=== PATIENT | female | born 1960 | race Caucasian/White ===

== ENCOUNTER 2024-09-08 18:17 | Emergency (ER) | payer MEDICARE, SELFPAY ==
[2024-09-08] VITALS (33 sets, daily range): BP systolic 86–130; BP diastolic 55–103; PULSE 88–118; RESP 13–28; TEMP 37.1–39.4; O2SAT 94–100
--- NOTE | ~2024-09-08 | CT_ITS ---
EXAMINATION: CT abdomen pelvis w con DATE: 09/08/2024 20:45 INDICATION: Sepsis. Diarrhea. TECHNIQUE: Computed tomography (CT) of the abdomen and pelvis was performed with 100 mL Omnipaque 350 intravenous contrast. Automated exposure control and iterative reconstruction technique were employe d. The dose-length product was 661.65 mGy-cm. COMPARISON: None. FINDINGS: The visualized portions of the lung bases demonstrate mild atelectasis. No pleural effusion . The heart size is normal. No pericardial effusion. Motion artifact is noted. There are cysts in the liver measuring up to 10 mm. The gallbladder and spleen are normal. There is a gastrostomy tube in e xpected position. The adrenal glands are normal. There is moderate atrophy of right kidney and mild a trophy of left kidney. There are cysts in the kidneys measuring up to 2.1 cm on the right. There are approximately 6 stones in right kidney measuring up to 5 mm. There is mild right hydroureter. There i s mild left hydronephrosis and hydroureter. There is urothelial enhancement of both ureters, consiste nt with pyelitis. There is diffuse bladder wall thickening, consistent with cystitis. There is a Fole y catheter in expected position. There is a large volume of stool in the colon. The appendix is not v isualized. There is a 12 mm uterine fibroid. There are no pathologically enlarged lymph nodes. There is no free intraperitoneal fluid. There are erosions of right parasymphyseal pubis near the course of the Nichols catheter. There is mild lumbar spondylosis. IMPRESSION: 1. Cystitis. 2. Bilateral pyelitis. Mild right hydroureter. Mild left hydronephrosis and hydroureter. 3. Erosions of right pubic symphysis, consistent with osteomyelitis, likely secondary to urinary trac t infection. Reviewed, dictated and finalized at location A. AD WINDER AUTOMATIC IMPRESSION: 1. Cystitis. 2. Bilateral pyelitis. Mild right hydroureter. Mild left hydronephrosis and hyd roureter. 3. Erosions of right pubic symphysis, consistent with osteomyelitis, likely sec ondary to urinary tract infection.
--- NOTE | ~2024-09-08 | XR_ITS ---
EXAMINATION: XR chest 1V DATE: 09/08/2024 19:12 INDICATION: Pneumonia. TECHNIQUE: A single frontal view of the chest was obtained. COMPARISON: Chest 2 views 05/03/2011 FINDINGS: There is mild atelectasis in right midlung zone. There are airspace opacities in left lower lung zone. No pleural effusion or pneumothorax. The heart size is normal. IMPRESSION: 1. Airspace opacities in left lower lung zone, consistent with atelectasis versus pneumonia. Reviewed, dictated and finalized at location A. AL PLATE FILLER IMPRESSION: 1. Airspace opacities in left lower lung zone, consistent with atelectasis vers us pneumonia.
--- NOTE | ~2024-09-08 | CT_ITS ---
EXAMINATION: CT brain wo con DATE: 09/08/2024 22:04 INDICATION: Altered mental status. TECHNIQUE: Computed tomography (CT) of the head was performed without intravenous contrast. The mA wa s adjusted according to patient size. Iterative reconstruction technique was employed. The dose-lengt h product was 1286.33 mGy-cm. COMPARISON: None FINDINGS: There is diffuse brain volume loss. There is no intracranial hemorrhage, acute infarction, or abnormal intracranial mass lesion. There are scattered areas of low attenuation in the cerebral wh ite matter. The ventricles are normal in size. The orbits are normal. There is mild mucosal thickenin g in the ethmoid sinuses. The mastoid air cells are normal. IMPRESSION: 1. Extensive nonspecific cerebral white matter disease, which likely represents chronic small vessel ischemic disease. Reviewed, dictated and finalized at location A. TICAL MINISTRIES PROFESSOR
--- NOTE | 2024-09-08 18:40 | ECG_ITS ---
Test Date: 2024-09-08 19:25:57 Measurements Intervals [place] Rate: 102 P: 12 OR: 181 QRS: 51 QRSD: 104 T: 33 QT: 329 QTc: 430 Interpretive Statements SINUS TACHYCARDIA BORDERLINE ST-T WAVE ABNORMALITY- ANT/INF LEADS BASELINE ARTIFACT- I, II, III, AVR, AVL, AVF, V1 BORDERLINE ECG No previous ECG available for comparison Electronically Signed On 09-08-2024 20:23:19 [employer] by Jasbir Albright D.O.
--- NOTE | 2024-09-08 18:47 | ED_ITS ---
HPI - Altered Mental Status General Chief Complaint: Altered Mental Status <Lui Will PA-C - Last Filed: 09/09/24 02:06> Stated Complaint: AMS, bedbound <Lui Will PA-C - Last Filed: 09/09/24 02:06> Time Seen by Provider: 09/08/24 18:39 <Lui Will PA-C - Last Filed: 09/09/24 02:06> Source: patient and EMS <Lui Will PA-C - Last Filed: 09/09/24 02:06> Mode of arrival: EMS <Lui Will PA-C - Last Filed: 09/09/24 02:06> Limitations: altered mental status <Lui Will PA-C - Last Filed: 09/09/24 02:06> History of Present Illness HPI narrative: This is a 64-year-old female with PMH of MS, bedbound, chronic Nichols catheterization, G tube who presents to the ED for chief complaint of altered mental status. Family members note that she often does not speak much but is normally a lot more alert and able hold attention. They report that she has been dealing with alteration in bowel movements with soft stools and decreased output. They report she had a recent scan that showed maybe some constipation but no acute findings. They do note that she has had recurrent UTIs with a chronic Nichols catheter. Fever was onset today. <Lui Will PA-C - Last Filed: 09/09/24 02:06> Related Data Home Medications: Home Medications Medication Instructions Recorded Confirmed amantadine HCl 100 mg capsule 100 mg PO BID 09/09/24 09/09/24 baclofen 10 mg tablet 10 mg PO PRN 09/09/24 09/09/24 carbamazepine 100 mg chewable 100 mg PO PRN 09/09/24 09/09/24 tablet duloxetine 60 mg capsule,delayed 60 mg PO AC 09/09/24 09/09/24 release lacosamide 50 mg tablet (Vimpat) 50 mg PO BID 09/09/24 09/09/24 polyethylene glycol 3350 17 gram 17 g feeding tube QAM 09/09/24 09/09/24 oral powder packet (Miralax) trospium 20 mg tablet 20 mg PO QAM 09/09/24 09/09/24 <Lui Will PA-C - Last Filed: 09/09/24 02:06> Allergies/Adverse Reactions: Allergies Allergy/AdvReac Type Severity Reaction Status Date / Time ibuprofen Allergy Unknown Unknown Verified 09/08/24 18:34 Sulfa (Sulfonamide Allergy Hives Verified 09/08/24 18:34 Antibiotics) <Lui Will PA-C - Last Filed: 09/09/24 02:06> Review of Systems Review of Systems: ROS unobtainable: Yes unobtainable due to mental status <Lui Will PA-C - Last Filed: 09/09/24 02:06> [facility] Social History Social History: Social History Alcohol intake: never <Lui Will PA-C - Last Filed: 09/09/24 02:06> Exam Narrative: GENERAL: Bed-bound. Limbs contracted. HEAD: Normocephalic, atraumatic. EYES: PERRLA and EOMI. ENT: Nares clear, no rhinorrhea or epistaxis. Mucous membranes moist. Oropharynx without tonsillar hypertrophy exudate or other lesions. NECK: Supple. No adenopathy or masses. CHEST: No respiratory distress. Clear to auscultation. No wheezes rales or rhonchi HEART: Regular rate and rhythm. No murmur heard. Normal peripheral pulses. ABDOMEN: Soft, nontender, nondistended, normal active bowel sounds. MSK: Normal range of motion. No edema. SKIN: Warm, dry, no rash. NEURO: Alert. Orientation difficult to assess. Patient responds to questions appropriately on occasion. No focal deficits. Moves all extremities spontaneously. Extremities are contracted. PSYCH: Normal mood and affect. <MARY Hayward Last Filed: 09/09/24 02:06> Course Course Emergency Course: ZYCH 1700: Patient signed out to me pending transfer to [facility]. She was added to the transfer list at [facility] under Dr. Doty. Waitlisted. She was added to the transfer list at [facility] under Dr. Chase. Waitlisted. Home meds were started. Family was updated. plan for admission in the AM if she is not transferred. Transfer to [facility] overnight <Bandar Elizabeth MD - Last Filed: 09/10/24 07:19> Vital Signs Vital signs: Vital Signs Temperature 102.9 F H 09/08/24 18:21 Pulse Rate 117 H 09/08/24 18:21 Respiratory Rate 20 09/08/24 18:21 Blood Pressure 121/74 09/08/24 18:21 Pulse Oximetry 95 09/08/24 18:21 Oxygen Delivery Room Air 09/08/24 18:21 Temperature 98.7 F 09/09/24 19:25 Pulse Rate 98 09/09/24 21:54 Respiratory Rate 18 09/09/24 21:54 Blood Pressure 166/91 H 09/09/24 21:54 Pulse Oximetry 97 09/09/24 21:54 Oxygen Delivery Room Air 09/09/24 08:00 <Lui Will PA-C - Last Filed: 09/09/24 02:06> Vital Signs Temperature 102.9 F H 09/08/24 18:21 Pulse Rate 117 H 09/08/24 18:21 Respiratory Rate 20 09/08/24 18:21 Blood Pressure 121/74 09/08/24 18:21 Pulse Oximetry 95 09/08/24 18:21 Oxygen Delivery Room Air 09/08/24 18:21 Temperature 98.7 F 09/09/24 19:25 Pulse Rate 98 09/09/24 21:54 Respiratory Rate 18 09/09/24 21:54 Blood Pressure 166/91 H 09/09/24 21:54 Pulse Oximetry 97 09/09/24 21:54 Oxygen Delivery Room Air 09/09/24 08:00 <Mora Drake MD - Last Filed: 09/09/24 06:45> Vital Signs Temperature 102.9 F H 09/08/24 18:21 Pulse Rate 117 H 09/08/24 18:21 Respiratory Rate 20 09/08/24 18:21 Blood Pressure 121/74 09/08/24 18:21 Pulse Oximetry 95 09/08/24 18:21 Oxygen Delivery Room Air 09/08/24 18:21 Temperature 98.7 F 09/09/24 19:25 Pulse Rate 98 09/09/24 21:54 Respiratory Rate 18 09/09/24 21:54 Blood Pressure 166/91 H 09/09/24 21:54 Pulse Oximetry 97 11/21/24 21:54 Oxygen Delivery Room Air 09/09/24 08:00 <Bandar Elizabeth MD - Last Filed: 09/10/24 07:19> MDM - Altered Mental Status MDM Narrative Medical decision making narrative: This is a 64-year-old female with history of MS who presents to the ED for altered mental status and fever. Vitals initially showing slight tachycardia and elevated temperature of a 102.9? F. blood pressure stable. Exam remarkable for the above. Patient is protecting her airway. Lab work shows a normal white count on the CBC. CMP remarkable for slightly elevated potassium of 5.7. BUN elevated at 42 but creatinine remains normal. Lactic acid slightly elevated at 2.2 on arrival. CRP 6.4. Urinalysis shows evidence of overt infection with 3+ leuks, greater than 100 whites and reds. On arrival patient was started on sepsis protocol with sepsis pulse fluids as well as broad-spectrum antibiotics including Rocephin, meropenem, vancomycin. Rectal Tylenol was administered which did help with the fever. Tachycardia improving with fluids. CT brain: IMPRESSION: 1. Extensive nonspecific cerebral white matter disease, which likely represents chronic small vessel ischemic disease. CT abd pelvis w con: IMPRESSION: 1. Cystitis. 2. Bilateral pyelitis. Mild right hydroureter. Mild left hydronephrosis and hydroureter. 3. Erosions of right pubic symphysis, consistent with osteomyelitis, likely secondary to urinary tract infection. CXR: IMPRESSION: 1. Airspace opacities in left lower lung zone, consistent with atelectasis versus pneumonia. . Presentation today most likely consistent with urosepsis with possible associat ed osteomyelitis of the pubic symphysis. Discussed the case with our hospitalist who does recommend that patient be transferred as we do not have infectious disease. I discussed the case with Dr. Olivares ([facility] Hospitalist) at [facility]. She does accept the patient and has no further recommendations at this time Pt will be handed off to attending Dr. Drake at the time of shift change pending bed placement at [place]. <Lui Will PA-C - Last Filed: 09/09/24 02: 06> This is a 64-year-old female with history of MS who presents to the ED for altered mental status and fever. Vitals initially showing slight tachycardia and elevated temperature of a 102.9? F. blood pressure stable. Exam remarkable for the above. Patient is protecting her airway. Lab work shows a normal white count on the CBC. CMP remarkable for slightly elevated potassium of 5.7. BUN elevated at 42 but creatinine remains normal. Lactic acid slightly elevated at 2.2 on arrival. CRP 6.4. Urinalysis shows evidence of overt infection with 3+ leuks, greater than 100 whites and reds. On arrival patient was started on sepsis protocol with sepsis pulse fluids as well as broad-spectrum antibiotics including Rocephin, meropenem, vancomycin. Rectal Tylenol was administered which did help with the fever. Tachycardia improving with fluids. CT brain IMPRESSION: 1. Extensive nonspecific cerebral white matter disease, which likely represents chronic small vessel ischemic disease. CT abd pelvis w con IMPRESSION: 1. Cystitis. 2. Bilateral pyelitis. Mild right hydroureter. Mild left hydronephrosis and hydroureter. 3. Erosions of right pubic symphysis, consistent with osteomyelitis, likely se condary to urinary tract infection. CXR IMPRESSION: 1. Airspace opacities in left lower lung zone, consistent with atelectasis versus pneumonia. Presentation today most likely consistent with urosepsis with possible associated osteomyelitis of the pubic symphysis. Discussed the case with our hospitalist who does recommend that patient be transferred as we do not have in fectious disease. I discussed the case with Dr. Olivares ([facility] Hospitalist) at [facility]. She leiva s accept the patient and has no further recommendations at this time Pt will be handed off to attending Dr. Drake at the time of shift change pending bed placement at [place]. Noelle: Attempted to admit the patient to our hospitalist pending a bed placement at [facility] giving the predicted wait time of 1 week for a bed. Hospitalist recommends waiting until day team to try to admit the patient pending her bed at [facility]. Got called in to patients room by the RN to evaluate the patient's back. Patient does have a diffuse erythematous rash to her back consistent with yeast infection. Wound consult was placed at this time and order for nystatin cream was placed. <Mora Drake MD - Last Filed: 09/09/24 06:45> Lab Data Result diagrams: 09/09/24 17:24 09/09/24 17:23 <Lui Will PA-C - Last Filed: 09/09/24 02:06> Labs: Lab Results 09/08/24 09/08/24 09/08/24 Range/Units 18:57 19:48 22:58 WBC 5.2 (4.5-10.0) K/mm3 RBC 4.88 (4.2-5.4) M/mm3 Hgb 14.7 (12.0-15.0) g/dL Hct 45.6 (37.0-47.0) % MCV 93.4 (80-100) fl MCH 30.1 (26-34) pg MCHC 32.2 (32-36) g/dl RDW 15.3 H (11.5-14.5) % Plt Count 205 (150-375) k/mm3 MPV 10.2 (7.4-10.4) fl Immature Gran % (Auto) Not Reportable Neut % (Auto) Not Reportable Lymph % (Auto) Not Reportable Barren % (Auto) Not Reportable Eos % (Auto) Not Reportable Baso % (Auto) Not Reportable Lymph # (Auto) Not Reportable Barren # (Auto) Not Reportable Eos # (Auto) Not Reportable Baso # (Auto) Not Reportable Abs Immat Gran (auto) Not Reportable Absolute Neuts (auto) Not Reportable Absolute Nucleated RBC Not Reportable Total Counted 100 Neutrophils % (Manual) 74 H (46-73) % Band Neutrophils % 10 H (0-6) % Lymphocytes % (Manual) 7.0 L (18-44) % Monocytes % (Manual) 9 (3-9) % Nucleated RBC % Not Reportable Abs Neuts (Manual) 4.36 (1.7-7.2) K/mm3 Abs Lymphs (Manual) 0.36 L (1.1-4.5) K/mm3 Abs Monocytes (Manual) 0.46 (0.1-0.90) K/mm3 Platelet Estimate Adequate (Adequate) % Immature Plt Fraction (0.9-11.2) % Hypochromasia 1+ Anisocytosis 1+ Schistocytes None seen PT 14.3 (11.1-14.7) Seconds INR 1.1 APTT 28.4 (22.3-36.8) Seconds Sodium 136 L (137-145) mmol/L Potassium 5.7 H (3.4-5.0) mmol/L Chloride 100 (98-107) mmol/L Carbon Dioxide 27 (22-30) mmol/L Anion Gap 9 (4-12) mmol/L BUN 42 H (7-17) mg/dL Creatinine 0.80 (0.7-1.0) mg/dL Estim Creat Clear Calc 52 ml/min Estimated GFR > 60 (59 - ) Glucose 95 (65-110) mg/dL Lactic Acid 2.2 H (0.7-2.0) mmol/L Calcium 9.4 (8.4-10.2) mg/dL Total Bilirubin 0.9 (0.2-1.3) mg/dL AST 32 (14-36) U/L ALT 31 (6-35) U/L Alkaline Phosphatase 174 H (38-126) U/L C-Reactive Protein 6.4 H (<1.0) mg/dL Total Protein 8.0 (6.3-8.2) g/dL Albumin 4.2 (3.5-5.1) g/dL Lipase 62 (23-300) U/L Urine Color Dark yellow (Yellow) Urine Appearance Turbid H (Clear) Urine pH 8.0 (5.0-9.0) Ur Specific [place] 1.013 (1.001-1.035) Urine Protein 2+ H (Negative) mg/dL Urine Glucose (UA) Negative (Negative) mg/dL Urine Ketones Negative (Negative) mg/dL Ur Blood (Man) 3+ H (Negative) Urine Nitrate Negative (Negative) Urine Bilirubin Negative (Negative) Urine Urobilinogen 0.2 (<2.0) mg/dL Add Ur Microanalysis Reviewed Leukocyte Esterase Rfl 3+ H (Negative) STEVE/UL Urine RBC >100 H (0-2) /hpf Urine WBC >100 H (0-3) /hpf Ur Squamous Epith Cells Many H (Few) /hpf Urine Bacteria 4+ /hpf Urine Casts >20 Nasal MRSA (PCR) Detected A* (NOT DETECTE) 09/09/24 09/09/24 09/09/24 Range/Units 08:52 17:23 17:24 WBC 9.2 (4.5-10.0) K/mm3 RBC 3.78 L (4.2-5.4) M/mm3 Hgb 11.2 L D (12.0-15.0) g/dL Hct 35.2 L (37.0-47.0) % MCV 93.1 (80-100) fl MCH 29.6 (26-34) pg MCHC 31.8 L (32-36) g/dl RDW 15.1 H (11.5-14.5) % Plt Count 144 L (150-375) k/mm3 MPV 10.3 (7.4-10.4) fl Immature Gran % (Auto) 0.4 Neut % (Auto) 78.5 H Lymph % (Auto) 5.4 L Barren % (Auto) 12.8 H Eos % (Auto) 2.6 Baso % (Auto) 0.3 Lymph # (Auto) 0.50 L Barren # (Auto) 1.2 H Eos # (Auto) 0.2 Baso # (Auto) 0.0 Abs Immat Gran (auto) 0.04 H Absolute Neuts (auto) 7.2 H Absolute Nucleated RBC 0.000 Total Counted Neutrophils % (Manual) (46-73) % Band Neutrophils % (0-6) % Lymphocytes % (Manual) (18-44) % Monocytes % (Manual) (3-9) % Nucleated RBC % 0.0 Abs Neuts (Manual) (1.7-7.2) K/mm3 Abs Lymphs (Manual) (1.1-4.5) K/mm3 Abs Monocytes (Manual) (0.1-0.90) K/mm3 Platelet Estimate (Adequate) % Immature Plt Fraction 3.5 (0.9-11.2) % Hypochromasia Anisocytosis Schistocytes PT (11.1-14.7) Seconds INR APTT (22.3-36.8) Seconds Sodium 133 L (137-145) mmol/L Potassium 4.6 (3.4-5.0) mmol/L Chloride 99 (98-107) mmol/L Carbon Dioxide 32 H (22-30) mmol/L Anion Gap 2 L (4-12) mmol/L BUN 25 H D (7-17) mg/dL Creatinine 0.70 0.60 L (0.7-1.0) mg/dL Estim Creat Clear Calc 59 68 ml/min Estimated GFR > 60 > 60 (59 - ) Glucose 116 H (65-110) mg/dL Lactic Acid 2.5 H 0.7 (0.7-2.0) mmol/L Calcium 8.9 (8.4-10.2) mg/dL Total Bilirubin 0.7 (0.2-1.3) mg/dL AST 37 H (14-36) U/L ALT 31 (6-35) U/L Alkaline Phosphatase 115 (38-126) U/L C-Reactive Protein (<1.0) mg/dL Total Protein 7.0 (6.3-8.2) g/dL Albumin 3.3 L (3.5-5.1) g/dL Lipase (23-300) U/L Urine Color (Yellow) Urine Appearance (Clear) Urine pH (5.0-9.0) Ur Specific [place] (1.001-1.035) Urine Protein (Negative) mg/dL Urine Glucose (UA) (Negative) mg/dL Urine Ketones (Negative) mg/dL Ur Blood (Man) (Negative) Urine Nitrate (Negative) Urine Bilirubin (Negative) Urine Urobilinogen (<2.0) mg/dL Add Ur Microanalysis Leukocyte Esterase Rfl (Negative) STEVE/UL Urine RBC (0-2) /hpf Urine WBC (0-3) /hpf Ur Squamous Epith Cells (Few) /hpf Urine Bacteria /hpf Urine Casts Nasal MRSA (PCR) (NOT DETECTE) <Lui Will PA-C - Last Filed: 09/09/24 02:06> Lab Results 09/08/24 09/08/24 09/08/24 Range/Units 18:57 19:48 22:58 WBC 5.2 (4.5-10.0) K/mm3 RBC 4.88 (4.2-5.4) M/mm3 Hgb 14.7 (12.0-15.0) g/dL Hct 45.6 (37.0-47.0) % MCV 93.4 (80-100) fl MCH 30.1 (26-34) pg MCHC 32.2 (32-36) g/dl RDW 15.3 H (11.5-14.5) % Plt Count 205 (150-375) k/mm3 MPV 10.2 (7.4-10.4) fl Immature Gran % (Auto) Not Reportable Neut % (Auto) Not Reportable Lymph % (Auto) Not Reportable Barren % (Auto) Not Reportable Eos % (Auto) Not Reportable Baso % (Auto) Not Reportable Lymph # (Auto) Not Reportable Barren # (Auto) Not Reportable Eos # (Auto) Not Reportable Baso # (Auto) Not Reportable Abs Immat Gran (auto) Not Reportable Absolute Neuts (auto) Not Reportable Absolute Nucleated RBC Not Reportable Total Counted 100 Neutrophils % (Manual) 74 H (46-73) % Band Neutrophils % 10 H (0-6) % Lymphocytes % (Manual) 7.0 L (18-44) % Monocytes % (Manual) 9 (3-9) % Nucleated RBC % Not Reportable Abs Neuts (Manual) 4.36 (1.7-7.2) K/mm3 Abs Lymphs (Manual) 0.36 L (1.1-4.5) K/mm3 Abs Monocytes (Manual) 0.46 (0.1-0.90) K/mm3 Platelet Estimate Adequate (Adequate) % Immature Plt Fraction (0.9-11.2) % Hypochromasia 1+ Anisocytosis 1+ Schistocytes None seen PT 14.3 (11.1-14.7) Seconds INR 1.1 APTT 28.4 (22.3-36.8) Seconds Sodium 136 L (137-145) mmol/L Potassium 5.7 H (3.4-5.0) mmol/L Chloride 100 (98-107) mmol/L Carbon Dioxide 27 (22-30) mmol/L Anion Gap 9 (4-12) mmol/L BUN 42 H (7-17) mg/dL Creatinine 0.80 (0.7-1.0) mg/dL Estim Creat Clear Calc 52 ml/min Estimated GFR > 60 (59 - ) Glucose 95 (65-110) mg/dL Lactic Acid 2.2 H (0.7-2.0) mmol/L Calcium 9.4 (8.4-10.2) mg/dL Total Bilirubin 0.9 (0.2-1.3) mg/dL AST 32 (14-36) U/L ALT 31 (6-35) U/L Alkaline Phosphatase 174 H (38-126) U/L C-Reactive Protein 6.4 H (<1.0) mg/dL Total Protein 8.0 (6.3-8.2) g/dL Albumin 4.2 (3.5-5.1) g/dL Lipase 62 (23-300) U/L Urine Color Dark yellow (Yellow) Urine Appearance Turbid H (Clear) Urine pH 8.0 (5.0-9.0) Ur Specific [place] 1.013 (1.001-1.035) Urine Protein 2+ H (Negative) mg/dL Urine Glucose (UA) Negative (Negative) mg/dL Urine Ketones Negative (Negative) mg/dL Ur Blood (Man) 3+ H (Negative) Urine Nitrate Negative (Negative) Urine Bilirubin Negative (Negative) Urine Urobilinogen 0.2 (<2.0) mg/dL Add Ur Microanalysis Reviewed Leukocyte Esterase Rfl 3+ H (Negative) STEVE/UL Urine RBC >100 H (0-2) /hpf Urine WBC >100 H (0-3) /hpf Ur Squamous Epith Cells Many H (Few) /hpf Urine Bacteria 4+ /hpf Urine Casts >20 Nasal MRSA (PCR) Detected A* (NOT DETECTE) 09/09/24 09/09/24 09/09/24 Range/Units 08:52 17:23 17:24 WBC 9.2 (4.5-10.0) K/mm3 RBC 3.78 L (4.2-5.4) M/mm3 Hgb 11.2 L D (12.0-15.0) g/dL Hct 35.2 L (37.0-47.0) % MCV 93.1 (80-100) fl MCH 29.6 (26-34) pg MCHC 31.8 L (32-36) g/dl RDW 15.1 H (11.5-14.5) % Plt Count 144 L (150-375) k/mm3 MPV 10.3 (7.4-10.4) fl Immature Gran % (Auto) 0.4 Neut % (Auto) 78.5 H Lymph % (Auto) 5.4 L Barren % (Auto) 12.8 H Eos % (Auto) 2.6 Baso % (Auto) 0.3 Lymph # (Auto) 0.50 L Barren # (Auto) 1.2 H Eos # (Auto) 0.2 Baso # (Auto) 0.0 Abs Immat Gran (auto) 0.04 H Absolute Neuts (auto) 7.2 H Absolute Nucleated RBC 0.000 Total Counted Neutrophils % (Manual) (46-73) % Band Neutrophils % (0-6) % Lymphocytes % (Manual) (18-44) % Monocytes % (Manual) (3-9) % Nucleated RBC % 0.0 Abs Neuts (Manual) (1.7-7.2) K/mm3 Abs Lymphs (Manual) (1.1-4.5) K/mm3 Abs Monocytes (Manual) (0.1-0.90) K/mm3 Platelet Estimate (Adequate) % Immature Plt Fraction 3.5 (0.9-11.2) % Hypochromasia Anisocytosis Schistocytes PT (11.1-14.7) Seconds INR APTT (22.3-36.8) Seconds Sodium 133 L (137-145) mmol/L Potassium 4.6 (3.4-5.0) mmol/L Chloride 99 (98-107) mmol/L Carbon Dioxide 32 H (22-30) mmol/L Anion Gap 2 L (4-12) mmol/L BUN 25 H D (7-17) mg/dL Creatinine 0.70 0.60 L (0.7-1.0) mg/dL Estim Creat Clear Calc 59 68 ml/min Estimated GFR > 60 > 60 (59 - ) Glucose 116 H (65-110) mg/dL Lactic Acid 2.5 H 0.7 (0.7-2.0) mmol/L Calcium 8.9 (8.4-10.2) mg/dL Total Bilirubin 0.7 (0.2-1.3) mg/dL AST 37 H (14-36) U/L ALT 31 (6-35) U/L Alkaline Phosphatase 115 (38-126) U/L C-Reactive Protein (<1.0) mg/dL Total Protein 7.0 (6.3-8.2) g/dL Albumin 3.3 L (3.5-5.1) g/dL Lipase (23-300) U/L Urine Color (Yellow) Urine Appearance (Clear) Urine pH (5.0-9.0) Ur Specific [place] (1.001-1.035) Urine Protein (Negative) mg/dL Urine Glucose (UA) (Negative) mg/dL Urine Ketones (Negative) mg/dL Ur Blood (Man) (Negative) Urine Nitrate (Negative) Urine Bilirubin (Negative) Urine Urobilinogen (<2.0) mg/dL Add Ur Microanalysis Leukocyte Esterase Rfl (Negative) STEVE/UL Urine RBC (0-2) /hpf Urine WBC (0-3) /hpf Ur Squamous Epith Cells (Few) /hpf Urine Bacteria /hpf Urine Casts Nasal MRSA (PCR) (NOT DETECTE) <Mora Drake MD - Last Filed: 09/09/24 06:45> Lab Results 09/08/24 09/08/24 09/08/24 Range/Units 18:57 19:48 22:58 WBC 5.2 (4.5-10.0) K/mm3 RBC 4.88 (4.2-5.4) M/mm3 Hgb 14.7 (12.0-15.0) g/dL Hct 45.6 (37.0-47.0) % MCV 93.4 (80-100) fl MCH 30.1 (26-34) pg MCHC 32.2 (32-36) g/dl RDW 15.3 H (11.5-14.5) % Plt Count 205 (150-375) k/mm3 MPV 10.2 (7.4-10.4) fl Immature Gran % (Auto) Not Reportable Neut % (Auto) Not Reportable Lymph % (Auto) Not Reportable Barren % (Auto) Not Reportable Eos % (Auto) Not Reportable Baso % (Auto) Not Reportable Lymph # (Auto) Not Reportable Barren # (Auto) Not Reportable Eos # (Auto) Not Reportable Baso # (Auto) Not Reportable Abs Immat Gran (auto) Not Reportable Absolute Neuts (auto) Not Reportable Absolute Nucleated RBC Not Reportable Total Counted 100 Neutrophils % (Manual) 74 H (46-73) % Band Neutrophils % 10 H (0-6) % Lymphocytes % (Manual) 7.0 L (18-44) % Monocytes % (Manual) 9 (3-9) % Nucleated RBC % Not Reportable Abs Neuts (Manual) 4.36 (1.7-7.2) K/mm3 Abs Lymphs (Manual) 0.36 L (1.1-4.5) K/mm3 Abs Monocytes (Manual) 0.46 (0.1-0.90) K/mm3 Platelet Estimate Adequate (Adequate) % Immature Plt Fraction (0.9-11.2) % Hypochromasia 1+ Anisocytosis 1+ Schistocytes None seen PT 14.3 (11.1-14.7) Seconds INR 1.1 APTT 28.4 (22.3-36.8) Seconds Sodium 136 L (137-145) mmol/L Potassium 5.7 H (3.4-5.0) mmol/L Chloride 100 (98-107) mmol/L Carbon Dioxide 27 (22-30) mmol/L Anion Gap 9 (4-12) mmol/L BUN 42 H (7-17) mg/dL Creatinine 0.80 (0.7-1.0) mg/dL Estim Creat Clear Calc 52 ml/min Estimated GFR > 60 (59 - ) Glucose 95 (65-110) mg/dL Lactic Acid 2.2 H (0.7-2.0) mmol/L Calcium 9.4 (8.4-10.2) mg/dL Total Bilirubin 0.9 (0.2-1.3) mg/dL AST 32 (14-36) U/L ALT 31 (6-35) U/L Alkaline Phosphatase 174 H (38-126) U/L C-Reactive Protein 6.4 H (<1.0) mg/dL Total Protein 8.0 (6.3-8.2) g/dL Albumin 4.2 (3.5-5.1) g/dL Lipase 62 (23-300) U/L Urine Color Dark yellow (Yellow) Urine Appearance Turbid H (Clear) Urine pH 8.0 (5.0-9.0) Ur Specific [place] 1.013 (1.001-1.035) Urine Protein 2+ H (Negative) mg/dL Urine Glucose (UA) Negative (Negative) mg/dL Urine Ketones Negative (Negative) mg/dL Ur Blood (Man) 3+ H (Negative) Urine Nitrate Negative (Negative) Urine Bilirubin Negative (Negative) Urine Urobilinogen 0.2 (<2.0) mg/dL Add Ur Microanalysis Reviewed Leukocyte Esterase Rfl 3+ H (Negative) STEVE/UL Urine RBC >100 H (0-2) /hpf Urine WBC >100 H (0-3) /hpf Ur Squamous Epith Cells Many H (Few) /hpf Urine Bacteria 4+ /hpf Urine Casts >20 Nasal MRSA (PCR) Detected A* (NOT DETECTE) 09/09/24 09/09/24 09/09/24 Range/Units 08:52 17:23 17:24 WBC 9.2 (4.5-10.0) K/mm3 RBC 3.78 L (4.2-5.4) M/mm3 Hgb 11.2 L D (12.0-15.0) g/dL Hct 35.2 L (37.0-47.0) % MCV 93.1 (80-100) fl MCH 29.6 (26-34) pg MCHC 31.8 L (32-36) g/dl RDW 15.1 H (11.5-14.5) % Plt Count 144 L (150-375) k/mm3 MPV 10.3 (7.4-10.4) fl Immature Gran % (Auto) 0.4 Neut % (Auto) 78.5 H Lymph % (Auto) 5.4 L Barren % (Auto) 12.8 H Eos % (Auto) 2.6 Baso % (Auto) 0.3 Lymph # (Auto) 0.50 L [place] # (Auto) 1.2 H Eos # (Auto) 0.2 Baso # (Auto) 0.0 Abs Immat Gran (auto) 0.04 H Absolute Neuts (auto) 7.2 H Absolute Nucleated RBC 0.000 Total Counted Neutrophils % (Manual) (46-73) % Band Neutrophils % (0-6) % Lymphocytes % (Manual) (18-44) % Monocytes % (Manual) (3-9) % Nucleated RBC % 0.0 Abs Neuts (Manual) (1.7-7.2) K/mm3 Abs Lymphs (Manual) (1.1-4.5) K/mm3 Abs Monocytes (Manual) (0.1-0.90) K/mm3 Platelet Estimate (Adequate) % Immature Plt Fraction 3.5 (0.9-11.2) % Hypochromasia Anisocytosis Schistocytes PT (11.1-14.7) Seconds INR APTT (22.3-36.8) Seconds Sodium 133 L (137-145) mmol/L Potassium 4.6 (3.4-5.0) mmol/L Chloride 99 (98-107) mmol/L Carbon Dioxide 32 H (22-30) mmol/L Anion Gap 2 L (4-12) mmol/L BUN 25 H D (7-17) mg/dL Creatinine 0.70 0.60 L (0.7-1.0) mg/dL Estim Creat Clear Calc 59 68 ml/min Estimated GFR > 60 > 60 (59 - ) Glucose 116 H (65-110) mg/dL Lactic Acid 2.5 H 0.7 (0.7-2.0) mmol/L Calcium 8.9 (8.4-10.2) mg/dL Total Bilirubin 0.7 (0.2-1.3) mg/dL AST 37 H (14-36) U/L ALT 31 (6-35) U/L Alkaline Phosphatase 115 (38-126) U/L C-Reactive Protein (<1.0) mg/dL Total Protein 7.0 (6.3-8.2) g/dL Albumin 3.3 L (3.5-5.1) g/dL Lipase (23-300) U/L Urine Color (Yellow) Urine Appearance (Clear) Urine pH (5.0-9.0) Ur Specific [place] (1.001-1.035) Urine Protein (Negative) mg/dL Urine Glucose (UA) (Negative) mg/dL Urine Ketones (Negative) mg/dL Ur Blood (Man) (Negative) Urine Nitrate (Negative) Urine Bilirubin (Negative) Urine Urobilinogen (<2.0) mg/dL Add Ur Microanalysis Leukocyte Esterase Rfl (Negative) STEVE/UL Urine RBC (0-2) /hpf Urine WBC (0-3) /hpf Ur Squamous Epith Cells (Few) /hpf Urine Bacteria /hpf Urine Casts Nasal MRSA (PCR) (NOT DETECTE) <Bandar Elizabeth MD - Last Filed: 09/10/24 07:19> Discharge Plan Discharge Clinical Impression: Altered mental status, Sepsis, Acute pyelitis, Osteomyelitis <Lui Will PA-C - Last Filed: 09/09/24 02:06> Patient Disposition: [facility] <Lui Will PA-C - Last Filed: 09/09/24 02:06> Condition: Stable <Lui Will PA-C - Last Filed: 09/09/24 02:06> Instructions: Antibiotic Form <Lui Will PA-C - Last Filed: 09/09/24 02:06> Prescriptions: No Action amantadine HCl 100 mg capsule 100 mg PO BID baclofen 10 mg tablet 10 mg PO PRN Rx Instructions: 5x/day carbamazepine 100 mg tablet,chewable 100 mg PO PRN Rx Instructions: 4x/day trospium 20 mg tablet 20 mg PO QAM duloxetine 60 mg capsule,delayed release(DR/EC) 60 mg PO AC lacosamide [Vimpat] 50 mg tablet 50 mg PO BID polyethylene glycol 3350 [Miralax] 17 gram Powder In Packet 17 g feeding tube QAM <Lui Will PA-C - Last Filed: 09/09/24 02:06> Follow-up/Referrals: Paul Stoner MD [Primary Care Provider] - <Lui Will PA-C - Last Filed: 09/09/24 02:06>
[2024-09-08 19:03] LABS: Hematocrit 45.6 % (37.0-47.0); Hemoglobin 14.7 g/dL (12.0-15.0); Mean Corpuscular HGB Conc 32.2 g/dl (32-36); Mean Corpuscular Hemoglobin 30.1 pg (26-34); Mean Corpuscular Volume 93.4 fl (80-100); Mean Platelet Volume 10.2 fl (7.4-10.4); Platelet Count Result 205 k/mm3 (150-375); Red Blood Count 4.88 M/mm3 (4.2-5.4); Red Cell Distribution Width 15.3 % (11.5-14.5); White Blood Count 5.2 K/mm3 (4.5-10.0)
[2024-09-08 19:13] LABS: INR 1.1; Prothrombin Time 14.3 Seconds (11.1-14.7)
[2024-09-08 19:14] LABS: Partial Thromboplastin Time 28.4 Seconds (22.3-36.8)
[2024-09-08 19:15] LABS: Alanine Aminotransferase 31 U/L (6-35); Albumin Level 4.2 g/dL (3.5-5.1); Alkaline Phosphatase 174 U/L (38-126); Anion Gap 9 mmol/L (4-12); Aspartate Amino Transferase 32 U/L (14-36); Bilirubin,Total 0.9 mg/dL (0.2-1.3); Blood Urea Nitrogen 42 mg/dL (7-17); CRP 6.4 mg/dL (<1.0); Calcium 9.4 mg/dL (8.4-10.2); Carbon Dioxide 27 mmol/L (22-30); Chloride 100 mmol/L (98-107); Estimated CRCL calculation 52 ml/min; Estimated Glomerular Filt Rate > 60; Glucose 95 mg/dL (65-110); Lactic Acid Reflex 2.2 mmol/L (0.7-2.0); Lipase 62 U/L (23-300); Potassium 5.7 mmol/L (3.4-5.0); Sodium 136 mmol/L (137-145)
[2024-09-08] MEDS: LACTATED RINGERS 1,000 ML 999 ML IV CONT (19:15)
[2024-09-08 19:26] LABS: Band Neutrophils Percent 10 % (0-6); Lymphocytes Absolute Manual 0.36 K/mm3 (1.1-4.5); Monocytes Absolute Manual 0.46 K/mm3 (0.1-0.90); Monocytes Percent Manual 9 % (3-9); Neutrophils Absolute Manual 4.36 K/mm3 (1.7-7.2); Neutrophils Percent Manual 74 % (46-73); Platelet Estimate Adequate (Adequate); Schistocytes None Seen; Total Cells Counted 100
[2024-09-08 19:27] LABS: Anisocytosis 1+; Hypochromasia 1+
--- NOTE | 2024-09-08 19:29 | PC.NURSE ---
naa rockwellt to change tylenol from 325 to 650mg
--- NOTE | 2024-09-08 19:47 | PC.NURSE ---
2nd set of blood cultures obtained, rt hand. ajith label in bio bag with cultures to lab.
[2024-09-08] MEDS: LACTATED RINGERS 600 ML 999 ML IV CONT (20:04)
[2024-09-08] MEDS: ACETAMINOPHEN 650 MG SUPPOSITORY RECTAL (20:04)
[2024-09-08 21:02] LABS: Add Urine Microscopic? YES; Appearance Urine Turbid (Clear); Bacteria Urine 4+ /hpf; Bilirubin Urine Negative (Negative); Blood Urine 3+ (Negative); Color Urine Dark Yellow (Yellow); Glucose Urine UA Negative (Negative); Ketones Urine Negative (Negative); Leukocyte Esterase Ur 3+ LEU/UL (Negative); Need Manual Microscopic Reviewed; Nitrate Urine Negative (Negative); Non Pathogenic Casts >20; Protein Urine 2+ mg/dL (Negative); RBC Urine >100 /hpf (0-2); Specific Grav Ur 1.013 (1.001-1.035); Squamous Epithelial Cell Urine Many /hpf (Few); Urobilinogen Urine 0.2 mg/dL (<2.0); WBC Urine >100 /hpf (0-3)
[2024-09-08 22:00] LABS: Reflex Lactic Acid Yes or No Add Lactic
[2024-09-08] MEDS: MEROPENEM 1 GM/NS 100 ML 1 GM/100 ML BAG IVPB (22:52)
--- NOTE | 2024-09-08 23:23 | PC.NURSE ---
transfer center updated rn to rn. Transfer center informed this rn that it would be a minimum of multiple days to weeks and that we should consider admitting her inpatient and they would do an inpt to inpt transfer.
[2024-09-08] MEDS: VANCOMYCIN 1,250 MG/NS 250 ML 1,250 MG/250 ML BAG 166.67 MG IVPB (23:29)
[2024-09-09] VITALS (29 sets, daily range): BP systolic 92–166; BP diastolic 47–94; PULSE 76–100; RESP 13–21; TEMP 36.2–37.5; O2SAT 95–100
[2024-09-09 00:42] LABS: MRSA (PCR) DETECTED (NOT DETECTE)
[2024-09-09] MEDS: LACTATED RINGERS 1,000 ML 125 ML IV CONT ×2 (03:44→07:45)
--- NOTE | 2024-09-09 03:45 | PC.NURSE ---
pt entire upper back is macerated, and flaking off when pt was rolled and placed in hospital bed. Pt has maceration to both butt cheeks and open wound to left hip area with active bleeding. Pt remains in bilateral foot boots with pillow between knee. brie see called to room for assessment of wounds and will place wound consult. cream applied to entire back side.
[2024-09-09 09:14] LABS: Lactic Acid 2.5 mmol/L (0.7-2.0)
[2024-09-09 09:16] LABS: Estimated CRCL calculation 59 ml/min; Estimated Glomerular Filt Rate > 60
[2024-09-09] MEDS: LACTATED RINGERS 1,000 ML 30 ML IV CONT (16:45)
[2024-09-09 17:34] LABS: Basophils Percent Auto 0.3 % (0.2-1.2); Eosinophils Absolute Auto 0.2 K/mm3 (0-0.3); Eosinophils Percent Auto 2.6 % (0-4.4); Hematocrit 35.2 % (37.0-47.0); Hemoglobin 11.2 g/dL (12.0-15.0); Immature Granulocyte Absolute 0.04 K/mm3 (0.00-0.031); Immature Granulocyte Percent A 0.4 % (0-0.5); Immature Platelet Fraction Pct 3.5 % (0.9-11.2); Lymphocytes Percent Auto 5.4 % (18.3-44.2); Mean Corpuscular HGB Conc 31.8 g/dl (32-36); Mean Corpuscular Hemoglobin 29.6 pg (26-34); Mean Corpuscular Volume 93.1 fl (80-100); Mean Platelet Volume 10.3 fl (7.4-10.4); Monocytes Absolute Auto 1.2 K/mm3 (0.1-0.6); Monocytes Percent Auto 12.8 % (2.6-8.5); Neutrophils Absolute Auto 7.2 K/mm3 (1.3-6.7); Neutrophils Percent Auto 78.5 % (45.5-73.1); Platelet Count Result 144 k/mm3 (150-375); Red Blood Count 3.78 M/mm3 (4.2-5.4); Red Cell Distribution Width 15.1 % (11.5-14.5); White Blood Count 9.2 K/mm3 (4.5-10.0)
[2024-09-09 17:43] LABS: Lactic Acid Reflex 0.7 mmol/L (0.7-2.0)
[2024-09-09 17:47] LABS: Alanine Aminotransferase 31 U/L (6-35); Albumin Level 3.3 g/dL (3.5-5.1); Alkaline Phosphatase 115 U/L (38-126); Anion Gap 2 mmol/L (4-12); Aspartate Amino Transferase 37 U/L (14-36); Bilirubin,Total 0.7 mg/dL (0.2-1.3); Blood Urea Nitrogen 25 mg/dL (7-17); Calcium 8.9 mg/dL (8.4-10.2); Carbon Dioxide 32 mmol/L (22-30); Chloride 99 mmol/L (98-107); Estimated CRCL calculation 68 ml/min; Estimated Glomerular Filt Rate > 60; Glucose 116 mg/dL (65-110); Potassium 4.6 mmol/L (3.4-5.0); Sodium 133 mmol/L (137-145)
[2024-09-09] MEDS: LACOSAMIDE (*CRX) 50 MG TABLET PO (18:29)
[2024-09-09] MEDS: BACLOFEN 10 MG TABLET PO ×2 (18:29→21:41)
== END 2024-09-09 22:30 | disposition short-term general hospital (02) ==
PROVIDERS: Emergency Medicine; Emergency Provider Physician Assistant; PCP Internal Medicine
DX: A41.9 Sepsis, unspecified organism (principal); R41.82 Altered mental status, unspecified; N12 Tubulo-interstitial nephritis, not specified as acute or chronic; M86.9 Osteomyelitis, unspecified; G35 Multiple sclerosis; Z74.01 Bed confinement status; Z93.1 Gastrostomy status; N10 Acute pyelonephritis; R00.0 Tachycardia, unspecified; R94.31 Abnormal electrocardiogram [ECG] [EKG]; R91.8 Other nonspecific abnormal finding of lung field; N30.90 Cystitis, unspecified without hematuria; N13.4 Hydroureter; N13.30 Unspecified hydronephrosis; R90.82 White matter disease, unspecified
CPT/HCPCS: 36415; 70450; 71045; 74177; 80053; 81001; 82565; 83605; 83690; 85025; 85055; 85610; 85730; 86140; 87040; 87077; 87086; 87186; 87641; 93005; 96361; 96365; 96367; 99285; A9270; J0696; J2185; J3370; J7120; Q9967

== ENCOUNTER 2024-12-14 17:04 | Inpatient (IN) | payer MEDICARE, SELFPAY ==
[2024-12-14] VITALS (13 sets, daily range): BP systolic 120–178; BP diastolic 68–98; PULSE 110–119; RESP 24–27; TEMP 37.2–38.7; O2SAT 93–99
--- NOTE | ~2024-12-14 | XR_ITS ---
Portable chest x-ray Comparison: 12/19/2024 Clinical History: Pneumonia Findings: There is probable left lower lobe and right upper lobe scarring, stable from prior exam. S table hazy airspace consolidation right lung base. Small right pleural effusion. Cardiomediastinal s ilhouette is stable. Bones and soft tissues are unremarkable. Impression: Small right pleural effusion with hazy right basilar airspace disease. Correlate for pneumonia. Probable areas of chronic scarring at the right upper lobe and left lower lobe. Reviewed, dictated and finalized at location . AL HEALTH WORKER Impression: Small right pleural effusion with hazy right basilar airspace disease. Correlat e for pneumonia. Probable areas of chronic scarring at the right upper lobe and left lower lobe.
--- NOTE | ~2024-12-14 | XR_ITS ---
XR chest 1V portable Ordering provider: Joey Reeves MD History: 64 years Female with . Aspiration pneumonia . Comparison: December 16, 2024 FINDINGS: MEDIASTINUM: The cardiac silhouette is slightly enlarged. Increased density in the right hilar area w hich may be atelectasis versus pneumonia versus lymphadenopathy. A mass cannot be excluded. Follow-up advised. LUNGS: No effusions or pneumothorax. Opacification in the left lung base suggestive of atelectasis ve rsus pneumonia. Minimal opacification in the right lung base suggestive of atelectasis versus pneumon ia. OTHER: No free air under the diaphragm. IMPRESSION: Bibasilar atelectasis versus pneumonia. No change from previous examination. Increased density in the right hilar area. Further evaluation advised. Reviewed, dictated and finalized at location A. ALL STRIPPER HELPER
--- NOTE | ~2024-12-14 | CT_ITS ---
EXAMINATION: CT chest abdomen pelvis w con DATE: 12/14/2024 20:01 INDICATION: Suspected pneumonia, abdominal tenderness . TECHNIQUE: Computed tomography (CT) of the chest, abdomen, and pelvis was performed with 100 mL Omnip aque-350 intravenous contrast. Automated exposure control and iterative reconstruction technique were employed. The dose-length product was 780.29 mGy-cm. COMPARISON: X-ray chest, same date; CT abdomen pelvis 09/08/2024 FINDINGS: CHEST: Thoracic aorta: No significant dilation. No dissection. Lung parenchyma and airways: Multisegment, bilateral dependent consolidation with surrounding tree-in -bud opacities. No pneumothorax. Airway fluid and debris. Thoracic inlet, axillae and chest wall: 12 mm left thyroid nodule which requires no additional evalua tion at this time. No axillary lymphadenopathy. Mediastinum: Patulous esophagus with fluid. Heart and pericardium: Normal heart size. No pericardial effusion. Coronary artery calcifications: Absent. Pleura: Small right pleural effusion. Thoracic bones: No acute osseous finding in the chest. ABDOMEN/PELVIS: Liver: Simple appearing liver cysts. Biliary/Gallbladder: Gallbladder is normal. No bile duct dilation. Pancreas: No mass or duct dilation. Spleen: Normal. Adrenals:No mass. Kidneys: Right renal atrophy. Nonobstructing right renal calcifications. Left renal cysts and hypoden sities that are too small to characterize but most likely represent cysts. Focal areas of left cortic al scarring. No hydronephrosis. GI tract: No small bowel dilation. The rectum is dilated to 9.0 cm by formed stool, with mild wall th ickening but no significant surrounding inflammatory change. Dilated, mostly air-filled sigmoid colon , the remainder of the large bowel is decompressed. Large volume of colonic fecal material. G-tube, i n good position. Appendix not confidently visualized. Mesentery/Peritoneum: No ascites, mass, or free air. Retroperitoneum: No mass Pelvis: The urinary bladder is decompressed by Nichols catheter. There is moderate urinary bladder wall edema and surrounding inflammatory change. Soft Tissues: Subcutaneous stranding extending from the skin surface to the bilateral ischial tuberos ities. Abdominopelvic bones: No acute osseous finding in the abdomen/pelvis. Chronic erosion of the right p ubic symphysis. IMPRESSION: Bilateral aspiration pneumonia. Fecal impaction, with mild wall thickening and dilation of the sigmoid colon. Early stercoral colitis is not excluded. Likely cystitis. Chronic right pubic symphysis osteomyelitis. Possible bilateral ishcial decubitus ulcers. Reviewed, dictated and finalized at location K. MAKER MACHINE IMPRESSION: Bilateral aspiration pneumonia. Fecal impaction, with mild wall thickening and dilation of the sigmoid colon. E radha stercoral colitis is not excluded. Likely cystitis. Chronic right pubic symphysis osteomyelitis. Possible bilateral ishcial decubitus ulcers.
--- NOTE | ~2024-12-14 | XR_ITS ---
EXAMINATION: XR abdomen/kub 1V DATE: 12/20/2024 14:39 INDICATION: Bowel obstruction. TECHNIQUE: A supine view of the abdomen on 2 radiographs was obtained. COMPARISON: CT 12/14/2024 FINDINGS: There are airspace opacities in right mid and lower lung zones and left lower lung zone. Th ere is a gastrostomy tube in expected position. The lower abdomen is excluded. The colon is distended . IMPRESSION: 1. Distended colon, likely adynamic ileus. 2. Airspace opacities in right mid and lower lung zones and left lower lung zone, consistent with pne umonia. Reviewed, dictated and finalized at location A. MICS TEST ENGINEER IMPRESSION: 1. Distended colon, likely adynamic ileus. 2. Airspace opacities in right mid and lower lung zones and left lower lung zon e, consistent with pneumonia.
--- NOTE | ~2024-12-14 | XR_ITS ---
EXAMINATION: XR chest 1V portable Exam Date/Time: 12/14/2024 18:00 COMMERCIAL PRODUCTION EDITOR HISTORY: sob, hypoxia Comparison: 09/08/2024, 05/03/2011; CT abdomen pelvis 09/08/2024. RESULT: Lines, tubes, and devices: None. Lungs and pleura: Segmental airspace disease in the medial left lung base. Right upper lung scar. Tr iangular groundglass opacity in the right lower lung, with an adjacent, peripheral bulla or other air collection. Linear right medial basilar opacity likely representing scar or discoid atelectasis. Min imal right lateral costophrenic angle blunting. Cardiomediastinal silhouette: Stable. Other: No acute osseous or upper abdominal finding. IMPRESSION: Subsegmental airspace disease and/or scarring in the right lower lung with a small adjacent bulla or loculated pneumothorax. Segmental left medial basal atelectasis/consolidation. Possible small right pleural effusion versus chronic pleural blunting. Reviewed, dictated and finalized at location K. ERCIAL PRODUCTION EDITOR IMPRESSION: Subsegmental airspace disease and/or scarring in the right lower lung with a sm all adjacent bulla or loculated pneumothorax. Segmental left medial basal atelectasis/consolidation. Possible small right pleural effusion versus chronic pleural blunting.
--- NOTE | ~2024-12-14 | XR_ITS ---
XR chest 1V portable Ordering provider: Joey Reeves MD History: 64 years Female with . Hypoxia . Comparison: December 14, 2024 FINDINGS: MEDIASTINUM: The cardiac silhouette is not enlarged. Congestive bin. LUNGS: No effusions or pneumothorax. Bibasilar opacification suggestive of pneumonia unchanged from p revious examination. Minimal opacification the right upper lobe area. Underlying emphysematous changes. OTHER: No free air under the diaphragm. IMPRESSION: Bilateral pneumonia unchanged from previous examination. Reviewed, dictated and finalized at location A. SCRUB TECH
--- NOTE | ~2024-12-14 | XR_ITS ---
EXAMINATION: XR abdomen obstructive series DATE: 12/17/2024 16:44 INDICATION: Abdominal pain. Fecal impaction. TECHNIQUE: Upright and supine views of the abdomen were obtained. COMPARISON: None. FINDINGS: There is a large volume of stool in the colon. The rectum is distended. There is a gastrost toya tube in expected position. No free intraperitoneal gas. There are airspace opacities in the lower lung zones. IMPRESSION: 1. Large volume of stool in the colon with distention of the rectum. 2. Airspace opacities in the lower lung zones, consistent with pneumonia. Reviewed, dictated and finalized at location A. ROOM ATTENDANT
--- NOTE | ~2024-12-14 | XR_ITS ---
EXAMINATION: XR chest 1V portable DATE: 12/18/2024 06:10 INDICATION: Respiratory failure TECHNIQUE: frontal view of the chest was obtained. COMPARISON: Chest radiograph dated 07/17/25 FINDINGS: Persistent volume loss in right hemithorax with rightward shift of the heart and mediastinum. Unchang ed no pneumothorax. Opacities in the right mid to lower lung zone and in the left lower lung zone. He art size is normal. Percutaneous gastrostomy tube projecting over the left upper quadrant. IMPRESSION: 1. Unchanged opacities in the mid and lower and left lower lung zones consistent with pneumonia. Reviewed, dictated and finalized at location A. MAINTENANCE TECHNICIAN IMPRESSION: 1. Unchanged opacities in the mid and lower and left lower lung zones consisten t with pneumonia.
--- NOTE | ~2024-12-14 | XR_ITS ---
Portable chest x-ray Comparison: 12/18/2024 Clinical History: Aspiration pneumonia Findings: Right basilar consolidation is present with additional patchy airspace disease right upper lobe. There is mild patchy airspace disease left lung base. Cardiomediastinal silhouette is stable. Bones and soft tissues are unremarkable. Impression: Patchy bilateral airspace disease, worse the right lung base, unchanged from prior exam. Findings sug gest bilateral pneumonia. Reviewed, dictated and finalized at location M. ING ASSOCIATE Impression: Patchy bilateral airspace disease, worse the right lung base, unchanged from pr ior exam. Findings suggest bilateral pneumonia.
--- NOTE | 2024-12-14 17:16 | ECG_ITS ---
Test Date: 2024-12-14 17:24:22 Measurements Intervals [place] Rate: 110 P: 51 ME: 207 QRS: 17 QRSD: 94 T: 70 QT: 287 QTc: 389 Interpretive Statements SINUS TACHYCARDIA INCOMPLETE RIGHT BUNDLE BRANCH BLOCK BORDERLINE ST-T WAVE ABNORMALITY- ANTEROLATERAL LEADS BASELINE ARTIFACT- I, II, III, AVR, AVL, AVF, V1-V6 ABNORMAL ECG Compared to ECG 09/08/2024 19:25:57 NO SIGNIFICANT CHANGE Electronically Signed On 12-14-2024 18:30:27 INSURANCE MARKETING REP by Jasbir Albright D.O.
[2024-12-14 17:43] LABS: Basophils Percent Auto 0.3 % (0.2-1.2); Eosinophils Percent Auto 0.2 % (0-4.4); Hematocrit 41.6 % (37.0-47.0); Hemoglobin 13.3 g/dL (12.0-15.0); Immature Granulocyte Absolute 0.06 K/mm3 (0.00-0.031); Immature Granulocyte Percent A 0.4 % (0-0.5); Lymphocytes Absolute Auto 0.65 K/mm3 (0.9-3.2); Lymphocytes Percent Auto 4.5 % (18.3-44.2); Mean Corpuscular Volume 87.6 fl (80-100); Mean Platelet Volume 9.6 fl (7.4-10.4); Monocytes Absolute Auto 1.5 K/mm3 (0.1-0.6); Neutrophils Absolute Auto 12.2 K/mm3 (1.3-6.7); Neutrophils Percent Auto 84.6 % (45.5-73.1); Platelet Count Result 449 k/mm3 (150-375); Red Blood Count 4.75 M/mm3 (4.2-5.4); Red Cell Distribution Width 14.7 % (11.5-14.5); White Blood Count 14.5 K/mm3 (4.5-10.0)
[2024-12-14 17:52] LABS: Lactic Acid Reflex 1.1 mmol/L (0.7-2.0)
[2024-12-14 17:53] LABS: Alanine Aminotransferase 49 U/L (6-35); Albumin Level 3.9 g/dL (3.5-5.1); Alkaline Phosphatase 200 U/L (38-126); Anion Gap 9 mmol/L (4-12); Aspartate Amino Transferase 45 U/L (14-36); Bilirubin,Total 0.8 mg/dL (0.2-1.3); Blood Urea Nitrogen 19 mg/dL (7-17); Calcium 9.5 mg/dL (8.4-10.2); Carbon Dioxide 26 mmol/L (22-30); Chloride 95 mmol/L (98-107); Estimated Glomerular Filt Rate > 60; Glucose 111 mg/dL (65-110); Potassium 4.8 mmol/L (3.4-5.0); Sodium 130 mmol/L (137-145)
[2024-12-14] MEDS: ACETAMINOPHEN 500 MG TABLET 1000 MG PO (19:24)
--- NOTE | 2024-12-14 19:29 | ED.GENADULT ---
HPI - General Adult General Chief complaint: Shortness of Breath/Dyspnea Stated complaint: SOB with DX of PNA Time Seen by Provider: 12/14/24 19:01 History of Present Illness HPI narrative: 64 at female history of MS presented to the emergency department for evaluation for fever and increased shortness of breath. Family states that the patient began having some ?rattling sounds ?in her chest on November 27 the patient has not been evaluated until today. They stated it was not until today when the patient began having increased shortness of breath and started having a fever. Patient is at home and has also evaluated by home health. Related Data Home Medications ?Medication ?Instructions ?Recorded ?Confirmed ?Last Taken ?Type amantadine HCl 100 mg capsule 100 mg PO BID 09/09/24 12/14/24 Unknown History baclofen 10 mg tablet 10 mg PO .COMPLEX 09/09/24 12/15/24 Unknown History carbamazepine 100 mg chewable 100 mg PO .COMPLEX 09/09/24 12/15/24 Unknown History tablet duloxetine 60 mg capsule,delayed 60 mg PO AC 09/09/24 12/14/24 Unknown History release lacosamide 50 mg tablet (Vimpat) 50 mg PO BID 09/09/24 12/14/24 Unknown History polyethylene glycol 3350 17 gram 17 g feeding tube QAM PRN 09/09/24 12/15/24 Unknown History oral powder packet (Miralax) constipation trospium 20 mg tablet 20 mg PO QAM 09/09/24 12/14/24 Unknown History Allergies Allergy/AdvReac Type Severity Reaction Status Date / Time ibuprofen Allergy Unknown Unknown Verified 09/08/24 18:34 Sulfa (Sulfonamide Allergy Hives Verified 09/08/24 18:34 Antibiotics) Review of Systems Review of Systems: All systems reviewed & are unremarkable except as noted in HPI and below PMFSH Social History Social History Smoking status: Never smoker Alcohol intake: never Substance use: never Substance use type: does not use Spiritual care concerns: No Exam Narrative: APPEARANCE: Ill-appearing HEAD: normocephalic, atraumatic. EYES: PERRLA/EOMI, conjunctivae clear. NOSE: Normal no drainage EARS:TMS clear with good light reflex. THROAT: Pharynx clear, no exudate. NECK: Supple. No adenopathy, no masses. RESPIRATORY: Congestive looked sounds bilaterally CARDIOVASCULAR: Regular rate and rhythm without murmurs rubs or gallops. ABDOMINAL: G-tube intact with mild abdominal distension with no tenderness to palpation MUSCULOSKELETAL: Moves all extremities. Strength/ROM intact, No edema, No calf tenderness. NEURO: Alert. Cranial nerves II through XII intact. Good gait. Good coordination SKIN: Warm, dry. Normal Color Course Vital Signs Vital signs: Vital Signs Temperature 101.7 F H 12/14/24 17:08 Pulse Rate 113 H 12/14/24 17:08 Respiratory Rate 24 H 12/14/24 17:08 Blood Pressure 164/93 H 12/14/24 17:08 Pulse Oximetry 93 12/14/24 17:08 Oxygen Delivery Nasal Cannula 12/14/24 17:08 Oxygen Flow Rate 3 12/14/24 17:08 Temperature 98.1 F 12/15/24 00:00 Pulse Rate 88 12/15/24 00:00 Respiratory Rate 25 H 12/15/24 00:00 Blood Pressure 128/70 12/15/24 00:00 Pulse Oximetry 100 12/15/24 00:00 Oxygen Delivery Nasal Cannula 12/14/24 17:20 Oxygen Flow Rate 3 12/14/24 17:20 Medical Decision Making [facility] Narrative Medical decision making narrative: 64-year-old female history of MS present to the emergency department for evaluation for increased shortness of breath and fevers. Patient was treated with Tylenol in the emergency department. Patient did receive 30 mils per kg of IV fluids, patient does have a leukocytosis of 14.5 a stable hemoglobin of 13.3. Patient did have elevated AST ALT and alk phos but these are not new findings. Patient does have CRP of 23.8. Patient was negative for influenza RSV and for COVID. CT chest abdomen pelvis was ordered and was concerning for aspiration pneumonia. Patient was started on Zosyn the emergency department and blood cultures were ordered. Case discussed with hospitalist patient was accepted for admission. Differential Diagnosis Differential Diagnosis: COVID, RSV, influenza a, pneumonia, aspiration pneumonia, urinary tract infection Vital Signs Vital Signs: Vital Signs Temperature 101.7 F H 12/14/24 17:08 Pulse Rate 113 H 12/14/24 17:08 Respiratory Rate 24 H 12/14/24 17:08 Blood Pressure 164/93 H 12/14/24 17:08 Pulse Oximetry 93 12/14/24 17:08 Oxygen Delivery Nasal Cannula 12/14/24 17:08 Oxygen Flow Rate 3 12/14/24 17:08 Temperature 98.1 F 12/15/24 00:00 Pulse Rate 88 12/15/24 00:00 Respiratory Rate 25 H 12/15/24 00:00 Blood Pressure 128/70 12/15/24 00:00 Pulse Oximetry 100 12/15/24 00:00 Oxygen Delivery Nasal Cannula 12/14/24 17:20 Oxygen Flow Rate 3 12/14/24 17:20 Lab Data Lab results reviewed: Yes I reviewed the patient's lab results. 12/14/24 17:36 12/14/24 17:36 Labs: Lab Results 12/14/24 12/14/24 Range/Units 17:36 20:13 WBC 14.5 H (4.5-10.0) K/mm3 RBC 4.75 (4.2-5.4) M/mm3 Hgb 13.3 (12.0-15.0) g/dL Hct 41.6 (37.0-47.0) % MCV 87.6 (80-100) fl MCH 28.0 (26-34) pg MCHC 32.0 (32-36) g/dl RDW 14.7 H (11.5-14.5) % Plt Count 449 H D (150-375) k/mm3 MPV 9.6 (7.4-10.4) fl Immature Gran % (Auto) 0.4 (0-0.5) % Neut % (Auto) 84.6 H (45.5-73.1) % Lymph % (Auto) 4.5 L (18.3-44.2) % [place] % (Auto) 10.0 H (2.6-8.5) % Eos % (Auto) 0.2 (0-4.4) % Baso % (Auto) 0.3 (0.2-1.2) % Lymph # (Auto) 0.65 L (0.9-3.2) K/mm3 [place] # (Auto) 1.5 H (0.1-0.6) K/mm3 Eos # (Auto) 0.0 (0-0.3) K/mm3 Baso # (Auto) 0.0 (0.0-0.1) K/mm3 Abs Immat Gran (auto) 0.06 H (0.00-0.031) K/mm3 Absolute Neuts (auto) 12.2 H (1.3-6.7) K/mm3 Absolute Nucleated RBC 0.000 (0.0-0.012) K/mm3 Nucleated RBC % 0.0 (0.0-0.2) % Sodium 130 L (137-145) mmol/L Potassium 4.8 (3.4-5.0) mmol/L Chloride 95 L (98-107) mmol/L Carbon Dioxide 26 (22-30) mmol/L Anion Gap 9 (4-12) mmol/L BUN 19 H (7-17) mg/dL Creatinine 0.42 L (0.7-1.0) mg/dL Estim Creat Clear Calc Not Reportable Estimated GFR > 60 (59 - ) Glucose 111 H (65-110) mg/dL Lactic Acid 1.1 (0.7-2.0) mmol/L Calcium 9.5 (8.4-10.2) mg/dL Total Bilirubin 0.8 (0.2-1.3) mg/dL AST 45 H (14-36) U/L ALT 49 H (6-35) U/L Alkaline Phosphatase 200 H (38-126) U/L C-Reactive Protein 23.8 H (<1.0) mg/dL Total Protein 8.0 (6.3-8.2) g/dL Albumin 3.9 (3.5-5.1) g/dL Influenza A (RT-PCR) Negative (Negative) Influenza B (RT-PCR) Negative (Negative) RSV (RT-PCR) Negative (Negative) SARS-CoV-2 RNA (RT-PCR) Negative (Negative) Imaging Data Radiologist's impression: Impressions Chest X-Ray 12/14/24 18:29 IMPRESSION: Subsegmental airspace disease and/or scarring in the right lower lung with a small adjacent bulla or loculated pneumothorax. Segmental left medial basal atelectasis/consolidation. Possible small right pleural effusion versus chronic pleural blunting. Chest/Abdomen/Pelvis CT 12/14/24 20:14 IMPRESSION: Bilateral aspiration pneumonia. Fecal impaction, with mild wall thickening and dilation of the sigmoid colon. Early stercoral colitis is not excluded. Likely cystitis. Chronic right pubic symphysis osteomyelitis. Possible bilateral ishcial decubitus ulcers. Discharge Plan Discharge Clinical Impression: Aspiration pneumonia Patient Disposition: Still a Patient Condition: Serious
--- OUTSIDE RECORDS SUMMARY | 2024-12-14 19:41 | XMS_ITS | Encounter Summary ---
Author Organization [facility] Address [address] [place] [address] Care Team Providers Care Automotive Consultant Name Role Phone Paul Stoner MD Primary Care Provider + Encounter Details Date Type Department Care Team (Late st Contact Info) Description 09/25/2006 Outpatient Historical [facility] Neurology [place] [address] [place] [phone] Domenico Hickman MD NO ADDRESS ON FILE Social History Tobacco Use Types Packs/Day Years Used Date Smoking Tobacco: Never Assessed Comments Unknown Sex and Gender Information Value Date Recorded Sex Assigned at Not on file 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
--- OUTSIDE RECORDS SUMMARY | 2024-12-14 19:41 | XMS_ITS | Encounter Summary ---
Author Organization [facility] Address [address] [place] [address] Care Team Providers Care Locum Tenens Psychiatrist Name Role Phone Paul Campbell MD Primary Care Provider + Encounter Details Date Type Department Care Team (Latest Contact Info) Description 04/19/2008 Outpatient Historical [facility] Robert Izquierdo MD NO ADDRESS ON FILE Multiple Sclerosis ([facility]) Social History Tobacco Use Types Packs/Day Years Used Date Smoking Tobacco: Never Assessed Comments Unknown Sex and Gender Information Value Date Recorded Sex Assigned at Not on file Legal 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 Gender Identity Not on file Sexual Orientation Not on file documented as of this encounter Plan of Treatment Not on file documented as of this encounter Procedures Procedure Name Priority Date/Time Associated Diagnosis Comments URINALYSIS WITH REFLEX CULTURE Routine 04/19/2008 1:50 PM CDT CBC WITH DIFFERENTIAL Routine 04/19/2008 1:50 PM CDT URINALYSIS W/REFLEX MICROSCOPIC Routine 04/19/2008 1:50 PM CDT URINE CULTURE Routine 04/19/2008 1:50 PM CDT XR CHEST PA AND LATERAL 2 VW Routine 04/19/2008 1:30 PM CDT documented in this encounter Results * URINE CULTURE (04/19/2008 1:50 PM CDT) PRELIMINARY REPORT Pending [facility] FINAL REPORT Polymicrobial growth present consistent with urethral ole and/or colonizing bacteria. [facility] 04/19/2008 1:50 PM CDT 04/19/2008 4:56 PM CDT Robert Will MD MICROBIOLOGY - GENERAL ORDERABLE S Final Result [facility] CLIA# [id number] [address] [place] [address] * (ABNORMAL) URINALYSIS (04/19/2008 1:50 PM CDT) BILIRUBIN UA Negative Negative [facility] PROTEIN UA 1+(A) Negative [facility] EPITHELIAL CELLS, URINE Many /HPF [facility] LEUKOCYTE ESTERASE UA 2+(A) Negative [facility] RBC UA 47(H) 0 - 4 /HPF [facility] SPECIFIC GRAVITY UA 1.021 1.001 - 1.035 [facility] GLUCOSE UA Negative Negative [facility] BLOOD UA 3+(A) Negative [facility] COLOR UA Yellow [facility] NITRITE UA Negative Negative [facility] BACTERIA UA 3+(A) None Seen /HPF [facility] UROBILINOGEN UA <1 <=1 mg/dL [facility] PH UA 5.5 5.0 - 8.0 [facility] WBC UA 39(H) 0 - 5 /HPF [facility] KETONES UA Negative Negative [facility] CLARITY UA Cloudy(A) Clear [facility] 04/19/2008 1:50 PM CDT 04/19/2008 4:06 PM CDT Robert Will MD URINE ORDERABLES Final Result [facility] CLIA# [id number] [address] [place] [address] * (ABNORMAL) CBC WITH DIFFERENTIAL (04/19/2008 1:50 PM CDT) HEMOGLOBIN 14.0 11.8 - 14.8 g/dL [facility] RDW 12.5 11.5 - 14.5 % [facility] WBC 5.9 4.0 - 9.8 K/uL [facility] MCH 28.6 27.2 - 32.6 pg [facility] MPV 10.8 9.3 - 12.4 fL [facility] HEMATOCRIT 44.1(H) 35.5 - 44.0 % [facility] RDW-STDEV 40.6 37.1 - 48.7 fL [facility] RBC 4.90 3.90 - 4.90 M/uL [facility] MCHC 31.7 31.5 - 35.5 % [facility] MCV 90.0 82.0 - 99.0 fL [facility] PLATELETS 225 140 - 350 K/uL [facility] EOSINOPHILS 3 0 - 7 % [facility] EOSINOPHIL ABSOLUTE 0.18 0.00 - 0.70 K/uL [facility] LYMPHOCYTES 36 16 - 45 % [facility] LYMPHOCYTE ABSOLUTE 2.09 0.70 - 4.50 K/uL [facility] BASOPHILS 1 0 - 2 % [facility] BASOPHILS ABSOLUTE 0.07 0.00 - 0.20 K/uL [facility] MONOCYTES 12 3 - 13 % [facility] MONOCYTE ABSOLUTE 0.72 0.10 - 1.30 K/uL [facility] NEUTROPHILS 48 45 - 70 % [facility] NEUTROPHIL ABSOLUTE 2.83 1.90 - 7.00 K/uL [facility] Blood specimen (specimen) 04/19/2008 1:50 PM CDT 04/19/2008 2:12 PM CDT Robert Will MD HEMATOLOGY ORDERABLES Edited Performing Organization Address [facility] de Phone Number INTERFACE SYSTEM Refer to clinic/hospital department [facility] CLIA# [id number] [address] [place] [address] * URINALYSIS WITH REFLEX CULTURE (04/19/2008 1:50 PM CDT) URINE CULTURE ORDER Culture ordered [facility] Comment: Criteria for a reflex culture include one or more of the following: Abnormal nitrite, leukocyte esterase, WBCs or RBCs. Lack of qualifying criteria does not exclude the possiblity of a urinary tract infection. Dilute urine, drug interference, etc. may decrease the sensitivity of the criteria analytes. Urine specimen (specimen) 04/19/2008 1:50 PM CDT 04/19/2008 4:06 PM CDT Robert Will MD URINE ORDERABLES Final Result Performing Organization Address [facility] de Phone Number [facility] CLIA# [id number] [address] [place] [address] * XR CHEST PA AND LATERAL (04/19/2008 1:30 PM CDT) Anatomical Region Laterality Modality Chest Other 04/19/2008 1:30 PM CDT Narrative 04/20/2008 8:16 AM CDT [facility] [address] [place], [place] [address] Admit Date: 04/19/2008 DONITA MENDEZ Sex: F Admit Prov: ROBERT WILL Date: 1960 Primary Care Prov: PAUL CAMPBELL CMRN: [id number] [facility] N: [id number] IMAGING SERVICES Ordering Prov: N/A Accession Number: [id number] Interpretation Exam: Chest x-ray PA and lateral. 04/19/2008 History: Atherosclerosis. Respiratory symptoms. Heart and mediastinum are unremarkable. The lungs are clear. Dextroscoliosis is seen in the thoracic spine. Impression: Dextroscoliosis. No acute cardiopulmonary abnormality. . Dictated by: DANIEL PETERSON 04/19/2008 13:49 Electronically signed by: DANIEL PETERSON 04/20/2008 08:15 Transcribed: 04/19/2008 22:25 AMK Procedure Note Daniel Peterson 04/20/[address] [address] Admit Date: 04/19/2008 DONITA MENDEZ Sex: F Admit Prov: ROBERT WILL Date: 1960 Primary Care Prov: PAUL CAMPBELL CMRN: [id number] Room: [facility] SSN: [id number] IMAGING SERVICES Ordering Prov: N/A Interpretation Exam: Chest x-ray PA and lateral. 04/19/2008 History: Atherosclerosis. Respiratory symptoms. Heart and mediastinum are unremarkable. The lungs are clear. Dextroscoliosis is seen in the thoracic spine. Impression: Dextroscoliosis. No acute cardiopulmonary abnormality. . Dictated by: DANIEL PETERSON 04/19/2008 13:49 Electronically signed by: DANIEL PETERSON 04/20/2008 08:15 Transcribed: 04/19/2008 22:25 AMK Robert Will MD DIAGNOSTIC IMAGING ORDERABLES Fi nal Result documented in this encounter Visit Diagnoses Diagnosis Multiple sclerosis (CMS/HCC) Multiple sclerosis documented in this encounter Care Teams Locum Tenens Psychiatrist Relationship Specialty Start Date End Date Paul Campbell MD [address] [place] [phone] PCP - General 09/25/06 09/14/24 documented as of this encounter
--- OUTSIDE RECORDS SUMMARY | 2024-12-14 19:41 | XMS_ITS | Clinical Summary ---
Author Organization Unknown Care Team Providers Care Trapeze Performer Name Role Phone JOSEFINARAMSEY GRAMAJO Unavailable Unavailable [facility] Unavailable Unavailable Payers Payer Name Policy Type Policy Number Effective Date Expira tion Date MEDICARE [place] - EPISODIC [id number] Problems Condition Name Condition Details Condition Category Status Onset Date Resolution Date Last Treatment Date Treating Clinician Comments ENCOUNTER FOR FITTING AND ADJUSTMENT OF URINARY DEVICE Active 11-12 00:00: 00 MULTIPLE SCLEROSIS Active 10-20 00:00: 00 DEGENERATIVE DISEASE OF NERVOUS SYSTEM, UNSPECIFIED Active 10-20 00:00: 00 QUADRIPLEGIA , UNSPECIFIED Active 10-20 00:00: 00 MODERATE PROTEIN-JAMIL DYAN MALNUTRITION Active 10-20 00:00: 00 CONSTIPATION , UNSPECIFIED Active 10-20 00:00: 00 ORTHOSTATIC HYPOTENSION Active 10-20 00:00: 00 HYPERLIPIDEM IA, UNSPECIFIED Active 10-20 00:00: 00 ANXIETY DISORDER, UNSPECIFIED Active 10-20 00:00: 00 DEPRESSION, UNSPECIFIED Active 10-20 00:00: 00 AGE-RELATED OSTEOPOROSIS W/O CURRENT PATHOLOGICAL FRACTURE Active 10-20 00:00: 00 DYSPHAGIA, OROPHARYNGEA L PHASE Active 10-20 00:00: 00 GASTROSTOMY STATUS Active 10-20 00:00: 00 ENCOUNTER FOR ADJUSTMENT AND MANAGEMENT OF VAD Active 10-20 00:00: 00 HISTORY OF FALLING Active 10-20 00:00: 00 Allergies, Adverse Reactions, Alerts Allergy Name Allergy Type Status Severity Reaction(s) Onset Date Inactive Date Treating Clinician Comments FLU VACCINE Propensity to adverse reactions Active 2023-10 10:05: 17 A*SULFA ANTIBIOTICS Propensity to adverse reactions Active 2023-10 10:05: 07 Medications Ordered Medication Name Filled Medication Name Start Date Stop Date Current Medication? Ordering Clinician Indication Dosage Frequency Signature (SIG) Comments Components amantadine HCl 100 mg capsule 01-20 00:00: 00 09-17 23:59 :00 No [id number] TREMORS 1 capsule TWICE DAILY 1 capsule TWICE DAILY (route: oral) Alternate Route: BY MOUTH. Med Classific ation: Central Nervous System Agents baclofen 10 mg tablet 05-07 00:00: 00 11-05 23:59 :00 No [id number] MUSCLE SPASMS 1 tablet 5 TIMES DAILY 1 tablet 5 TIMES DAILY (route: oral) Alternate Route: PO. Med Classific ation: Locomotor System carbamazepi ne 100 mg chewable tablet 12-09 00:00: 00 09-17 23:59 :00 No [id number] SEIZURE PREVENTION. 1 tablet 4 TIMES DAILY 1 tablet 4 TIMES DAILY (route: oral) Med Classific ation: Central Nervous System Agents Dulcolax (bisacodyl) 10 mg rectal suppository 02-15 00:00: 00 Yes [id number] CONSTIPATIO N 1 supposi tory, rectal NEEDED 1 suppositor y, rectal NEEDED (route: rectal) Med Classific ation: Gastroint estinal Therapy Agents duloxetine 60 mg capsule,del ayed release 04-17 00:00: 00 09-17 23:59 :00 No [id number] DEPRESSION 1 capsule ONCE DAILY 1 capsule ONCE DAILY (route: oral) Alternate Route: BY MOUTH. Med Classific ation: Central Nervous System Agents ibandronate 150 mg tablet 04-17 00:00: 00 01-30 23:59 :00 No MS/ BONE HEALTH 1 tablet ONCE AMONTH 1 tablet ONCE AMONTH (route: oral) Alternate Route: BY MOUTH. Med Classific ation: Endocrine lactulose 10 gram/15 mL oral solution 06-06 00:00: 00 10-06 23:59 :00 No CONSTIPATIO N 15 mL DAILY 15 mL DAILY (route: oral) Med Classific ation: Gastroint estinal Therapy Agents medroxyprog esterone 10 mg tablet 06-06 00:00: 00 08-14 23:59 :00 No HORMONE IMBALANCE 1 tablet DAILY 1 tablet DAILY (route: oral) Med Classific ation: Endocrine sodium chloride 0.9 % irrigation solution 06-06 00:00: 00 09-17 23:59 :00 No [id number] CATHETER PATENCY 30 mL DAILY 30 mL DAILY (route: irrigation ) Med Classific ation: Electroly te Balance-N utritiona Graph [employer] Toviaz 4 mg tablet,exte nded release 06-15 00:00: 00 10-06 23:59 :00 No BLADDER SPASMS 1 tablet DAILY 1 tablet DAILY (route: oral) Med Classific ation: Genitouri nary Therapy Vimpat 50 mg tablet 04-09 00:00: 00 09-17 23:59 :00 No [id number] SEIZURES 1 tablet 2 X DAY 1 tablet 2 X DAY (route: oral) Med Classific ation: Central Nervous System Agents vitamin A and D topical ointment 02-20 00:00: 00 09-17 23:59 :00 No [id number] PROTECTION Per instruc tions 2_4 TIMES DAY Per instructio ns 2_4 TIMES DAY (route: topical) Med Classific ation: Dermatolo gical Vitamin D3 125 mcg (5,000 unit) tablet 01-20 00:00: 00 11-13 23:59 :00 No [id number] VITAMIN D DEFIENCY 1 tablet 4 x per week 1 tablet 4 x per week (route: oral) Alternate Route: by mouth. Med Classific ation: Electroly te Balance-N utrAkademosa Graph [employer] Zinc-Oxyde Plus 0.44 %-20 % topical ointment 02-20 00:00: 00 09-17 23:59 :00 No [id number] PROTECTION Per instruc tions 2 TIMES DAILY Per instructio ns 2 TIMES DAILY (route: topical) Med Classific ation: Dermatolo gical Tylenol Extra Strength 500 mg tablet 02-15 00:00: 00 11-05 23:59 :00 No [id number] PAIN 500 mg every 6 hours as needed 500 mg every 6 hours as needed (route: oral) Med Classific ation: Analgesic , Anti-infl ammatory or Antipyret ic ciprofloxac in 500 mg tablet 2019-10 00:00: 00 08-13 23:59 :00 No UTI 1 tablet 2 TIMES DAILY 1 tablet 2 TIMES DAILY (route: oral) Alternate Route: BY MOUTH. Med Classific ation: Anti-Infe ctive Agents Calcium 500 500 mg calcium (1,250 mg) chewable tablet 2019-10 00:00: 00 11-13 23:59 :00 No [id number] SUPPLEMENT 1 tablet ONCE DAILY 1 tablet ONCE DAILY (route: oral) Med Classific ation: Electroly te Balance-N utritiona l Products trospium 20 mg tablet 2019-10 00:00: 00 09-14 23:59 :00 No [id number] OVERACTIVE BLADDER 1 tablet ONCE DAILY 1 tablet ONCE DAILY (route: oral) Med Classific ation: Genitouri nary Therapy Cipro 500 mg tablet 12-06 00:00: 00 12-06 23:59 :00 No UTI 1 tablet TWICE DAILY 1 tablet TWICE DAILY (route: oral) Med Classific ation: Anti-Infe ctive Agents ciprofloxac in 500 mg tablet 02-04 00:00: 00 02-04 23:59 :00 No UTI 1 tablet TWICE DAILY 1 tablet TWICE DAILY (route: oral) Med Classific ation: Anti-Infe ctive Agents clonazepam 0.5 mg tablet 02-04 00:00: 00 02-04 23:59 :00 No SEIZURE 1 tablet TWICE DAILY 1 tablet TWICE DAILY (route: oral) Med Classific ation: Central Nervous System Agents cranberry 500 mg capsule 02-02 00:00: 00 11-13 23:59 :00 No [id number] SUPPLEMENT 1 capsule TWICE DAILY 1 capsule TWICE DAILY (route: oral) Med Classific ation: Alternati ve Therapy Vitamin C 500 mg tablet 02-02 00:00: 00 11-13 23:59 :00 No [id number] SUPPLEMENT 1 tablet ONCE DAILY 1 tablet ONCE DAILY (route: oral) Med Classific ation: Electroly te Balance-N utritiona l Products meclizine 25 mg tablet 03-12 00:00: 00 09-17 23:59 :00 No [id number] MOTION SICKNESS 1 tablet 3 TIMES DAILY 1 tablet 3 TIMES DAILY (route: oral) Med Classific ation: Gastroint estinal Therapy Agents ibandronate 150 mg tablet 2020-10 00:00: 00 09-17 23:59 :00 No [id number] BONE HEALTH 1 tablet MONTHLY 1 tablet MONTHLY (route: oral) Med Classific ation: Endocrine zolpidem 5 mg tablet 2020-10 00:00: 00 09-17 23:59 :00 No [id number] SLEEP 0.5 tablet BEDTIME 0.5 tablet BEDTIME (route: oral) Med Classific ation: Central Nervous System Agents trospium 20 mg tablet 2020-10 00:00: 00 09-17 23:59 :00 No [id number] BLADDER SPASMS 1 tablet 2 TIMES DAILY 1 tablet 2 TIMES DAILY (route: oral) Med Classific ation: Genitouri nary Therapy Cipro 250 mg tablet 2020-10 00:00: 00 10-09 23:59 :00 No UTI 1 tablet TWICE DAILY 1 tablet TWICE DAILY (route: oral) Med Classific ation: Anti-Infe ctive Agents ciprofloxac in 500 mg tablet 2021-10 00:00: 00 08-27 23:59 :00 No [id number] POST OP. PERCUTANEOU S NEPHROLITHO BATSHEVA FOR STAGHORN CALCULUS RIGHT KIDNEY 1 tablet TWICE DAILY 1 tablet TWICE DAILY (route: oral) Med Classific ation: Anti-Infe ctive Agents Miralax 17 gram/dose oral powder 2022-10 0 00:00: 00 Yes [id number] CONSTIPATIO N 17 gram ONCE DAILY 17 gram ONCE DAILY (route: oral) Med Classific ation: Gastroint estinal Therapy Agents Acetaminoph en Extra Strength 500 mg tablet 11-05 00:00: 00 11-05 23:59 :00 No [id number] PAIN 1 tablet EVERY 6 HOURS 1 tablet EVERY 6 HOURS (route: oral) Alternate Route: BY MOUTH. Med Classific ation: Analgesic , Anti-infl ammatory or Antipyret ic baclofen 5 mg tablet 11-05 00:00: 00 11-24 23:59 :00 No [id number] MUSCLE SPASMS 1 tablet 4 TIMES DAILY 1 tablet 4 TIMES DAILY (route: oral) Med Classific ation: Locomotor System Jevity 1.5 William 0.06 gram-1.5 kcal/mL oral liquid 11-05 00:00: 00 Yes [id number] NUTRITION 270 mL 4 TIMES DAILY 270 mL 4 TIMES DAILY (route: oral) Alternate Route: G-TUBE. Med Classific ation: Electroly te Balance-N utritiona l Products Mouth Kote [place] 11-05 00:00: 00 09-17 23:59 :00 No [id number] DRY MOUTH 2 spray 4 TIMES DAILY 2 spray 4 TIMES DAILY (route: mucous membrane) Med Classific ation: Mouth-Thr oat-Denta l - Preparati ons baclofen 10 mg tablet 11-24 00:00: 00 09-17 23:59 :00 No [id number] MUSCLE SPASMS 1 tablet DIRECTED 1 tablet DIRECTED (route: oral) Alternate Route: G-TUBE. Med Classific ation: Locomotor System fluconazole 200 mg tablet 01-19 00:00: 00 09-17 23:59 :00 No [id number] ANTIFUNGAL 1 tablet DAILY 1 tablet DAILY (route: oral) Med Classific ation: Anti-Infe ctive Agents cephalexin 250 mg/5 mL oral suspension 01-15 00:00: 00 01-22 23:59 :00 No FUNGAL RASH 5 mL EVERY 12 HOURS 5 mL EVERY 12 HOURS (route: oral) Alternate Route: G-TUBE. Med Classific ation: Anti-Infe ctive Agents amantadine HCl 100 mg tablet 2023-10 00:00: 00 Yes TREMORS 1 tablet 2 TIMES DAILY 1 tablet 2 TIMES DAILY (route: oral) Alternate Route: G-TUBE. Med Classific ation: Central Nervous System Agents baclofen 10 mg tablet 2023-10 00:00: 00 Yes MUSCLE SPASMS 1 tablet DIRECTED 1 tablet DIRECTED (route: oral) Alternate Route: G-TUBE. Med Classific ation: Locomotor System carbamazepi ne ER 100 mg capsule,ext ended release [id number] 2023-10 00:00: 00 Yes SEIZURE PREVENTION 1 capsule 4 TIMES DAILY 1 capsule 4 TIMES DAILY (route: oral) Alternate Route: G-TUBE. Med Classific ation: Central Nervous System Agents duloxetine 60 mg capsule,del ayed release 2023-10 00:00: 00 Yes DEPRESSION 1 capsule DAILY 1 capsule DAILY (route: oral) Alternate Route: G-TUBE. Med Classific ation: Central Nervous System Agents Heparin Lock Flush (Porcine) (PF) 10 unit/mL intravenous syringe 2023-10 00:00: 00 11-12 23:59 :00 No IV MAINTENANCE Per instruc tions DIRECTED Per instructio ns DIRECTED (route: intravenou s) Med Classific ation: Hematolog ical Agents ibandronate 150 mg tablet 2023-10 00:00: 00 Yes BONE HEALTH 1 tablet MONTHLY 1 tablet MONTHLY (route: oral) Alternate Route: G-TUBE. Med Classific ation: Endocrine meclizine 25 mg tablet 2023-10 00:00: 00 Yes MOTION SICKNESS 1 tablet 3 TIMES DAILY 1 tablet 3 TIMES DAILY (route: oral) Alternate Route: G-TUBE. Med Classific ation: Gastroint estinal Therapy Agents Normal Saline Flush 0.9 % injection syringe 2023-10 00:00: 00 11-12 23:59 :00 No IV MAINTANANCE Per instruc tions DIRECTED Per instructio ns DIRECTED (route: injection) Med Classific ation: Electroly te Balance-N utritiona l Products Senna Lax 8.6 mg tablet 2023-10 00:00: 00 Yes CONSTIPATIO N 1 tablet 2 TIMES DAILY 1 tablet 2 TIMES DAILY (route: oral) Alternate Route: G-TUBE. Med Classific ation: Gastroint estinal Therapy Agents trospium 20 mg tablet 2023-10 00:00: 00 Yes BLADDER SPASMS 1 tablet 2 TIMES DAILY 1 tablet 2 TIMES DAILY (route: oral) Alternate Route: G-TUBE. Med Classific ation: Genitouri nary Therapy Vimpat 50 mg tablet 2023-10 00:00: 00 Yes SEIZURES 1 tablet 2 TIMES DAILY 1 tablet 2 TIMES DAILY (route: oral) Alternate Route: G-TUBE. Med Classific ation: Central Nervous System Agents zolpidem 5 mg tablet 2023-10 00:00: 00 Yes SLEEP 0.5 tablet BEDTIME 0.5 tablet BEDTIME (route: oral) Alternate Route: G-TUBE. Med Classific ation: Central Nervous System Agents ceftriaxone 2 gram solution for injection 2023-10 00:00: 00 11-12 23:59 :00 No INFECTION 2 g DAILY 2 g DAILY (route: injection) Med Classific ation: Anti-Infe ctive Agents Immunizations Ordered Immunization Name Filled Immunization Name Date Status Comments Refusal Reason INFLUENZA MEDICALLY CONTRAINDICATED, N/A 2024-09-18 00:00:00 PNEUMOCOCCAL - DISCUSSED AND DECLINED, PPV 2024-09-18 00:00:00 Vital Signs Vital Name Observation Time Observation Value Commen ts Temperature 2024-12-06 15:18:00.000 98.2 [degF] Temperature 2024-12-03 08:45:00.000 97.2 [degF] Temperature 2024-11-17 09:36:00.000 98.4 [degF] Pulse 2024-12-06 15:18:00.000 64 /min Pulse 2024-12-03 08:45:00.000 90 /min Pulse 2024-11-17 09:36:00.000 93 /min O2 Saturation (%) 2024-12-06 15:18:00.000 98 % O2 Saturation (%) 2024-12-03 08:45:00.000 97 % O2 Saturation (%) 2024-11-17 09:36:00.000 97 % Respirations 2024-12-06 15:18:00.000 18 /min Respirations 2024-12-03 08:45:00.000 18 /min Respirations 2024-11-17 09:36:00.000 18 /min Systolic Blood Pressure 2024-12-06 15:18:00.000 124 mm [Hg] Systolic Blood Pressure 2024-12-03 08:45:00.000 124 mm [Hg] Systolic Blood Pressure 2024-11-17 09:36:00.000 120 mm [Hg] Diastolic Blood Pressure 2024-12-06 15:18:00.000 62 mm [Hg] Diastolic Blood Pressure 2024-12-03 08:45:00.000 72 mm [Hg] Diastolic Blood Pressure 2024-11-17 09:36:00.000 72 mm [Hg] Plan of Treatment Planned Activity Planned Date Details Comments Future Scheduled Test THE CER TIFYING PHYSICIAN, ASSOCIATED PHYSICIAN, NPP OR PA WITHIN THE SAME GROUP MAY APPROVE AND SIGN THE ORDER (ON ANY PAGE) ATTESTING THAT THE COMPREHENSIVE OUTCOME ASSESSMENTS, EVALUATIONS, AND HOME HEALTH CERTIFICATION PLANS SUPPORT HOMEBOUND STATUS. HOME HEALTH WEB-PORTAL DOCUMENTATION ACCESSED BY THE PHYSICIAN MUST BE INCORPORATED INTO THE MEDICAL RECORD TO CORROBORATE THE PHYSICIAN, NPP, OR PAS F2F ENCOUNTER TO SUPPORT ELIGIBILITY FOR HOME HEALTH SERVICES. [code = THE CERTIFYING PHYSICIAN, ASSOCIATED PHYSICIAN, NPP OR PA WITHIN THE SAME GROUP MAY APPROVE AND SIGN THE ORDER (ON ANY PAGE) ATTESTING THAT THE COMPREHENSIVE OUTCOME ASSESSMENTS, EVALUATIONS, AND HOME HEALTH CERTIFICATION PLANS SUPPORT HOMEBOUND STATUS. HOME HEALTH WEB-PORTAL DOCUMENTATION ACCESSED BY THE PHYSICIAN MUST BE INCORPORATED INTO THE MEDICAL RECORD TO CORROBORATE THE PHYSICIAN, NPP, OR PAS F2F ENCOUNTER TO SUPPORT ELIGIBILITY FOR HOME HEALTH SERVICES.] Future Scheduled Test EACH ORDER ED IN-HOME OR TELEHEALTH VISIT, THE SKILLED NURSE WILL CONDUCT A COMPREHENSIVE ASSESSMENT INCLUDING VITAL SIGNS, PAIN, SAFETY, MENTAL/COGNITIVE/PSYCHOSOCIAL STATUS, MED MANAGEMENT, NUTRITION, SKIN INTEGRITY, PRESSURE ULCER PREVENTION, AND PATIENT/CAREGIVER ABILITY TO SUPPORT ORDERED CARE. SKILLED NURSE WILL INSTRUCT ON DISEASE PROCESS, MED MGMT., FALL PREVENTION AND SAFETY, INFECTION CONTROL AND PREVENTION, WARNING SIGNS, ADDRESS RESULTS OUTSIDE OF ORDERED PARAMETERS LISTED ON CARE PLAN, AND COORDINATE DISCHARGE WITH THE TREATING PROVIDER. MAY ACCEPT ORDERS FROM THE FOLLOWING PROVIDER(S) WHO WILL BE CONSULTING ON THE CERTIFIED CARE PLAN: DR. ROCHA, DR. JOSLYN KNUTSON [code = EACH ORDERED IN-HOME OR TELEHEALTH VISIT, THE SKILLED NURSE WILL CONDUCT A COMPREHENSIVE ASSESSMENT INCLUDING VITAL SIGNS, PAIN, SAFETY, MENTAL/COGNITIVE/PSYCHOSOCIAL STATUS, MED MANAGEMENT, NUTRITION, SKIN INTEGRITY, PRESSURE ULCER PREVENTION, AND PATIENT/CAREGIVER ABILITY TO SUPPORT ORDERED CARE. SKILLED NURSE WILL INSTRUCT ON DISEASE PROCESS, MED MGMT., FALL PREVENTION AND SAFETY, INFECTION CONTROL AND PREVENTION, WARNING SIGNS, ADDRESS RESULTS OUTSIDE OF ORDERED PARAMETERS LISTED ON CARE PLAN, AND COORDINATE DISCHARGE WITH THE TREATING PROVIDER. MAY ACCEPT ORDERS FROM THE FOLLOWING PROVIDER(S) WHO WILL BE CONSULTING ON THE CERTIFIED CARE PLAN: DR. ROCHA, DR. JOSLYN KNUTSON ] Future Scheduled Test SKILLED NU RSE TO CHANGE INDWELLING COOPER URINARY CATHETER ON 11/12/24 AND THEN EVERY 3 WEEKS PER STERILE TECHNIQUE. COOPER CATHETER IS TO BE A 24 BRITISH 30ML/CC BALLOON CATHETER. INSERT CATHETER USING A STERILE INSERTION TRAY. ORDERS ALSO INCLUDE THE NEED FOR MONTHLY MAINTANANCE ITEMS, INCLUDING LEG BAGS, DRAIN BAGS, LEG STRAPS, AND SECUREMENT DEVICES WELL 10 CC SYRINGES. SKILLED NURSE MAY ADD TWO PRN VISITS PER MONTH FOR CARE OR COMPLICATIONS SUCH IRRIGATION NEEDS, LEAKING, OR ACCIDENTAL DISLOGDEMENT. SKILLED NURSE MAY OBTAIN URINALYSIS PRN FOR SIGNS AND SYMPTOMS OF URINARY TRACT INFECTION WITH RESULTS FAXED TO PHYSICIAN. SKILLED NURSE MAY CHANGE OR REPLACE CATHETER NEEDED WHEN COMPLICATIONS OCCUR. ALL FOLLOWING CATHETER CHANGES WILL MAINTAIN ORDERED FREQUENCY. MAY FLUSH OR IRRIGATE PRN WITH 30 ? 60 ML STERILE WATER FOR OCCLUSION OR STOPPAGE. SN MAY OBTAIN UA WITH CULTURE AND SENSITIVITY FOR SIGNS OR SYMPTOMS OF A UTI. CATHETER MAY BE FLUSHED ON AN NEEDED BASIS FOR CLOGGED CATHETER. CLEANSE JUNCTION OF CATHETER TUBE AND DRAINAGE TUBE WITH ALCOHOL WIPE, DISCONNECT CATHETER FROM DRAINAGE TUBE AND CAP WITH STERILE CAP. USING A 60 ML SYRINGE, DRAW UP 30-40 ML NORMAL SALINE OR STERILE WATER AND GENTLY INSTILL INTO THE BLADDER. DISCONNECT SYRINGE AND ALLOW FLUID TO DRAIN INTO BASIN. MAY REPEAT IRRIGATION UNTIL DEBRIS IS CLEAR. WHEN FLUSHING IS COMPLETE, CLEANSE THE END OF THE CATHETER AND THE END OF THE TUBING WITH AN ALCOHOL WIPE AFTER REMOVING THE PROTECTIVE CAP. RECONNECT THE CATHETER AND TUBING. PATIENT/CAREGIVER MAY PERFORM IRRIGATION/FLUSHING PRN IN SKILLED NURSE ABSENCE AFTER APPROPRIATE RETURN DEMONSTRATION. [code = SKILLED NURSE TO CHANGE INDWELLING COOPER URINARY CATHETER ON 11/12/24 AND THEN EVERY 3 WEEKS PER STERILE TECHNIQUE. COOPER CATHETER IS TO BE A 24 BRITISH 30ML/CC BALLOON CATHETER. INSERT CATHETER USING A STERILE INSERTION TRAY. ORDERS ALSO INCLUDE THE NEED FOR MONTHLY MAINTANANCE ITEMS, INCLUDING LEG BAGS, DRAIN BAGS, LEG STRAPS, AND SECUREMENT DEVICES WELL 10 CC SYRINGES. SKILLED NURSE MAY ADD TWO PRN VISITS PER MONTH FOR CARE OR COMPLICATIONS SUCH IRRIGATION NEEDS, LEAKING, OR ACCIDENTAL DISLOGDEMENT. SKILLED NURSE MAY OBTAIN URINALYSIS PRN FOR SIGNS AND SYMPTOMS OF URINARY TRACT INFECTION WITH RESULTS FAXED TO PHYSICIAN. SKILLED NURSE MAY CHANGE OR REPLACE CATHETER NEEDED WHEN COMPLICATIONS OCCUR. ALL FOLLOWING CATHETER CHANGES WILL MAINTAIN ORDERED FREQUENCY. MAY FLUSH OR IRRIGATE PRN WITH 30 ? 60 ML STERILE WATER FOR OCCLUSION OR STOPPAGE. SN MAY OBTAIN UA WITH CULTURE AND SENSITIVITY FOR SIGNS OR SYMPTOMS OF A UTI. CATHETER MAY BE FLUSHED ON AN NEEDED BASIS FOR CLOGGED CATHETER. CLEANSE JUNCTION OF CATHETER TUBE AND DRAINAGE TUBE WITH ALCOHOL WIPE, DISCONNECT CATHETER FROM DRAINAGE TUBE AND CAP WITH STERILE CAP. USING A 60 ML SYRINGE, DRAW UP 30-40 ML NORMAL SALINE OR STERILE WATER AND GENTLY INSTILL INTO THE BLADDER. DISCONNECT SYRINGE AND ALLOW FLUID TO DRAIN INTO BASIN. MAY REPEAT IRRIGATION UNTIL DEBRIS IS CLEAR. WHEN FLUSHING IS COMPLETE, CLEANSE THE END OF THE CATHETER AND THE END OF THE TUBING WITH AN ALCOHOL WIPE AFTER REMOVING THE PROTECTIVE CAP. RECONNECT THE CATHETER AND TUBING. PATIENT/CAREGIVER MAY PERFORM IRRIGATION/FLUSHING PRN IN SKILLED NURSE ABSENCE AFTER APPROPRIATE RETURN DEMONSTRATION.] Future Scheduled Test SKILLED NU RSE TO EDUCATE ON GASTROSTOMY MANAGEMENT INCLUDING CARE OF SITE, EQUIPMENT, AND PREPARATION/ADMINISTRATION OF FEEDINGS AND FLUSHING. FOR SITE CARE: SKILLED NURSE TO PERFORM/INSTRUCT PATIENT/CAREGIVER ON CARE. REMOVE OLD DRESSING PER CLEAN TECHNIQUE. CLEANSE WITH NORMAL SALINE OR WOUND CLEANSER OR SOAP AND WATER. PAT DRY WITH GAUZE OR ALLOW TO AIR DRY. APPLY NEW DRAIN SPONGE AND SECURE WITH TAPE. DRESSING TO BE CHANGED EVERY 2-3 DAYS AND PRN FOR SOILAGE OR DISLODGEMENT. SKILLED NURSE TO ADMINISTER JEVITY 1.5 270ML VIA BOLUS, 4 TIMES DAILY. FLUSH TUBE WITH 60-200ML OF WATER AFTER TUBE FEEDINGS AND MEDICATION ADMINISTRATION. PATIENT/CAREGIVER TO PERFORM FEEDING/FLUSHING/SITE CARE IN NURSE ABSENCE AFTER APPROPRIATE RETURN DEMONSTRATION. [code = SKILLED NURSE TO EDUCATE ON GASTROSTOMY MANAGEMENT INCLUDING CARE OF SITE, EQUIPMENT, AND PREPARATION/ADMINISTRATION OF FEEDINGS AND FLUSHING. FOR SITE CARE: SKILLED NURSE TO PERFORM/INSTRUCT PATIENT/CAREGIVER ON CARE. REMOVE OLD DRESSING PER CLEAN TECHNIQUE. CLEANSE WITH NORMAL SALINE OR WOUND CLEANSER OR SOAP AND WATER. PAT DRY WITH GAUZE OR ALLOW TO AIR DRY. APPLY NEW DRAIN SPONGE AND SECURE WITH TAPE. DRESSING TO BE CHANGED EVERY 2-3 DAYS AND PRN FOR SOILAGE OR DISLODGEMENT. SKILLED NURSE TO ADMINISTER JEVITY 1.5 270ML VIA BOLUS, 4 TIMES DAILY. FLUSH TUBE WITH 60-200ML OF WATER AFTER TUBE FEEDINGS AND MEDICATION ADMINISTRATION. PATIENT/CAREGIVER TO PERFORM FEEDING/FLUSHING/SITE CARE IN NURSE ABSENCE AFTER APPROPRIATE RETURN DEMONSTRATION. ] Future Scheduled Test SKILLED NU RSE TO ASSESS PATIENT WITH ANXIETY DISORDER AND TEACH SYMPTOMS OF ANXIETY. [code = SKILLED NURSE TO ASSESS PATIENT WITH ANXIETY DISORDER AND TEACH SYMPTOMS OF ANXIETY.] Future Scheduled Test SKILLED NU RSE TO OBSERVE AND ASSESS PATIENT WITH GENERALIZED DEPRESSION AND TEACH DEPRESSIVE SYMPTOMS. [code = SKILLED NURSE TO OBSERVE AND ASSESS PATIENT WITH GENERALIZED DEPRESSION AND TEACH DEPRESSIVE SYMPTOMS.] Goal 2024-11-12 Patient Goal - S OC 09/18/24- TO GET RID OF INFECTION Goal Patient Goal - S OC 09/18/24- TO GET RID OF INFECTION RECERT- 11/12/24- NO ISSUES WITH COOPER Goal Provider Goal - A PLAN OF CARE WILL BE ESTABLISHED THAT MEETS ALL PATIENT'S GROUP HOME NEEDS AND COUNTER SIGNED BY PHYSICIAN. Goal Provider Goal - PATIENT WILL BE FREE OF FALLS AND HOSPITALIZATIONS THROUGHOUT EPISODE OF CARE. PATIENT/CAREGIVER WILL UNDERSTAND AND ADHERE TO ORDERED DIET. PATIENT/CAREGIVER WILL INDEPENDENTLY MANAGE MEDICATIONS, UNDERSTAND ANY CHANGES, SIDE EFFECTS TO REPORT BY DISCHARGE. PATIENT WILL BE FREE OF INFECTION AND UNDERSTAND MEASURES OF PREVENTION. PATIENT/CAREGIVER WILL COLLABORATE WITH SKILLED NURSE TO DEVELOP POC AT SOC AND ON AN ONGOING BASIS UPDATES ARE NEEDED. UNDERSTAND PROGRESS MADE/DISCHARGE PLANNING. ADDITIONAL ORDERS WILL BE RECEIVED FROM ALTERNATE PHYSICIANS IN A TIMELY MANNER. Goal Provider Goal - PATIENT WILL VERBALIZE TOLERANCE OF CATHETER CHANGE ON ONGOING BASIS OR UNTIL DISCHARGE. PATIENT/CAREGIVER DEMONSTRATES APPROPRIATE CATHETER MAINTENANCE AND FLUSHING. Goal Provider Goal - PATIENT/CAREGIVER WILL INDEPENDENTLY DEMONSTRATE THE ABILITY TO MANAGE CARE OF SITE, EQUIPMENT, AND FLUSHING. PATIENT/CAREGIVER WILL INDEPENDENTLY VERBALIZE SYMPTOMS TO REPORT TO THE PHYSICIAN BY END OF HOME HEALTH SERVICES. Goal Provider Goal - PATIENT/CAREGIVER WILL VERBALIZE UNDERSTANDING OF THE CONTRIBUTING FACTORS AND SYMPTOMS OF ANXIETY. Goal Provider Goal - PATIENT/CAREGIVER WILL VERBALIZE UNDERSTANDING OF THE CONTRIBUTING FACTORS AND SYMPTOMS OF DEPRESSION. Encounters Start Date/Time End Date/Time Encounter Type Admission Type Attending Clinicians Care Facility Care Department Encounter ID Discharge Date Discharge Status Discharge Condition Discharge Reason Percent Goals Met 2024-09-18 00:00:00 2025 00:00:00 [facility] [id number] 40.00
--- OUTSIDE RECORDS SUMMARY | 2024-12-14 19:41 | XMS_ITS | Encounter Summary ---
Author Organization [facility] Address [address] [place] [address] Care Team Providers Care Turbine Mechanic Name Role Phone Paul Stoner MD Primary Care Provider + Encounter Details Date Type Department Care Team (Late st Contact Info) Description 02/20/2007 Outpatient Historical [facility] [place] [facility] [id number] [facility] [address] [place] [id number] Domenico Hickman MD NO ADDRESS ON FILE Social History Tobacco Use Types Packs/Day Years Used Date Smoking Tobacco: Never Assessed Comments Unknown Sex and Gender Information Value Date Recorded Sex Assigned at Not on file Legal Sex Female 5:06 AM STUDENT [employer]OP[employer] DEAN Gender Identity Not on file Sexual Orientation Not on file documented as of this encounter Plan of Treatment Not on file documented as of this encounter Visit Diagnoses Not on filedocumented in this encounter Care Teams Turbine Mechanic Relationship Specialty Start Date End Date Paul Stoner MD [address] [place] [id number] PCP - General 09/25/06 09/14/24 documented as of this encounter
--- OUTSIDE RECORDS SUMMARY | 2024-12-14 19:41 | XMS_ITS | Referral Summary ---
Author Organization [facility] Address [address] [place] [address] Care Team Providers Care Die Forger Name Role Phone Eri Peña MD Primary Care Provider [phone] Kathrin Jones OT Unavailable [phone] Encounters Date Type Department Care Team Description 10/15/2024 Orders Only [facility] Multiple Sclerosis [address] [place] [phone] Ember Marcelino MD Seizures (HCC) 10/15/2024 Orders Only [facility] Multiple Sclerosis [address] [place] [address] [phone] Deborah Eubanks, RN 09/19/2024 Documentation [facility] Multiple Sclerosis [address] [place] [address] [phone] Ember Marcelino MD from Last 3 Months Allergies Active Allergy Reactions Criticality Noted Date Comments Sulfa (Sulfonamide Antibiotics) Itching,Swelling Medium 02/12/2019 Medications bisacodyl (DULCOLAX) 10 mg suppositoryIndica tions:constipatio n,only as needed for constipation Insert 1 suppository (10 mg total) into the rectum daily as needed Active acetaminophen (TYLENOL) 500 mg tablet Take 1 tablet (500 mg total) by mouth every 6 (six) hours as needed for pain. 08/19/20 18 Active meclizine (ANTIVERT) 25 mg tablet Take 1 tablet (25 mg total) by mouth 3 (three) times a day as needed for dizziness (before car rides) Active ibandronate (BONIVA) 150 mg tabletIndications :Post-Menopausal Osteoporosis Prevention Take 1 tablet (150 mg total) by mouth every 30 (thirty) days Take in AM with glass of water prior to food, don't lie down for 30 minutes. Active cholecalciferol (VITAMIN D-3) 5,000 unit tablet Take 1 tablet (5,000 Units total) by mouth every morning 4 times a week Active artificial saliva (MOUTH KOTE) aerosol,spray Apply 2 sprays (2 Applications total) to the mouth or throat 4 (four) times a day 59 mL 11/05/19 24 Active baclofen (LIORESAL) 10 mg tablet Take 1 tablet (10 mg total) by mouth 5 (five) times a day 150 tablet 5 11/24/19 24 Active trospium (SANCTURA) 20 mg tabletIndications :Bladder Hyperactivity Take 1 tablet (20 mg total) by mouth 2 (two) times a day 180 tablet 3 01/02/20 24 025 Active carBAMazepine (TEGretol) 100 mg chewable tablet Take 1 tablet (100 mg total) by mouth 4 (four) times a day 360 tablet 2 05/17/20 24 Active amantadine (SYMMETREL) 100 mg capsule TAKE 1 CAPSULE(100 MG) BY MOUTH TWICE DAILY 180 capsule 2 08/22/[address] (CYMBALTA) 60 mg capsuleIndication s:major depressive disorder Take 1 capsule (60 mg total) by mouth daily 90 capsule 1 10/01/20 24 025 Active Vimpat 50 mg tabletIndications :Seizures (HCC) Take 1 tablet (50 mg total) by mouth 2 (two) times a day 180 tablet 1 10/15/20 24 Active Active Problems Problem Noted Date Diagnosed Date Medication monitoring encounter 03/12/2024 PEG (percutaneous endoscopic gastrostomy) status (CMS/HCC) 03/12/2024 History of COVID-19 03/12/2024 On tube feeding diet 03/12/2024 Candidiasis to Perineum 11/03/2023 Assessment & Plan (11/03/2023 9:28 AM WATER PUMP INSTALLER): -Miconazole Powder TID x 7days Fever of unknown origin 10/21/2023 Overview (10/21/2023): Assessment & Plan (11/05/2023 12:35 PM WATER PUMP INSTALLER): Given increased O2 requirements and new fever (10/20/23) with increasing WBC despite 10 day course of cefe/flagyl, repeated infectious workup. RVP (positive COVID), UA negative, CT CAP with evolving multifocal pneumonia, likely with a component of aspiration; Bld and Ucx NGTD. CT sinus w/ left sphenoid and ethmoid opacification as well as mild mucosal thickening of b/l maxillary sinuses that is consistent w/ acute sinusitis. No osseous erosions were seen. - ID c/s, recommended empiric vancomycin and cefepime (complete) f/b 10 days of Augmentin (10/25-10/29) - Febrile on 10/29 to 100.1, repeat infectious workup sent. CXR with new consolidation, like aspiration pneumonia vs HAP. Ucx with sukhdev albicans. - Discussed with ID and started Ceftriaxone (10/29-) - Escalated antibiotics to Vanc/Cefe (10/31-) in setting of ongoing fevers and persistent tachycardia -10/31 Blood culture Staph Epidermidis x1 bottle; Negative x 1 bottle. - Last documented Tylenol 10/31) - Remains Afebrile Assessment & Plan (10/21/2023 6:26 PM WATER PUMP INSTALLER): A/P: Source of infection unclear, but favor recurrent aspiration pneumonia vs pneumonitis given multiple sclerosis and moderate oral pharyngeal dysfunction on FEES. Can also consider sinusitis from NG placement, as well as possible pancreatitis, although no pancreatic abnormalities on CT C/A/P. Patient presented initially with UTI, but favor that it has been adequately treated with patient's course of antibiotics and that her pyuria seems improved from baseline iso of chronic cath. Other considerations can be that fevers are from COVID, but this would be unusual for her to have persistent fevers for 10+ days. Patient has some wound on her back, but they do not appear infected -Continue vancomycin 750mg q12 hours and cefepime 2mg q12 hours. Please obtain vanc trough prior to 4th dose -Please discontinue metronidazole -Obtain CT sinus to rule out sinusitis -F/u blood cultures 10/20 -Please obtain pneumonia PCR from sputum sample if possible. If patient continues to fever, can consider BAL to obtain microbiological targets -Please obtain amylase/lipase Moderate protein-calorie malnutrition (CMS/HCC) 10/15/2023 Assessment & Plan (11/05/2023 12:35 PM WATER PUMP INSTALLER): RD and MEDICAL DEVICE ASSEMBLER following. Patient with Small bowel Tube and receiving TF per RD recommendations. 10/31 MEDICAL DEVICE ASSEMBLER Consulted with recommendations for Dysphagia 1 diet with nectar thick liquids for pleasure only. Ok to have Cymbalta with apple sauce. - 11/03 G-Tube placed, Tolerating TF and is now at goal 270mL. Free water Flush. - HHN placed. Bilateral pneumonia 10/12/2023 Assessment & Plan (11/05/2023 12:33 PM WATER PUMP INSTALLER): Patient initially admitted to OSH 10/05 with weakness and fever and was found to have pneumonia and UTI. She was transferred to [facility] 10/11. CXR c/f multifocal PNA vs aspiration. CT chest w/o PE, requiring 3L upon transfer to [facility]. Could be cardiac mediated given BNP 25.5k. She received an NG tube that she began to get all her meds from given her inability to swallow PO. The first NG fell out and was replaced. THe second went into her R. Mainstem bronchus and was removed. She was given a dobhoff through IR and resumed her tube feeds and PO (TF) medications. TTE ordered - EF 56%, no other overt findings though limited study - During admission noted to be COVID positive 10/20: Dexamethasone 6mg x10 days, Remdesivir 5x days completed - Empiric antibiotics as under fever (Vanc and Cefepime): Course Now Completed. (See Malnutrition-MEDICAL DEVICE ASSEMBLER) Large bowel obstruction (CMS/HCC) 10/11/2023 Assessment & Plan (11/05/2023 12:34 PM WATER PUMP INSTALLER): Diagnosed at OSH on CT, treated with conservative management and resolved prior to transfer. Currently tolerating tube feeds. - KUB in AM 10/24 showed multiple nondilated gas-filled loops of small and large bowel - Patient having regular Bms. 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 Assessment & Plan (03/01/2019 11:33 PM CDT): Secondary to recurrent urinary tract infections with decreased appetite and subjective weight loss-placed on supportive care -incentive spirometer -PT OT -aspiration precautions, fall precautions, seizure precautions -nutritional consult -full supportive care with diet, bathing, and dressing -out of bed to chair b.i.d. Multiple sclerosis 03/01/2019 Assessment & Plan (03/02/2019 10:34 AM CDT): Diagnosed age 27 complicated by memory impairment, quadriparesis with impaired mobility, neurogenic bladder -Per mother, has not had recurrent episode in quite a while. Has been off of medication for several years. -full assist Assessment & Plan (03/01/2019 11:36 PM CDT): Diagnosed age 27 complicated by memory impairment, quadriparesis with impaired mobility, neurogenic bladder -full assist -I have concerns given her frequent urinary tract infection and failure to thrive that she is a high risk patient and needs extra medical attention -consider discussion with family patient's values in wishes going forward- presently full care Cough 03/01/2019 Assessment & Plan (03/02/2019 10:35 AM CDT): Possibly viral bronchitis versus impaired clearance due to multiple sclerosis and failure to thrive -respiratory pathogen ordered-coronavirus + -incentive spirometer 10 times q.1 hour, mucinex BID -rotate patient q.2 hours and position with pillows -out of bed to chair b.i.d. Assessment & Plan (03/01/2019 11:37 PM CDT): Possibly viral bronchitis versus impaired clearance due to multiple sclerosis and failure to thrive -respiratory pathogen ordered -incentive spirometer 10 times q.1 hour -rotate patient q.2 hours and position with pillows -out of bed to chair b.i.d. Transaminitis 02/13/2019 Assessment & Plan (02/15/2019 9:38 AM CDT): - Patient with new transaminitis to AST/ALT 200-300s with elevation of ALP as well overnight - Discussed with inpatient pharmacy - several medications can cause liver injury such as amantaidine, carbamazepine, etc. But those are all home medications. - Only new medication here is cefepime which can cause transaminitis ~2-3% - Will switch cefepime to meropenem - Liver ultrasound and dopplers unremarkable. - LFTs downtrending. Assessment & Plan (02/14/2019 11:21 AM CDT): - Patient with new transaminitis to AST/ALT 200-300s with elevation of ALP as well overnight - Discussed with inpatient pharmacy - several medications can cause liver injury such as amantaidine, carbamazepine, etc. But those are all home medications. - Only new medication here is cefepime which can cause transaminitis ~2-3% - Will switch cefepime to meropenem - Liver ultrasound and dopplers unremarkable. - LFTs downtrending. Assessment & Plan (02/13/2019 11:06 AM CDT): - Patient with new transaminitis to AST/ALT 200-300s with elevation of ALP as well overnight - Discussed with inpatient pharmacy - several medications can cause liver injury such as amantaidine, carbamazepine, etc. But those are all home medications. - Only new medication here is cefepime which can cause transaminitis ~2-3% - Will switch cefepime to meropenem - Liver ultrasound + dopplers on Friday Cognitive dysfunction accompanying multiple scle rosis 02/12/2019 Assessment & Plan (02/15/2019 9:38 AM CDT): Pt initially documented to be sleepy and A&Ox1 and later was A&Ox2-3 on hospital day 2. Today was more somnolent and less oriented but easily arousable. Suspect due to complicated UTI vs missed amantadine dose after dosing changes (only supposed to take 9am and 12pm and not afterwards due to difficulty with sleep otherwise) vs less likely seizure (arousable but may be post-ictal) vs other tox/metabolic or medication. - BCX ngtd, low threshold for imaging and broadening abx. - Redosed amantadine to prior home dosing of 9am and 12pm. - Mental status improved. - Discussed sleep/wake cycle and delirium from hospitalization as contributors - seems to be improving, patient with good appetite and is awake, alert, and interactive on my evaluations. Assessment & Plan (02/14/2019 11:21 AM CDT): Pt initially documented to be sleepy and A&Ox1 and later was A&Ox2-3 on hospital day 2. Today was more somnolent and less oriented but easily arousable. Suspect due to complicated UTI vs missed amantadine dose after dosing changes (only supposed to take 9am and 12pm and not afterwards due to difficulty with sleep otherwise) vs less likely seizure (arousable but may be post-ictal) vs other tox/metabolic or medication. - BCX ngtd, low threshold for imaging and broadening abx. - Redosed amantadine to prior home dosing of 9am and 12pm. - Mental status improved. Assessment & Plan (02/13/2019 11:02 AM CDT): Pt initially documented to be sleepy and A&Ox1 and later was A&Ox2-3 on hospital day 2. Today was more somnolent and less oriented but easily arousable. Suspect due to complicated UTI vs missed amantadine dose after dosing changes (only supposed to take 9am and 12pm and not afterwards due to difficulty with sleep otherwise) vs less likely seizure (arousable but may be post-ictal) vs other tox/metabolic or medication. - Check BCx, low threshold for imaging and broadening abx. - Redosed amantadine to prior home dosing of 9am and 12pm (did not take second dose in the evening yesterday after missed 12pm time). - Mental status improved Assessment & Plan (02/12/2019 4:49 PM CDT): Pt initially documented to be sleepy and A&Ox1 and later was A&Ox2-3 on hospital day 2. Today was more somnolent and less oriented but easily arousable. Suspect due to complicated UTI vs missed amantadine dose after dosing changes (only supposed to take 9am and 12pm and not afterwards due to difficulty with sleep otherwise) vs less likely seizure (arousable but may be post-ictal) vs other tox/metabolic or medication. - Check BCx, low threshold for imaging and broadening abx. - Redosed amantadine to prior home dosing of 9am and 12pm (did not take second dose in the evening yesterday after missed 12pm time). Complicated UTI (urinary tract infection) 2018 Assessment & Plan (03/05/2019 9:54 AM CDT): Recurrent versus persistent pseudomonal UTI with chronic indwelling Obrien -Recent yeast infection s/p stunted course of Diflucan secondary to interactions with seizure medication. No yeast reported on repeat urine Cx -given cefepime in the emergency room with history of transaminitis->meropenem -s/p Obrien exchange w/ repeat UCx w/ insignificant growth -infectious disease consult for optimal antibiotic and duration of treatment- believe fever likely 2/2 coronavirus, treat UTI with fosfomycin and f/u with ID in clinic -s/p 3 days of meropenem Assessment & Plan (03/01/2019 11:33 PM CDT): Recurrent versus persistent pseudomonal UTI with chronic indwelling Obrien -urology consult to discuss redo suprapubic catheter and status of vesicular/vaginal fistula -will need Obrien exchanged -infectious disease consult for optimal antibiotic and duration of treatment -reportedly with recent yeast infection I hesitate to place her back on Diflucan secondary to interactions with seizure medication -given cefepime in the emergency room with history of transaminitis -placed on meropenem 500 mg IV piggyback q.6 hours -most likely will need a PICC line placement on discharge Assessment & Plan (02/15/2019 9:37 AM CDT): Mother noted increased frequency and cloudy, malodorous urine since January 21. Treated initially with PO abx. Recent urine culture from 02/04 at [facility] grew Pseudomonas resistant to cipro and levofloxacin, sensitive to cefe, zosyn and carbapenems. No systemic signs of infection--afebrile and normal WBC. Obrien exchanged in ED to upsized 20F (from 18F). May have systemic symptoms given encephalopathy but denies any pain otherwise. Risk factors include chronic Obrien and neurogenic bladder, no flank pain or other s/sx of pyelo. - S/p PICC placement 02/11 - Pt has outpatient follow up with Urology (Dr. Domínguez) 02/25, curbsided urology who noted no current interventions as inpatient. - Initially started on cefepime but now with new transaminitis - switched to meropenem 02/13 now downtrending. Assessment & Plan (02/14/2019 11:21 AM CDT): Mother noted increased frequency and cloudy, malodorous urine since January 21. Treated initially with PO abx. Recent urine culture from 02/04 at [facility] grew Pseudomonas resistant to cipro and levofloxacin, sensitive to cefe, zosyn and carbapenems. No systemic signs of infection--afebrile and normal WBC. Obrien exchanged in ED to upsized 20F (from 18F). May have systemic symptoms given encephalopathy but denies any pain otherwise. Risk factors include chronic Obrien and neurogenic bladder, no flank pain or other s/sx of pyelo. - S/p PICC placement 02/11 - BCx obtained given more somnolence and possible systemic symptpoms, remaining afebrile and hemodynamically without leukocytosis still. - Pt has outpatient follow up with Urology (Dr. Domínguez) 02/25, [facility] who noted no current interventions as inpatient. - Initially started on cefepime but now with new transaminitis - switched to meropenem 02/13. Assessment & Plan (02/13/2019 11:01 AM CDT): Mother noted increased frequency and cloudy, malodorous urine since January 21. Treated initially with PO abx. Recent urine culture from 02/04 at [facility] grew Pseudomonas resistant to cipro and levofloxacin, sensitive to cefe, zosyn and carbapenems. No systemic signs of infection--afebrile and normal WBC. Obrien exchanged in ED to upsized 20F (from 18F). May have systemic symptoms given encephalopathy but denies any pain otherwise. Risk factors include chronic Obrien and neurogenic bladder, no flank pain or other s/sx of pyelo. - Switch to cefe 2g q12h for easier dosing which has similar pharmacokinetic exposure as 1g q8h, s/p PICC placement 02/11. - BCx obtained given more somnolence and possible systemic symptpoms, remaining afebrile and hemodynamically without leukocytosis still. - Pt has outpatient follow up with Urology (Dr. Domínguez) 02/25, curbsided urology who noted no current interventions as inpatient. - Initially started on cefepime but now with new transaminitis - switched to meropenem 02/13. Assessment & Plan (02/12/2019 4:53 PM CDT): Mother noted increased frequency and cloudy, malodorous urine since January 21. Treated initially with PO abx. Recent urine culture from 02/04 at [facility] grew Pseudomonas resistant to cipro and levofloxacin, sensitive to cefe, zosyn and carbapenems. No systemic signs of infection--afebrile and normal WBC. Obrien exchanged in ED to upsized 20F (from 18F). May have systemic symptoms given encephalopathy but denies any pain otherwise. Risk factors include chronic Obrien and neurogenic bladder, no flank pain or other s/sx of pyelo. - Switch to cefe 2g q12h for easier dosing which has similar pharmacokinetic exposure as 1g q8h, s/p PICC placement 02/11. - BCx obtained given more somnolence and possible systemic symptpoms, remaining afebrile and hemodynamically without leukocytosis still. - Plan for 7-10 days of IV cefepime with outpatient follow up with PCP in that time frame for interval CBC and CMP. - Can consider further imaging if no change in mentation (for possibly head and/or A/P). - Pt has outpatient follow up with Urology (Dr. Domínguez) 02/25, curbsided urology who noted no current interventions as inpatient. Assessment & Plan (02/11/2019 6:29 PM CDT): Mother noted increased frequencyand cloud, malodorous urine since January 21. Treated initially with PO abx. Recent urine culture from 02/04 at [facility] grew Pseudomonas resistant to cipro and levofloxacin, sensitive to cefe, zosyn and carbapenems. No systemic signs of infection--afebrile and normal WBC. Obrien exchanged in ED to upsized 20F (from 18F). Low suspicion for systemic illness. Risk factors include chronic Obrien and neurogenic bladder, no flank pain or other s/sx of pyelo. - cont IV cefepime 1g q8h, likely can switch to 2g q12h at discharge for easier dosing which has similar pharmacokinetic exposure as 1g q8h, s/p PICC placement 02/11. - Plan for 7-10 days of IV cefepime with outpatient follow up with PCP in that time frame for interval CBC and CMP. Assessment & Plan (02/11/2019 6:05 AM CDT): Mother noted cloudy and malodorous urine since January 21. Treated initially with PO abx. Recent urine culture from 02/04 grew Pseudomonas resistant to cipro and levofloxacin, sensitive to cefe, zosyn and carbapenems. No systemic signs of infection--afebrile and normal WBC. Obrien exchanged in ED. - switch cefepime to anti-pseudomonal dosing - will likely need PICC line and home IV abx. Will defer PICC order to primary team. 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 And carbamazepine 100 mg q.i.d. Assessment & Plan (03/01/2019 11:35 PM CDT): These are new from March 2018 usually in the setting of urinary tract infection and appear to be petite mal seizures -she is placed on seizure precautions -continue lacosamide 50 mg b.i.d. And carbamazepine 100 mg q.i.d. Memory impairment 12/24/2016 Assessment & Plan (03/02/2019 10:34 AM CDT): This predate seizures and appears to be short term greater than long-term memory -she is not a reliable historian Assessment & Plan (03/01/2019 11:34 PM CDT): This predate seizures and appears to be short term greater than long-term memory -she is not a reliable historian -defer to Neurology in terms of supportive care Assessment & Plan (02/11/2019 6:06 AM CDT): AAOx1 (self). Suspect baseline. Constipation due to neurogenic bowel 04/04/2015 Assessment & Plan (03/04/2019 12:36 PM CDT): Has not had BM in 4 days, likely 2/2 immobility and not receiving lactulose Change lactulose from PRN to scheduled Dulcolax suppository Obrien catheter in place 05/10/2014 Overview (01/30/2018): Description: SPT placed 03/01/2014 Complications due to genitou rinary device, implant, and graft 05/10/2014 Quadriparesis 04/21/2014 Assessment & Plan (11/04/2023 1:42 PM WATER PUMP INSTALLER): Wheelchair dependent. 2/2 ms. - PT/OT/MEDICAL DEVICE ASSEMBLER Neurogenic bladder disorder 02/02/2013 Assessment & Plan (11/05/2023 12:38 PM WATER PUMP INSTALLER): Chronic obrien - Obrien changed on 10/30/2023 - Clear Yellow Urine Assessment & Plan (02/15/2019 9:38 AM CDT): With chronic obrien. Exchanged in the ED from 18F to 20F, no further leakage at this time. - continue home oxybutynin Assessment & Plan (02/14/2019 11:21 AM CDT): With chronic obrien. Exchanged in the ED from 18F to 20F, no further leakage at this time. - continue home oxybutynin Assessment & Plan (02/13/2019 11:02 AM CDT): With chronic obrien. Exchanged in the ED from 18F to 20F, no further leakage at this time. - continue home oxybutynin Assessment & Plan (02/12/2019 4:45 PM CDT): With chronic obrien. Exchanged in the ED from 18F to 20F, no further leakage at this time. - continue home oxybutynin Assessment & Plan (02/11/2019 6:24 PM CDT): With chronic obrien. Exchanged in the ED from 18F to 20F, no further leakage at this time. - continue home oxybutynin Assessment & Plan (02/11/2019 6:06 AM CDT): With chronic obrien. - continue home oxybutynin Urinary incontinence 12/17/2012 Spasm 12/15/2012 Orthostatic hypotension 03/11/2012 Ataxia 03/11/2012 Abnormal gait 01/20/2012 Multiple sclerosis 01/16/2012 Overview (01/30/2018): Impression: Today there is some increased weakness in the right arm compared to her prior exam. Though they remark her ability to feel herself has been declining over several months they report in the last months the patient seems to be doing much more with her left arm than her right. I wouldl angel to repeat imaging of the c-spine (last MRI early 2012 showed three non-enhancing lesions) to ensure there have been no further changes. Will not repeat brain MRI at this time because her recent brain MRI stable and these symptoms have been worsening over months. I believe patient would also benefit from a PT/OT evaluation. WIll place referral to [facility]. 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 Marcelino. No Disease modifying therapy for >10 years. At baseline patient is A&Ox2, wheelchair bound, sometimes speaks in sentences and enjoys watching television per family. This Admission -Neurology consulted and discussed with her outpatient specialist, do not recommend additional work-up at this time. Recommend continue home anti seizure meds. -11/02rEEG w/ nearly continuous, independent, focal, irregular delta slowing of b/l temporal regions that were quasi-rhythmic and diffuse, irregular delta-theta slowing -Home Baclofen reduced to 5mg QID (from 10mg) in setting of acutely altered mentation, resumed amantadine 100mg BID, and cholecalciferol (See Seizure) Mobility impaired Overview (02/11/2019): motorized wheelchair Bedbound Assessment & Plan (02/15/2019 9:38 AM CDT): - q2h turn, PT/OT. Pt has good home care with 24 h supervision from mother. Assessment & Plan (02/14/2019 11:21 AM CDT): - q2h turn, PT/OT. Pt has good home care with 24 h supervision from mother. Assessment & Plan (02/13/2019 11:01 AM CDT): - q2h turn, PT/OT. Pt has good home care with 24 h supervision from mother. Assessment & Plan (02/12/2019 4:49 PM CDT): - q2h turn, PT/OT. Pt has good home care with 24 h supervision from mother. Assessment & Plan (02/11/2019 6:25 PM CDT): - q2h turn, PT/OT. Pt has good home care with 24 h supervision from mother. Assessment & Plan (02/11/2019 6:05 AM CDT): - q2h turns Seizures Assessment & Plan (11/03/2023 2:15 PM WATER PUMP INSTALLER): Continue carbemazepime 100 mg 4 times daily, lacosamide 50 mg BID. This admission, Neurology consulted with plans to see patient in Epilepsy at the [facility]. Neurology signed of -Tegretol and Vimpat -F/U Epilepsy at the [facility] Assessment & Plan (02/15/2019 9:38 AM CDT): - continue home AEDs. Assessment & Plan (02/14/2019 11:21 AM CDT): - continue home AEDs. Assessment & Plan (02/13/2019 11:02 AM CDT): - continue home AEDs. Assessment & Plan (02/12/2019 4:49 PM CDT): - continue home AEDs. Assessment & Plan (02/11/2019 6:25 PM CDT): - continue home AEDs. Assessment & Plan (02/11/2019 6:05 AM CDT): - continue home AEDs. Resolved Problems Problem Noted Date Diagnosed Date Resolved Date Suprapubic catheter ([facility]) 02/21/2021 Social History Tobacco Use Types Packs/Day Years Used Date Smoking Tobacco: Never Smokeless Tobacco: Never Tobacco Cessation:Counseling Given: Not Answered Alcohol Use Standard Drinks/Week Comments No 0 (1 standard drink = 0.6 oz pur e alcohol) AUDIT-C Answer Date Recorded Q1: How often do you have a drink containing alcohol? Never 08/20/2022 Q2: How many drinks containi ng alcohol do you have on a typical day when you are drinking? Patient does not drink Q3: How often do you have si x or more drinks on one occasion? Never 08/20/2022 Personal Safety Answer Date Recorded Have you ever been in or are you currently in a harmful physical or emotional relationship or is someone making you feel afraid or unsafe? Denies 01/07/2024 Comments No Sex and Gender Information Value Date Recorded Sex Assigned at Not on file Legal Sex Female 7:09 PM WATER PUMP INSTALLER Gender Identity Not on file Sexual Orientation Not on file Last Filed Vital Signs Vital Sign Reading Time Taken Comments Blood Pressure 115/83 01/07/2024 3:15 PM CDT Pulse 88 01/07/2024 3:15 PM CDT Temperature 36.1 C (97 F) 01/07/2024 3:15 PM CDT Respiratory Rate 15 01/07/2024 3:15 PM CDT Oxygen Saturation 99% 01/07/2024 3:15 PM CDT Inhaled Oxygen Concentration - - Weight 58 kg (127 lb 13.9 oz) 10/17/2023 5:32 PM WATER PUMP INSTALLER Height 170.2 cm (5' 7.01 ) 10/17/2023 5:32 PM CS T Body Mass Index 20.02 10/17/2023 5:32 PM WATER PUMP INSTALLER Plan of Treatment Not on file Medical Devices Implanted Type Area Proof Coins Inspector Device Identifier Shelf Expiration Date Model / Serial / Lot Left Wrist Plates And Screws Left: Wrist Explanted Type Area Proof Coins Inspector Device Identifier Shelf Expiration Date Model / Serial / Lot [employer] Inlay [place] 6fr 26cm Pusher Fluoro Marker Atraumatic Insertion Latex Free [id number] - [id number] Implanted:Qty: 1 on 08/20/2022 by Alin Saeed DO at [facility] Explanted:Qty: 1 on 09/18/2022 by Alin Saeed DO Stent Right: Ureter [employer] [id number] 04/17/2026 [id number] / / [id number] Insurance MEDICARE FORMERLY [facility] MEDICARE FORMERLY [facility] MEDICARE My [facility] MEDICARE FORMERLY [facility] Advance Directives For more information, please contact: [phone] * Full Code (Latest Code Status on File) Date Activated Date Inactivated Comments 01/07/2024 3:11 PM 01/08/2024 4:54 AM * LIMITED - No CPR Date Activated Date Inactivated Comments 10/12/2023 2:13 PM 11/05/2023 7:35 PM Question Answer Comments Discussed with the following attending physician : Dr. Mac Weiner * Full Code Date Activated Date Inactivated Comments 10/11/2023 9:05 PM 10/12/2023 2:13 PM * Full Code Date Activated Date Inactivated Comments 08/20/2022 4:50 PM 08/23/2022 9:50 PM * Full Code Date Activated Date Inactivated Comments 03/01/2019 11:09 PM 03/05/2019 7:15 PM Care Teams Die Forger Relationship Specialty Start Date End Date Eri Peña MD [address] [address] PCP - General 10/07/17 Kathrin Jones, OT [facility] [address] Occupational Therapist Occupational Therapy 06/18/19
--- OUTSIDE RECORDS SUMMARY | 2024-12-14 19:41 | XMS_ITS | Encounter Summary ---
Author Organization [facility] Address 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 Gender Identity Not on file Sexual Orientation Not on file documented as of this encounter Plan of Treatment Not on file documented as of this encounter Procedures Procedure Name Priority Date/Time Associated Diagnosis Comments CBC WITH DIFFERENTIAL Routine 07/02/2007 11:17 AM CDT CBC WITH DIFFERENTIAL Routine 07/02/2007 11:17 AM CDT HEPATIC FUNCTION PANEL Routine 07/02/2007 11:17 AM CDT documented in this encounter Results * CBC WITH DIFFERENTIAL (07/02/2007 11:17 AM CDT) NEUTROPHILS 54 45 - 70 % INTERFAC E SYSTEM LYMPHOCYTES 32 16 - 45 % INTERFAC E SYSTEM MONOCYTES 12 3 - 13 % INTERFACE SYSTEM EOSINOPHILS 3 0 - 7 % INTERFAC E SYSTEM BASOPHILS 0 0 - 2 % INTERFACE SYSTEM NEUTROPHIL ABSOLUTE 2.87 1.90 - 7.00 K/uL INTERFACE SYSTEM LYMPHOCYTE ABSOLUTE 1.71 0.70 - 4.50 K/uL INTERFACE SYSTEM MONOCYTE ABSOLUTE 0.62 0.10 - 1.30 K/uL INTERFACE SYSTEM EOSINOPHIL ABSOLUTE 0.15 0.00 - 0.70 K/uL INTERFACE SYSTEM BASOPHILS ABSOLUTE 0.02 0.00 - 0.20 K/uL INTERFACE SYSTEM 07/02/2007 11:1 7 AM CDT Domenico Hickman MD HEMATOLOGY ORDERABLES Edited Performing Organization Address [facility] Phone Number INTERFACE SYSTEM Refer to clinic/hospital department * (ABNORMAL) CBC WITH DIFFERENTIAL (07/02/2007 11:17 AM CDT) WBC 5.4 4.0 - 9.8 K/uL INTERFACE SYSTEM RBC 5.03(H) 3.90 - 4.90 M/uL INTERFACE SYSTEM HEMOGLOBIN 14.1 11.8 - 14.8 g/dL INTERFACE SYSTEM HEMATOCRIT 43.4 35.5 - 44.0 % INTERFACE SYSTEM MCV 86.3 82.0 - 99.0 fL INTERFACE SYSTEM MCH 28.0 27.2 - 32.6 pg INTERFACE SYSTEM MCHC 32.5 31.5 - 35.5 % INTERFACE SYSTEM RDW 12.8 11.5 - 14.5 % INTERFACE SYSTEM RDW-STDEV 40.4 37.1 - 48.7 fL INTERFACE SYSTEM PLATELETS 210 140 - 350 K/uL INTERFACE SYSTEM MPV 10.8 9.3 - 12.4 fL INTERFACE SYSTEM 07/02/2007 11:1 7 AM CDT Domenico Hickman MD HEMATOLOGY ORDERABLES Edited Performing Organization Address [facility] de Phone Number INTERFACE SYSTEM Refer to clinic/hospital department * HEPATIC FUNCTION PANEL (07/02/2007 11:17 AM CDT) ALKALINE PHOSPHATASE 65 35 - 104 U/L INTERFACE SYSTEM AST 21 12 - 32 U/L INTERFACE SYSTEM ALT 14 0 - 31 U/L INTERFACE SYSTEM TOTAL PROTEIN 7.8 6.3 - 8.6 g/dL INTERFACE SYSTEM ALBUMIN 4.8 3.4 - 4.8 g/dL INTERFACE SYSTEM BILIRUBIN TOTAL 0.5 0.2 - 1.0 mg/dL INTERFACE SYSTEM BILIRUBIN DIRECT 0.2 0.0 - 0.3 mg/dL INTERFACE SYSTEM 07/02/2007 11:1 7 AM CDT us Domenico Hickman MD CHEMISTRY ORDERABLES Edited INTERFACE SYSTEM Refer to clinic/hospital department documented in this encounter Visit Diagnoses Diagnosis Multiple sclerosis (CMS/HCC)- Primary Multiple sclerosis documented in this encounter Care Teams Director Of Category Management Relationship Specialty Start Date End Date Paul Stoner MD [address] [place] [id number] PCP - General 09/25/06 09/14/24 documented as of this encounter
--- OUTSIDE RECORDS SUMMARY | 2024-12-14 19:41 | XMS_ITS | Clinical Summary ---
Author Organization [facility] Address [address] [place] [address] Care Team Providers Care Press Box Custodian Name Role Phone Eri Peña MD Primary Care Provider [phone] Kathrin Jones OT Unavailable [phone] Allergies Active Allergy Reactions Criticality Noted Date [...] 11/03/2023 Assessment & Plan (11/03/2023 9:28 AM PANTRY ATTENDANT): -Miconazole Powder TID x 7days Fever of unknown origin 10/21/2023 Overview (10/21/2023): Assessment & Plan (11/05/2023 12:35 PM PANTRY ATTENDANT): Given increased O2 requirements and new fever [...] Afebrile Assessment & Plan (10/21/2023 6:26 PM PANTRY ATTENDANT): A/P: Source of infection unclear, but favor [...] 10/15/2023 Assessment & Plan (11/05/2023 12:35 PM PANTRY ATTENDANT): RD and [facility] CR[facility]ADLE following. Patient with Small bowel Tube and receiving TF per RD recommendations. 10/31 [facility] LADLE Consulted with recommendations for Dysphagia 1 diet with nectar thick liquids for pleasure only. Ok to have Cymbalta with apple sauce. - 11/03 G-Tube placed, Tolerating TF and is now at goal 270mL. Free water Flush. - HHN placed. Bilateral pneumonia 10/12/2023 Assessment & Plan (11/05/2023 12:33 PM PANTRY ATTENDANT): Patient initially admitted to OSH 10/05 with weakness and fever and was found to have pneumonia and UTI. She was transferred to [facility] 10/11. CXR c/f multifocal PNA vs aspiration. CT chest w/o PE, requiring 3L upon transfer to [facility]. Could be cardiac mediated given BNP 25.5k. [...] (Vanc and Cefepime): Course Now Completed. (See Malnutrition-[facility] CRANE LADLE) Large bowel obstruction (CMS/HCC) 10/11/2023 Assessment & Plan (11/05/2023 12:34 PM PANTRY ATTENDANT): Diagnosed at OSH on CT, treated with conservative management and resolved prior to transfer. Currently tolerating tube feeds. - KUB in AM 15 showed multiple nondilated gas-filled loops of small [...] abx. Recent urine culture from 02/04 at [facility] grew Pseudomonas resistant to cipro and levofloxacin, [...] abx. Recent urine culture from 02/04 at [facility] grew Pseudomonas resistant to cipro and levofloxacin, [...] abx. Recent urine culture from 02/04 at [facility] grew Pseudomonas resistant to cipro and levofloxacin, [...] abx. Recent urine culture from 02/04 at [facility] grew Pseudomonas resistant to cipro and levofloxacin, [...] abx. Recent urine culture from 02/04 at 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 2/2 ms. - PT/OT/[facility]ADLE Neurogenic bladder disorder 02/02/2013 Assessment & Plan (11/05/2023 12:38 PM PANTRY ATTENDANT): Chronic obrien - Obrien changed on 10/30/2023 [...] 01/24/14 Assessment & Plan (11/03/2023 2:19 PM PANTRY ATTENDANT): History of end stage multiple sclerosis, follows [...] Seizures Assessment & Plan (11/03/2023 2:15 PM PANTRY ATTENDANT): Continue carbemazepime 100 mg 4 times daily, lacosamide 50 mg BID. This admission, Neurology consulted with plans to see patient in Epilepsy at the [facility]. Neurology signed of -Tegretol and Vimpat -F/U Epilepsy at the [facility] Assessment & Plan (02/15/2019 9:38 AM CDT): [...] Date Diagnosed Date Resolved Date Suprapubic catheter ([facility]) 02/21/2021 Encounters Date Type Department Care Team Description 10/15/2024 Orders Only [facility] Multiple Sclerosis [address] [place] [phone] Ember Marcelino MD Seizures ([facility]) 10/15/2024 Orders Only [facility] Multiple Sclerosis [address] [place] [phone] Deborah Eubanks RN 09/19/2024 Documentation [facility] Multiple Sclerosis [address] [place] [phone] Ember Marcelino MD from Last 3 Months Surgical History Surgery Date Site/Laterality Comments TONSILLECTOMY Tonsillectomy - (Added by TW Conv) [place] DILATION & CURETTAGE DX&/THER NONOBSTETRIC Dilation And Curettage - (Added by TW Conv) [place] ASPIRATION BLADDER INSERT SUPRAPUBIC CATHETER 10/20/2015 - 10/19/2016 Bladder Aspiration With Insertion Of Suprapubic Catheter - (Added by TW Conv) CYSTOSCOPY 07/22/2018 ORIF FOREARM FRACTURE IR G TUBE PLACEMENT PERCUTANEOUS 11/03/2023 N/A CHANGE G TUBE 01/07/2024 N/A Medical History Medical History Date Comments Multiple sclerosis (HCC) current ly not taking meds Suprapubic catheter (CMS/HCC) (HCC) Seizures (HCC) Mobility impaired motorized whee lchair Frozen shoulder Right Depression anxiety Short-term memory loss Bedbound Constipation Family History Medical History Relation Name Comments Hypertension Father Family history of hypertension - (Added by TW Conv) Parkinsonism Father Family history of Parkinson's disease - (Added by TW Conv) Diabetes Mother Family history of diabetes mellitus - (Added by TW Conv) Hypertension Mother Family history of hypertension - (Added by TW Conv) Multiple sclerosis Other 1 Multiple Sclerosis - 2 cousins with MS in father's side (Added by TW Conv) Heart disease Other 2 Heart Disease - (Added by TW Conv) Diabetes Other 3 Diabetes Mellit us - (Added by TW Conv) Anesthesia problems Neg Hx Relation Name Status Comments Father Mother Other 1 Other 2 Other 3 Social History Tobacco Use Types Packs/Day Years [...] on file Legal Sex Female 7:09 PM PANTRY ATTENDANT Gender Identity Not on file Sexual Orientation Not on file Obstetrics History Last Filed Vital Signs Vital Sign Reading Time Taken Comments Blood Pressure 115/83 01/07/2024 3:15 PM CDT Pulse 88 01/07/2024 3:15 PM CDT Temperature 36.1 C (97 F) 01/07/2024 3:15 PM CDT Respiratory Rate 15 01/07/2024 3:15 PM CDT Oxygen Saturation 99% 01/07/2024 3:15 PM CDT Inhaled Oxygen Concentration - - Weight 58 kg (127 lb 13.9 oz) 10/17/2023 5:32 PM PANTRY ATTENDANT Height 170.2 cm (5' 7.01 ) 10/17/2023 5:32 PM CS T Body Mass Index 20.02 10/17/2023 5:32 PM PANTRY ATTENDANT Plan of Treatment Health Maintenance Due Date Last Done Comments Breast Cancer Screening-Mammogram 1962 Cervical Cancer Screening 1962 Colon Cancer Screening-Colonoscopy 1962 Depression Screening 1962 Hepatitis C Screening 1962 DTaP/Tdap/Td Vaccine (1 - Tdap) 1973 Hepatitis B Screening 01/16/1980 Regular Well Visit/Exam 18-64 01/16/1980 Zoster Vaccine (1 of 2) 01/16/2012 Covid-19 Vaccine (4 - 2023-2 5 season) 2024 05/23/2022, 07/29/2021, 06/25/2021 Influenza Vaccine (#1) 2024 Pneumococcal vaccine <65 Aged Out No longer eligible based on patient's age to complete this topic Medical Devices Implanted Type Area Banquet Supervisor Device Identifier Shelf Expiration Date Model / Serial / Lot Left Wrist Plates And Screws Left: Wrist Explanted Type Area Banquet Supervisor Device Identifier Shelf Expiration Date Model / Serial / Lot [employer] Inlay [place] 6fr 26cm Pusher Fluoro Marker Atraumatic Insertion Latex Free [id number] - [id number] Implanted:Qty: 1 on 08/20/2022 by Alin Saeed DO at [facility] Explanted:Qty: 1 on 09/18/2022 by Alin Saeed DO Stent Right: Ureter [employer] [id number] 04/17/2026 [id number] / / [id number] Insurance MEDICARE [facility] MEDICARE [facility] MEDICARE [facility] MEDICARE [facility] Advance Directives For more information, please contact: [phone] * Full Code (Latest Code Status on [...] 11:09 PM 03/05/2019 7:15 PM Care Teams Press Box Custodian Relationship Specialty Start Date End Date Eri Peña MD [address] [facility] [address] [place] [address] PCP - General 10/07/17 Kathrin Jones, OT [facility] [facility] [address] [place] [address] Occupational Therapist Occupational Therapy 06/18/19
--- OUTSIDE RECORDS SUMMARY | 2024-12-14 19:41 | XMS_ITS | Encounter Summary ---
Author Organization [facility] [place] [facility] Address [address] [place] [address] Phone Care Team Providers Care Doll Repairer Name Role Phone Eri Peña MD Primary Care Provider [phone] Kathrin Jones OT Unavailable [phone] Kathi Dewey FIELD SERVICE TECHNICIAN Unavailable [phone] Encounter Details Date Type Department Care Team (Latest Contact Info) Description 11/22/2018 Orders Only [facility] Scanning, Provider Social History Tobacco Use Types Packs/Day Years Used Date Smoking Tobacco: Never Smokeless Tobacco: Never Alcohol Use Standard Drinks/Week Comments No 0 (1 standard drink = 0.6 oz pur e alcohol) Comments No Sex and Gender Information Value Date Recorded Sex Assigned at Not on file Legal Sex Female 7:09 PM CHIEF WELLNESS OFFICER Gender Identity Not on file Sexual Orientation Not on file documented as of this encounter Plan of Treatment Not on file documented as of this encounter Procedures Procedure Name Priority Date/Time Associated Diagnosis Comments SCAN - LABS 11/22/2018 documented in this encounter Results * SCAN - LABS (11/22/2018) us Provider Scanning Final Result documented in this encounter Visit Diagnoses Not on filedocumented in this encounter Additional Health Concerns Infection Onset Date Last Indicated Resolved Time COVID: Suspected 10/11/2023 10/12/2023 10/12/2023 2:02 AM CHIEF WELLNESS OFFICER COVID19 Comment:IP review 10/28/23: Pt has hit qualifying days for recovery, but pt has been taking antipyretics. Pt must be fever free without antipyretics to make COVID recovered. RICKY Esquivel CIC 10/12/2023 10/29/2023 11/03/2023 1 1:49 AM CHIEF WELLNESS OFFICER VRE 10/26/2023 10/26/2023 04/23/2024 3:05 AM CDT COVID: Suspected 10/29/2023 10/29/2023 10/29/2023 2:28 PM CHIEF WELLNESS OFFICER COVID: Recovered Comment: 11/03/2023 - Pt afebrile w/o antipyretics for greater than 24 hours. Logan Aragon 11/03/2023 11/03/2023 02/01/2024 3:05 AM C DT documented as of this encounter Care Teams Doll Repairer Relationship Specialty Start Date End Date Eri Peña MD [facility] [address] PCP - General 10/07/17 Kathrin Jones, OT [facility] [address] [address] Occupational Therapist Occupational Therapy 06/18/19 Kathi Dewey LCSW [address] [facility] [place] Mailstop [phone] [place] [address] [facility]OP Outpatient It Technical Specialist 11/06/23 11/09/23 documented as of this encounter
--- OUTSIDE RECORDS SUMMARY | 2024-12-14 19:41 | XMS_ITS | Encounter Summary ---
Author Organization [facility] Address [address] [place] [address] Care Team Providers Care Director Writing Name Role Phone Paul Stoner MD Primary Care Provider + Encounter Details Date Type Department Care Team (Late st Contact Info) Description 07/02/2007 Outpatient Historical [facility] Neurology [place] [facility] [id number] [facility] [address] [place] [phone] Domenico Hickman MD NO ADDRESS ON FILE Social History Tobacco Use Types Packs/Day Years Used Date Smoking Tobacco: Never Assessed Comments Unknown Sex and Gender Information Value Date Recorded Sex Assigned at Not on file Legal Sex Female 5:06 AM VB NET PROGRAMMER Gender Identity Not on file Sexual Orientation Not on file documented as of this encounter Plan of Treatment Not on file documented as of this encounter Visit Diagnoses Not on filedocumented in this encounter Care Teams Director Writing Relationship Specialty Start Date End Date Paul Stoner MD [address] [place] [phone] PCP - General 09/25/06 09/14/24 documented as of this encounter
--- OUTSIDE RECORDS SUMMARY | 2024-12-14 19:41 | XMS_ITS | Encounter Summary ---
Author Organization [employer] Address [address] [place] [address] Care Team Providers Care Supervisor Poultry Processing Name Role Phone Paul Stoner MD Primary Care Provider + Encounter Details Date Type Department Care Team (Latest Contact Info) Description 02/04/2008 Outpatient Historical HIS [facility] Domenico Izquierdo MD NO ADDRESS ON FILE Multiple Sclerosis (CMS/HCC) Social History Tobacco Use Types Packs/Day Years Used Date Smoking Tobacco: Never Assessed Comments Unknown Sex and Gender Information Value Date Recorded Sex Assigned at Not on file Legal Sex Female 5:06 AM SAFETY SUPERVISOR Gender Identity Not on file Sexual Orientation Not on file documented as of this encounter Plan of Treatment Not on file documented as of this encounter Procedures Procedure Name Priority Date/Time Associated Diagnosis Comments CBC WITH DIFFERENTIAL Routine 02/04/2008 1:03 PM CDT HEPATIC FUNCTION PANEL Routine 02/04/2008 1:03 PM CDT documented in this encounter Results * HEPATIC FUNCTION PANEL (02/04/2008 1:03 PM CDT) ALT 17 0 - 31 U/L [facility] BILIRUBIN TOTAL 0.4 0.2 - 1.0 mg/dL [facility] TOTAL PROTEIN 7.5 6.3 - 8.6 g/dL [facility] ALKALINE PHOSPHATASE 55 35 - 104 U/L [facility] BILIRUBIN DIRECT 0.1 0.0 - 0.3 mg/dL [facility] AST 18 12 - 32 U/L [facility] ALBUMIN 4.8 3.4 - 4.8 g/dL [facility] Blood specimen (specimen) 02/04/2008 1:03 PM CDT 02/04/2008 2:31 PM CDT us Domenico Hickman MD CHEMISTRY ORDERABLES Final Resul t [facility] [address] [place] [id number] * (ABNORMAL) CBC WITH DIFFERENTIAL (02/04/2008 1:03 PM CDT) HEMATOCRIT 43.9 35.5 - 44.0 % [facility] RDW-STDEV 42.7 37.1 - 48.7 fL [facility] RBC 4.79 3.90 - 4.90 M/uL [facility] MCHC 31.4(L) 31.5 - 35.5 % [facility] MCV 91.6 82.0 - 99.0 fL [facility] PLATELETS 259 140 - 350 K/uL [facility] HEMOGLOBIN 13.8 11.8 - 14.8 g/dL [facility] RDW 13.0 11.5 - 14.5 % [facility] WBC 6.3 4.0 - 9.8 K/uL [facility] MCH 28.8 27.2 - 32.6 pg [facility] MPV 10.6 9.3 - 12.4 fL [facility] MONOCYTES 12 3 - 13 % [facility] MONOCYTE ABSOLUTE 0.73 0.10 - 1.30 K/uL [facility] NEUTROPHILS 57 45 - 70 % [facility] NEUTROPHIL ABSOLUTE 3.57 1.90 - 7.00 K/uL [facility] EOSINOPHILS 2 0 - 7 % [facility] EOSINOPHIL ABSOLUTE 0.14 0.00 - 0.70 K/uL [facility] LYMPHOCYTES 29 16 - 45 % [facility] LYMPHOCYTE ABSOLUTE 1.82 0.70 - 4.50 K/uL [facility] BASOPHILS 0 0 - 2 % [facility] BASOPHILS ABSOLUTE 0.02 0.00 - 0.20 K/uL [facility] Blood specimen (specimen) 02/04/2008 1:03 PM CDT 02/04/2008 2:32 PM CDT us Domenico Hickman MD HEMATOLOGY ORDERABLES Edited INTERFACE SYSTEM Refer to clinic/hospital department [facility] [address] [place] [address] documented in this encounter Visit Diagnoses Diagnosis Multiple sclerosis (CMS/[facility]) Multiple sclerosis documented in this encounter Care Teams Supervisor Poultry Processing Relationship Specialty Start Date End Date Paul Stoner MD [address] [place] [phone] PCP - General 09/25/06 09/14/24 documented as of this encounter
--- OUTSIDE RECORDS SUMMARY | 2024-12-14 19:41 | XMS_ITS | Encounter Summary ---
Author Organization [facility] Address [address] [place] [address] Care Team Providers Care Diamond Sorter Name Role Phone Paul Stoner MD Primary Care Provider + Reason for Visit * Reason Onset Date Comments Severe Constipation 09/14/[address] [facility] Encounter Details Date Type Department Care Team (Late st Contact Info) Description 09/14/2024 Telephone [facility] Admitting [id number] [place] [address] [place] [address] [place] [address] Severe Constipation ([employer] Custom Secure Chat to [facility]) Social History Tobacco Use Types Packs/Day Years Used Date Smoking Tobacco: Never Assessed Feeling Safe Answer Date Recorded Are you in a relationship wi th someone who hurts you emotionally and/or physically? 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
--- OUTSIDE RECORDS SUMMARY | 2024-12-14 19:41 | XMS_ITS | Clinical Summary ---
Author Organization [facility] Address [address] [place] [address] Phone Care Team Providers Care Human Service Worker Name Role Phone Unavailable Primary Care Provider Unavailabl e Allergies Active Allergy Reactions Criticality Noted Date Comments Ibuprofen Other (See Comments) 09/10/2024 Received report that this patient is allergic to ibuprofen; no reaction list was mentioned Influenza Virus Vaccine, Specific Weakness Low 09/10/2024 Sulfa (Sulfonamide Antibiotics) Itching,Nausea and Vomiting,Swelling Medium 02/12/2019 Medications AVONEX IM Inject by intramuscular injection every 7 days. Active amantadine (SYMMETREL) 100 mg Oral CapIndications :MS (multiple sclerosis) (CMS/HCC) Take 1 Cap by mouth 2 times daily. 180 Cap 3 9 Active modafinil (PROVIGIL) 200 mg Oral Tab Take 1 Tab by mouth 2 times daily. Take 1/2 tab in am and noon. May gradually increase to 1 tab in am and noon. 60 Tab 5 9 Active trospium (SANCTURA) 20 mg Tablet Take 1 Tablet (20 mg) by mouth 2 times daily. 60 Tablet 5 0 Active lacosamide (VIMPAT) 100 mg tablet Take 50 mg by mouth 2 times daily. Active baclofen (LIORESAL) 10 mg tablet Take 10 mg by mouth 5 times daily. Active carBAMazepine (TEGretol) 200 mg tablet Take 100 mg by mouth 4 times daily. Active DULoxetine (CYMBALTA) 60 mg Capsule, Delayed Release(E.C.) Take 60 mg by mouth daily. Active cholecalcifero l, Vitamin D3, 125 mcg (5,000 unit) Capsule Take 5,000 Units by mouth daily. Active lactulose (ENULOSE) 20 gram/30 mL 15 mL by G Tube route 2 times daily. 300 mL 2 4 Active polyethylene glycol (MIRALAX) 17 gram Powder in Packet Take 1 Packet (17 Grams) by mouth 2 times daily. 60 Packet 1 4 Active psyllium (METAMUCIL) 3.4 gram powder Take 1 Packet (3.4 Grams) by mouth daily. 30 Packet 1 4 Active sennosides-doc usate sodium (SENNA-S) 8.6-50 mg tablet Take 1 Tablet by mouth daily. 60 Tablet 1 4 Active Active Problems Problem Noted Date Diagnosed Date Constipation 09/14/2024 Abdominal distention 09/14/2024 Osteomyelitis 09/10/2024 Sepsis with acute organ dysfunction 09/10/2024 Dysphagia, oropharyngeal phase 10/20/2023 Moderate protein-calorie malnutrition 10/15/2023 Large bowel obstruction 10/11/2023 Age-related osteoporosis wit hout current pathological fracture 05/21/2023 Quadriplegia, unspecified 05/21/2023 Cerebral atrophy 03/07/2021 Hyperlipidemia 09/02/2019 Memory impairment 12/24/2016 Urinary incontinence 12/17/2012 Orthostatic hypotension 03/11/2012 MS (multiple sclerosis) 02/03/2009 Muscle fatigue 02/03/2009 Resolved Problems Problem Noted Date Diagnosed Date Resolved Date Ataxia 03/11/2012 09/10/2024 Encounters Date Type Department Care Team Description 12/07/2024 External Device Data [facility] ABSTRACTION Provider, Abstract 11/23/2024 External Device Data [facility]STRACTION Provider, Abstract 11/16/2024 External Device Data [facility]STRACTION Provider, Abstract 11/16/2024 External Device Data [facility]STRACTION Provider, Abstract 11/16/2024 External Device Data [facility]STRACTION Provider, Abstract 11/11/2024 External Device Data [facility]STRACTION Provider, Abstract 11/03/2024 11:03 AM RAILROAD CRANE OPERATOR - 11/03/2024 11:48 AM RAILROAD CRANE OPERATOR Hospital Encounter [facility] Pre Post Recovery [id number] [place] [address] Kiana Ashley MD Inflammation of bone ([facility]) Discharge Disposition: Home or Self Care 11/02/2024 External Device Data [facility] ABSTRACTION Provider, Abstract 10/26/2024 External Device Data [facility]STRACTION Provider, Abstract 10/12/2024 External Device Data [facility]STRACTION Provider, Abstract 09/28/2024 External Device Data [facility]STRACTION Provider, Abstract 09/14/2024 External Device Data [facility] ABSTRACTION Provider, Abstract 09/14/2024 Telephone [facility] Admitting [id number] [place] [address] Isidro Crews MD Severe Constipation ([employer] [address] [facility]) 09/13/2024 Travel 09/09/2024 11:59 PM RAILROAD CRANE OPERATOR - 09/17/2024 3:35 PM RAILROAD CRANE OPERATOR Hospital Encounter [facility] Medical Surgical [address] [place] [address] Hugo Chase DO Wang, Fang, MD Haider, Taimoor, MD Osteomyelitis ([facility]) Discharge Disposition: Home Health Care Svc from Last 3 Months Family History Medical History Relation Name Comments Colon Cancer Neg Hx Esophageal Cancer Neg Hx Gastric Cancer Neg Hx Liver Cancer Neg Hx Pancreatic Cancer Neg Hx Social History Tobacco Use Types Packs/Day Years [...] on file 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 Gender Identity Not on file Sexual Orientation Not on file Last Filed Vital Signs Vital Sign Reading Time Taken Comments Blood Pressure 148/85 09/17/2024 7:53 AM RAILROAD CRANE OPERATOR Pulse 87 09/17/2024 7:53 AM RAILROAD CRANE OPERATOR Temperature 36.6 C (97.8 F) 09/17/2024 7:53 AM RAILROAD CRANE OPERATOR Respiratory Rate 18 09/17/2024 7:53 AM RAILROAD CRANE OPERATOR Oxygen Saturation 98% 09/17/2024 7:53 AM RAILROAD CRANE OPERATOR Inhaled Oxygen Concentration - - Weight 61.7 kg (136 lb) 09/12/2024 5:00 AM RAILROAD CRANE OPERATOR Height 170.2 cm (5' 7 ) 09/10/2024 12:38 AM RAILROAD CRANE OPERATOR Body Mass Index 21.3 09/10/2024 12:38 AM RAILROAD CRANE OPERATOR Plan of Treatment Health Maintenance Due Date Last Done Comments DTAP/TDAP/TD VACCINES (1 - Tdap) 1981 CERVICAL CANCER SCREENING 01/16/1992 BREAST CANCER SCREENING 2002 COLORECTAL SCREENING 2007 Colorectal Cancer Screening 2007 FIT-DNA Q 3 years 2007 FIT/FOBT Q 1 year 2007 Flex Sig/CT Colonography Q 5 years 2007 ZOSTER VACCINE (1 of 2) 01/16/2012 INFLUENZA VACCINE (#1) 2024 RSV VACCINE (60+ or ) (1 - 1-dose 75+ series) 2037 Procedures Procedure Name Priority Date/Time Associated Diagnosis Comments IR VENOUS ACCESS Routine 11/03/2024 11:4 3 AM RAILROAD CRANE OPERATOR Inflammation of bone (CMS/HCC) POC GLUCOSE Routine 09/17/2024 12:58 PM RAILROAD CRANE OPERATOR POC GLUCOSE Routine 09/17/2024 7:56 AM RAILROAD CRANE OPERATOR POC GLUCOSE Routine 09/17/2024 4:09 AM RAILROAD CRANE OPERATOR BASIC METABOLIC PANEL Routine 09/17/2024 2:47 AM RAILROAD CRANE OPERATOR PHOSPHORUS Routine 09/17/2024 2:47 AM RAILROAD CRANE OPERATOR MAGNESIUM LEVEL Routine 09/17/2024 2:47 AM RAILROAD CRANE OPERATOR CBC WITH DIFFERENTIAL Routine 09/17/2024 2:47 AM RAILROAD CRANE OPERATOR POC GLUCOSE Routine 09/16/2024 8:22 PM RAILROAD CRANE OPERATOR POC GLUCOSE Routine 09/16/2024 5:17 PM RAILROAD CRANE OPERATOR POC GLUCOSE Routine 09/16/2024 1:07 PM RAILROAD CRANE OPERATOR POC GLUCOSE Routine 09/16/2024 8:27 AM RAILROAD CRANE OPERATOR POC GLUCOSE Routine 09/16/2024 3:54 AM RAILROAD CRANE OPERATOR PHOSPHORUS Routine 09/16/2024 3:28 AM RAILROAD CRANE OPERATOR MAGNESIUM LEVEL Routine 09/16/2024 3:28 AM RAILROAD CRANE OPERATOR BASIC METABOLIC PANEL Routine 09/16/2024 3:28 AM RAILROAD CRANE OPERATOR CBC WITH DIFFERENTIAL Routine 09/16/2024 3:28 AM RAILROAD CRANE OPERATOR POC GLUCOSE Routine 09/16/2024 12:18 AM RAILROAD CRANE OPERATOR POC GLUCOSE Routine 09/15/2024 10:08 PM RAILROAD CRANE OPERATOR POC GLUCOSE Routine 09/15/2024 4:31 PM RAILROAD CRANE OPERATOR PT EVAL AND TREAT Routine 09/15/2024 1:1 4 PM RAILROAD CRANE OPERATOR XR ABDOMEN 1 VW Routine 09/15/2024 12:02 PM RAILROAD CRANE OPERATOR POC GLUCOSE Routine 09/15/2024 12:01 PM RAILROAD CRANE OPERATOR POC GLUCOSE Routine 09/15/2024 10:23 AM RAILROAD CRANE OPERATOR IR VENOUS ACCESS Routine 09/15/2024 8:29 AM RAILROAD CRANE OPERATOR POC GLUCOSE Routine 09/15/2024 4:10 AM RAILROAD CRANE OPERATOR BASIC METABOLIC PANEL Routine 09/15/2024 3:20 AM RAILROAD CRANE OPERATOR CBC WITH DIFFERENTIAL Routine 09/15/2024 3:20 AM RAILROAD CRANE OPERATOR POC GLUCOSE Routine 09/15/2024 12:18 AM RAILROAD CRANE OPERATOR POC GLUCOSE Routine 09/14/2024 9:11 PM RAILROAD CRANE OPERATOR POC GLUCOSE Routine 09/14/2024 5:55 PM RAILROAD CRANE OPERATOR POC GLUCOSE Routine 09/14/2024 12:20 PM RAILROAD CRANE OPERATOR POC GLUCOSE Routine 09/14/2024 8:07 AM RAILROAD CRANE OPERATOR POC GLUCOSE Routine 09/14/2024 4:00 AM RAILROAD CRANE OPERATOR PHOSPHORUS Routine 09/14/2024 2:48 AM RAILROAD CRANE OPERATOR MAGNESIUM LEVEL Routine 09/14/2024 2:48 AM RAILROAD CRANE OPERATOR BASIC METABOLIC PANEL Routine 09/14/2024 2:48 AM RAILROAD CRANE OPERATOR CBC WITH DIFFERENTIAL Routine 09/14/2024 2:48 AM RAILROAD CRANE OPERATOR POC GLUCOSE Routine 09/14/2024 1:06 AM RAILROAD CRANE OPERATOR POC GLUCOSE Routine 09/13/2024 9:39 PM RAILROAD CRANE OPERATOR POC GLUCOSE Routine 09/13/2024 5:50 PM [address]ROAD CRANE OPERATOR CT ABDOMEN PELVIS W CONTRAST Stat 09/13/2024 4:11 PM RAILROAD CRANE OPERATOR POC GLUCOSE Routine 09/13/2024 12:42 PM RAILROAD CRANE OPERATOR POC GLUCOSE Routine 09/13/2024 9:05 AM RAILROAD CRANE OPERATOR POC GLUCOSE Routine 09/13/2024 5:48 AM RAILROAD CRANE OPERATOR BASIC METABOLIC PANEL Routine 09/13/2024 3:07 AM RAILROAD CRANE OPERATOR CBC WITH DIFFERENTIAL Routine 09/13/2024 3:07 AM RAILROAD CRANE OPERATOR POC GLUCOSE Routine 09/13/2024 1:16 AM RAILROAD CRANE OPERATOR from Last 3 Months Results * IR VENOUS ACCESS (11/03/2024 11:43 AM RAILROAD CRANE OPERATOR) Only the most recent of2 resultswithin the time period is included. Anatomical Region Laterality Modality X-Ray Angiograph y 11/03/2024 11:4 5 AM RAILROAD CRANE OPERATOR Impressions 11/04/2024 10:23 AM RAILROAD CRANE OPERATOR IMPRESSION: Successful tunneled catheter removal. DICTATION LOCATION: Location [address] [place] [address] 11/04/2024 10:23 AM RAILROAD CRANE OPERATOR REMOVAL OF VENOUS ACCESS TUNNELED CATHETER DATE: 11/03/2024 11:43 AM HISTORY: Inflammation of bone DESCRIPTION OF PROCEDURE: Informed consent with obtained, including a detailed description of the risks and benefits of tunneled catheter removal. Maximum sterile technique was utilized including hasher machine operator and medical records assistant hat, mask, sterile gown and gloves with two minute hasher machine operator scrub followed by 2% chlorhexidine skin prep and large drapes with maximum sterile barrier. The right chest was prepped and draped in sterile fashion. 1% Lidocaine with epinephrine was used for local anesthesia. The sutures securing the catheter were cut. Using a curved hemostat, blunt dissection was performed through the tunneled catheter exit site. Utilizing blunt dissection and care not to damage the catheter, the cuff was released from the subcutaneous fat and surrounding scar. The catheter was successfully removed in its entirety. The wound was irrigated well with normal saline and good hemostasis achieved. A sterile dressing was applied. The patient tolerated the procedure well, and there were no complications. FINDINGS: The tunneled catheter was successfully removed in its entirety. INCIDENTAL FINDINGS: None. Procedure Note Pedrito Moreno MD - 11/04/2024 REMOVAL OF VENOUS ACCESS TUNNELED CATHETER DATE: 11/03/2024 11:43 AM HISTORY: Inflammation of bone DESCRIPTION OF PROCEDURE: Informed consent with obtained, including a detailed description of the risks and benefits of tunneled catheter removal. Maximum sterile technique was utilized including hasher machine operator and medical records assistant hat, mask, sterile gown and gloves with two minute hasher machine operator scrub followed by 2% chlorhexidine skin prep and large drapes with maximum sterile barrier. The right chest was prepped and draped in sterile fashion. 1% Lidocaine with epinephrine was used for local anesthesia. The sutures securing the catheter were cut. Using a curved hemostat, blunt dissection was performed through the tunneled catheter exit site. Utilizing blunt dissection and care not to damage the catheter, the cuff was released from the subcutaneous fat and surrounding scar. The catheter was successfully removed in its entirety. The wound was irrigated well with normal saline and good hemostasis achieved. A sterile dressing was applied. The patient tolerated the procedure well, and there were no complications. FINDINGS: The tunneled catheter was successfully removed in its entirety. INCIDENTAL FINDINGS: None. IMPRESSION: Successful tunneled catheter removal. DICTATION LOCATION: Location [address] [place] [address] Kiana Ashley MD IR ORDERABLES Final Result * (ABNORMAL) POC GLUCOSE (09/17/2024 12:58 PM RAILROAD CRANE OPERATOR) Only the most recent of27 resultswithin the time period is included. [facility] GLUCOSE POC 114(H) 74 - 99 mg/dL 09/17/2024 12:58 PM RAILROAD CRANE OPERATOR [facility] POINT OF CARE SPECIMEN SOURCE, GLUCOSE POC Whole Blood 09/17/2024 12:58 PM [facility] POINT OF CARE Blood, whole 09/17/2024 12:5 8 PM RAILROAD CRANE OPERATOR 09/17/2024 1:05 PM RAILROAD CRANE OPERATOR Isidro Crews MD POINT OF CARE TESTING Final Re sult [facility] POINT OF CARE CLIA # [id number] [place] [address] * (ABNORMAL) CBC WITH DIFFERENTIAL (09/17/2024 2:47 AM RAILROAD CRANE OPERATOR) Only the most recent of5 resultswithin the time period is included. [facility] WBC 4.6 4.5 - 10.5 K/uL 09/17/2024 4:45 AM RAILROAD CRANE OPERATOR [facility] RBC 4.12 3.90 - 4.90 M/uL 09/17/2024 4:45 AM RAILROAD CRANE OPERATOR [facility] HEMOGLOBIN 12.5 11.8 - 14.8 g/dL 09/17/2024 4:45 AM RAILROAD CRANE OPERATOR [facility] HEMATOCRIT 38.1 35.5 - 44.0 % 09/17/2024 4:45 AM RAILROAD CRANE OPERATOR [facility] MCV 92.5 82.0 - 99.0 fL 09/17/2024 4:45 AM RAILROAD CRANE OPERATOR [facility] MCH 30.4 27.8 - 34.5 pg 09/17/2024 4:45 AM RAILROAD CRANE OPERATOR [facility] MCHC 32.9 32.5 - 35.5 g/dL 09/17/2024 4:45 AM RAILROAD CRANE OPERATOR [facility] RDW 15.7(H) 11.5 - 14.5 % 09/17/2024 4:45 AM RAILROAD CRANE OPERATOR [facility] PLATELETS 237 160 - 420 K/uL 09/17/2024 4:45 AM [facility] MPV 8.3(L) 8.7 - 12.7 fL 09/17/2024 4:45 AM RAILROAD CRANE OPERATOR [facility] NEUTROPHILS 54 % 09/17/2024 4:45 AM RAILROAD CRANE OPERATOR [facility] LYMPHOCYTES 28 % 09/17/2024 4:45 AM RAILROAD CRANE OPERATOR [facility] MONOCYTES 14 % 09/17/2024 4:45 AM RAILROAD CRANE OPERATOR [facility] EOSINOPHILS 3 % 09/17/2024 4:45 AM RAILROAD CRANE OPERATOR [facility] BASOPHILS 1 % 09/17/2024 4:45 AM RAILROAD CRANE OPERATOR [facility] NEUTROPHIL ABSOLUTE 2.50 1.90 - 7.00 K/uL 09/17/2024 4:45 AM RAILROAD CRANE OPERATOR [facility] LYMPHOCYTE ABSOLUTE 1.30 0.70 - 4.50 K/uL 09/17/2024 4:45 AM RAILROAD CRANE OPERATOR [facility] MONOCYTE ABSOLUTE 0.60 0.10 - 1.30 K/uL 09/17/2024 4:45 AM RAILROAD CRANE OPERATOR [facility] EOSINOPHIL ABSOLUTE 0.10 0.00 - 0.70 K/uL 09/17/2024 4:45 AM RAILROAD CRANE OPERATOR [facility] BASOPHILS ABSOLUTE 0.00 0.00 - 0.20 K/uL 09/17/2024 4:45 AM RAILROAD CRANE OPERATOR [facility] Blood Venipuncture / Unknown 09/17/2024 2:47 AM RAILROAD CRANE OPERATOR 09/17/2024 3:41 AM RAILROAD CRANE OPERATOR Isidro Crews MD HEMATOLOGY ORDERABLES Final Re sult Performing Organization Address City/[facility]/ZIP Co de Phone Number [facility] CLIA# [id number] [place] [address] * PHOSPHORUS (09/17/2024 2:47 AM RAILROAD CRANE OPERATOR) Only the most recent of3 resultswithin the time period is included. PHOSPHORUS 3.2 2.5 - 4.5 mg/dL 09/17/2024 4:07 AM RAILROAD CRANE OPERATOR [facility] Blood Venipuncture / Unknown 09/17/2024 2:47 AM RAILROAD CRANE OPERATOR 09/17/2024 3:35 AM RAILROAD CRANE OPERATOR Isidro Crews MD CHEMISTRY ORDERABLES Final Res ult Performing Organization Address [facility] Co de Phone Number [facility] CLIA# [id number] [place] [address] * MAGNESIUM LEVEL (09/17/2024 2:47 AM RAILROAD CRANE OPERATOR) Only the most recent of3 resultswithin the time period is included. MAGNESIUM 2.3 1.6 - 2.6 mg/dL 09/17/2024 4:07 AM RAILROAD CRANE OPERATOR [facility] Blood Venipuncture / Unknown 09/17/2024 2:47 AM RAILROAD CRANE OPERATOR 09/17/2024 3:35 AM RAILROAD CRANE OPERATOR Isidro Crews MD CHEMISTRY ORDERABLES Final Res ult [facility] CLIA# [id number] [place] [address] * (ABNORMAL) BASIC METABOLIC PANEL (09/17/2024 2:47 AM RAILROAD CRANE OPERATOR) Only the most recent of5 resultswithin the time period is included. SODIUM 133(L) 136 - 145 mmol/L 09/17/2024 4:07 AM [facility] POTASSIUM 4.6 3.4 - 5.1 mmol/L 09/17/2024 4:07 AM [facility] CHLORIDE 101 98 - 107 mmol/L 09/17/2024 4:07 AM [facility] CO2 17(L) 22 - 29 mmol/L 09/17/2024 4:07 AM [facility] CALCIUM 9.5 8.6 - 10.4 mg/dL 09/17/2024 4:07 AM [facility] BUN 15 6 - 20 mg/dL 09/17/2024 4:07 AM [facility] CREATININE 0.46(L) 0.51 - 0.95 mg/dL 09/17/2024 4:07 AM [facility] GLUCOSE 125(H) 74 - 99 mg/dL 09/17/2024 4:07 AM [facility] GFR >60 >=60 mL/min/1.7 3 sq meter 09/17/2024 4:07 AM [facility] Comment:eGFR calculated with 2020 CKD-EPI equation. Vegetarian diet, extremely high or low muscle mass, and may affect results. Cystatin C with Glomerular Filtration Rate is a suitable alternative for these patients. ANION GAP 15 8 - 16 mmol/L 09/17/2024 4:07 AM [facility] Blood Venipuncture / Unknown 09/17/2024 2:47 AM RAILROAD CRANE OPERATOR 09/17/2024 3:35 AM RAILROAD CRANE OPERATOR us Isidro Crews MD CHEMISTRY ORDERABLES Final Res ult [facility] CLIA# [id number] [place] [address] * XR ABDOMEN 1 VW (09/15/2024 12:02 PM RAILROAD CRANE OPERATOR) Anatomical Region Laterality Modality Abdomen Computed Radiogr aphy 09/15/2024 12:0 2 PM RAILROAD CRANE OPERATOR Narrative 09/15/2024 12:45 PM RAILROAD CRANE OPERATOR EXAMINATION: XR ABDOMEN 1 VW DATE: 09/15/2024 12:02 PM HISTORY: Constipation FINDINGS: A percutaneous gastrostomy tube and moderate constipation are unchanged since the CT scan 2 days ago. Mild colonic distention has decreased. DICTATION LOCATION: [address] Procedure Note Geoffrey Crawford MD - 09/15/2024 EXAMINATION: XR ABDOMEN 1 VW DATE: 09/15/2024 12:02 PM HISTORY: Constipation FINDINGS: A percutaneous gastrostomy tube and moderate constipation are unchanged since the CT scan 2 days ago. Mild colonic distention has decreased. DICTATION LOCATION: [address] Eda Hernandez NP DIAGNOSTIC IMAGING ORDERABLES Fi nal Result * CT ABDOMEN PELVIS W CONTRAST (09/13/2024 4:11 PM RAILROAD CRANE OPERATOR) Anatomical Region Laterality Modality Abdomen Computed Tomogra phy 09/13/2024 4:12 PM RAILROAD CRANE OPERATOR Impressions 09/13/2024 4:23 PM RAILROAD CRANE OPERATOR IMPRESSION: 1. Rectum and colon are distended with stool. No mechanical bowel obstruction. 2. Redemonstrated focal cortical erosion at the posterior aspect of the right pubic bone, better characterized on prior MRI and may represent sequelae of osteomyelitis. 3. Multiple nonobstructing right renal stones measuring up to 5 mm. DICTATION LOCATION: [address] Narrative 09/13/2024 4:23 PM RAILROAD CRANE OPERATOR EXAMINATION: CT ABDOMEN PELVIS W CONTRAST DATE: 09/13/2024 4:11 PM HISTORY: Bowel obstruction suspected; See Reason for Exam TECHNIQUE: CT of the abdomen and pelvis was performed following the uneventful administration of contrast (IOPAMIDOL 76 % INTRAVENOUS SOLUTION (SINGLE USE VIAL) Given:80 mL) according to standard protocol. The examination was performed with the adjustment of mA according to the patient size and/or the use of Iterative Reconstruction Technique. COMPARISON: No prior study is available for comparison at the time of this dictation. FINDINGS: There is atelectasis in the dependent portions of the lung bases. The heart size is normal. The aorta is normal in caliber. The coronary arteries are atherosclerotic. Multiple subcentimeter low attenuating hepatic lesions are too small to characterize but likely represent cysts. Otherwise the liver enhances homogeneously. The gallbladder appears normal. The bile ducts are nondilated. The spleen enhances homogeneously. The pancreas and adrenal glands are normal. Right cortical atrophy with multiple nonobstructing stones measuring up to 5 mm. There is no evidence of renal calculus or hydronephrosis. Gastrostomy tube balloon terminates in the stomach. There is no evidence of bowel wall thickening or obstruction. The small bowel loops are on the right side of the hemiabdomen. Colon and rectum are distended with stool. The appendix appears normal. No free air or free fluid is identified within the abdomen. There is no abdominopelvic lymphadenopathy. A Nichols catheter terminates in a nondistended urinary bladder. No free fluid is seen in the pelvis. The aorta is normal in caliber. No suspicious bone lesion is seen. Focal cortical erosion at the posterior aspect of the right pubic bone, better characterized on prior MRI. Ruth Strong MD CT ORDERABLES Edited Result - Final from Last 3 Months Insurance MEDICARE PART A AND B [facility] Advance Directives For more information, please contact: [phone] * Full Code (Latest Code Status on File) Date Activated Date Inactivated Comments 09/10/2024 12:17 AM 09/17/2024 5:40 PM
--- OUTSIDE RECORDS SUMMARY | 2024-12-14 19:41 | XMS_ITS | Encounter Summary ---
Author Organization [facility] Address 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 Gender Identity Not on file Sexual Orientation Not on file documented as of this encounter Plan of Treatment Not on file documented as of this encounter Procedures Procedure Name Priority Date/Time Associated Diagnosis Comments CBC WITH DIFFERENTIAL Routine 09/25/2006 1:16 PM SOLID WASTE ENGINEER CBC WITH DIFFERENTIAL Routine 09/25/2006 1:16 PM SOLID WASTE ENGINEER COMPREHENSIVE METABOLIC PANEL Routine 09/25/2006 1:16 PM SOLID WASTE ENGINEER documented in this encounter Results * CBC WITH DIFFERENTIAL (09/25/2006 1:16 PM SOLID WASTE ENGINEER) NEUTROPHILS 49 45 - 70 % INTERFAC E SYSTEM LYMPHOCYTES 39 16 - 45 % INTERFAC E SYSTEM MONOCYTES 10 3 - 13 % INTERFACE SYSTEM EOSINOPHILS 3 0 - 7 % INTERFAC E SYSTEM BASOPHILS 0 0 - 2 % INTERFACE SYSTEM NEUTROPHIL ABSOLUTE 2.79 1.90 - 7.00 K/uL INTERFACE SYSTEM LYMPHOCYTE ABSOLUTE 2.19 0.70 - 4.50 K/uL INTERFACE SYSTEM MONOCYTE ABSOLUTE 0.54 0.10 - 1.30 K/uL INTERFACE SYSTEM EOSINOPHIL ABSOLUTE 0.14 0.00 - 0.70 K/uL INTERFACE SYSTEM BASOPHILS ABSOLUTE 0.01 0.00 - 0.20 K/uL INTERFACE SYSTEM 09/25/2006 1:16 PM SOLID WASTE ENGINEER Domenico Hickman MD HEMATOLOGY ORDERABLES Final Resu Performing Organization Address [facility] Phone Number INTERFACE SYSTEM Refer to clinic/hospital department * (ABNORMAL) CBC WITH DIFFERENTIAL (09/25/2006 1:16 PM SOLID WASTE ENGINEER) WBC 5.7 4.0 - 9.8 K/uL INTERFACE SYSTEM RBC 4.97(H) 3.90 - 4.90 M/uL INTERFACE SYSTEM HEMOGLOBIN 13.9 11.8 - 14.8 g/dL INTERFACE SYSTEM HEMATOCRIT 43.4 35.5 - 44.0 % INTERFACE SYSTEM MCV 87.3 82.0 - 99.0 fL INTERFACE SYSTEM MCH 28.0 27.2 - 32.6 pg INTERFACE SYSTEM MCHC 32.0 31.5 - 35.5 % INTERFACE SYSTEM RDW 13.0 11.5 - 14.5 % INTERFACE SYSTEM RDW-STDEV 41.3 37.1 - 48.7 fL INTERFACE SYSTEM PLATELETS 239 140 - 350 K/uL INTERFACE SYSTEM MPV 11.1 9.3 - 12.4 fL INTERFACE SYSTEM 09/25/2006 1:16 PM SOLID WASTE ENGINEER Domenico Hickman MD HEMATOLOGY ORDERABLES Final Resu Performing Organization Address [facility] Phone Number INTERFACE SYSTEM Refer to clinic/hospital department * COMPREHENSIVE METABOLIC PANEL (09/25/2006 1:16 PM SOLID WASTE ENGINEER) GLUCOSE 79 65 - 99 mg/dL INTERFACE SYSTEM CREATININE 0.72 0.51 - 0.95 mg/dL INTERFACE SYSTEM Comment:Note: Effective 08/20 New Methodolgy and Reference Ranges CALCIUM 8.7 8.4 - 10.2 mg/dL INTERFACE SYSTEM ALKALINE PHOSPHATASE 65 35 - 104 U/L INTERFACE SYSTEM AST 13 12 - 32 U/L INTERFACE SYSTEM ALT 15 0 - 31 U/L INTERFACE SYSTEM TOTAL PROTEIN 7.3 6.3 - 8.6 g/dL INTERFACE SYSTEM ALBUMIN 4.6 3.4 - 4.8 g/dL INTERFACE SYSTEM BILIRUBIN TOTAL 0.5 0.2 - 1.0 mg/dL INTERFACE SYSTEM BUN 10 6 - 20 mg/dL INTERFACE SYSTEM SODIUM 136 135 - 145 mmol/L INTERFACE SYSTEM POTASSIUM 4.1 3.5 - 4.9 mmol/L INTERFACE SYSTEM CHLORIDE 100 96 - 108 mmol/L INTERFACE SYSTEM CO2 28 22 - 30 mmol/L INTERFACE SYSTEM GFR, >60 >=60 mL/min/1.7 sq meter INTERFACE SYSTEM GFR >60 >=60 mL/min/1.7 sq meter INTERFACE SYSTEM Comment: Estimated GFR rate interpretative information for both Americans and non- Americans is available on the [facility] App[employer] at: [email or web address] Payment and Services ([email or web address] Select: Lab Policies and Procedures Select: Reference Ranges - GFR 09/25/2006 1:16 PM SOLID WASTE ENGINEER us Domenico Hickman MD CHEMISTRY ORDERABLES Final Resul t INTERFACE SYSTEM Refer to clinic/hospital department documented in this encounter Visit Diagnoses Diagnosis Multiple sclerosis (CMS/HCC)- Primary Multiple sclerosis documented in this encounter Care Teams Business Travel Consultant Relationship Specialty Start Date End Date Paul Stoner MD [address] [place] [address] PCP - General 09/25/06 09/14/24 documented as of this encounter
[2024-12-14 20:54] LABS: Influenza A QL RT-PCR Negative (Negative); Influenza B QL RT-PCR Negative (Negative); RSV RNA, RT-PCR Negative (Negative); SARS-CoV-2 RNA PCR Negative (Negative)
[2024-12-14 22:04] LABS: CRP 23.8 mg/dL (<1.0)
[2024-12-14] MEDS: SODIUM CHLORIDE 0.9% IV 1,000 ML 999 ML IV CONT (22:43)
[2024-12-14] MEDS: SODIUM CHLORIDE 0.9% IV 900 ML 999 ML IV CONT (22:44)
--- NOTE | 2024-12-14 23:45 | PM.IMHP ---
H&P: HPI History of Present Illness Date/Time: 12/14/24 23:45 Chief Complaint: 1. Shortness of breath 2. Weak cough 3. Fatigue Narrative: Donita Bermeo is a 64 F with a mHx significant for MS, seizures, bedbound status She resides at home and is under the care of her mother and daughter; she receives tube feeds and her routine medications via the tube. She also has a chronically indwelling obrien catheter. 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 There were no associated symptoms of vomiting, diarrhea, LOC, falls or chest pain. 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 bili 0.8 Influenza A/B, RSV, COVID-19: Not detected CXR: Subsegmental airspace disease and/or scarring in the right lower lung with a small adjacent bulla or loculated pneumothorax. Segmental left medial basal atelectasis/consolidation. Possible small right pleural effusion versus chronic pleural blunting. CTAP: Bilateral aspiration pneumonia. Fecal impaction, with mild wall thickening and dilation of the sigmoid colon. Early stercoral colitis is not excluded. Likely cystitis. Chronic right pubic symphysis osteomyelitis. Possible bilateral ishcial decubitus ulcers. Donita Bermeo will be admitted, evaluated and managed for pneumonia with concerns for aspiration PMFSH Social History Social History Smoking status: Never smoker Alcohol intake: never Substance use: never Substance use type: does not use Spiritual care concerns: No Meds Home Medications and Allergies Home Medications ?Medication ?Instructions ?Recorded ?Confirmed ?Type amantadine HCl 100 mg capsule 100 mg PO BID 09/09/24 12/14/24 History baclofen 10 mg tablet 10 mg PO .COMPLEX 09/09/24 12/15/24 History carbamazepine 100 mg chewable 100 mg PO .COMPLEX 09/09/24 12/15/24 History tablet duloxetine 60 mg capsule,delayed 60 mg PO AC 09/09/24 12/14/24 History release lacosamide 50 mg tablet (Vimpat) 50 mg PO BID 09/09/24 12/14/24 History polyethylene glycol 3350 17 gram 17 g feeding tube QAM PRN 09/09/24 12/15/24 History oral powder packet (Miralax) constipation trospium 20 mg tablet 20 mg PO QAM 09/09/24 12/14/24 History Allergies Allergy/AdvReac Type Severity Reaction Status Date / Time ibuprofen Allergy Unknown Unknown Verified 09/08/24 18:34 Sulfa (Sulfonamide Allergy Hives Verified 09/08/24 18:34 Antibiotics) Vital Signs Vital Signs - 24 hr 12/14/24 17:08 12/14/24 17:20 12/14/24 17:30 Temperature 101.7 F H Pulse Rate 113 H 110 H Respiratory Rate 24 H 27 H Blood Pressure 164/93 H 159/89 H Pulse Oximetry 93 93 95 Oxygen Delivery Nasal Cannula Nasal Cannula Oxygen Flow Rate 3 3 12/14/24 17:45 12/14/24 18:00 12/14/24 18:15 Temperature Pulse Rate 117 H 119 H 119 H Respiratory Rate 26 H 26 H 27 H Blood Pressure 163/87 H 168/77 H 178/98 H Pulse Oximetry 96 97 99 Oxygen Delivery Oxygen Flow Rate 12/14/24 18:45 12/14/24 19:15 12/14/24 19:30 Temperature Pulse Rate 119 H 119 H 118 H Respiratory Rate 27 H 27 H 26 H Blood Pressure 174/90 H 148/91 H 152/90 H Pulse Oximetry 98 95 97 Oxygen Delivery Oxygen Flow Rate 12/14/24 20:02 12/14/24 20:15 12/14/24 20:30 Temperature Pulse Rate 111 H 111 H 111 H Respiratory Rate 27 H 27 H 25 H Blood Pressure 129/68 129/68 120/77 Pulse Oximetry 94 93 94 Oxygen Delivery Oxygen Flow Rate 12/14/24 22:52 Temperature 99.0 F Pulse Rate Respiratory Rate Blood Pressure Pulse Oximetry Oxygen Delivery Oxygen Flow Rate Exam Const: General: comfortable and no acute distress HENMT: Ears: TM's normal bilaterally Face/Nose/Sinus: Normal nares present Mouth: Yes dry mucous membranes Eyes: Sclera: sclerae normal Pupils: Equal, round and reactive pupils present Neck: Neck: not supple Resp: Effort & Inspection: normal respiratory effort Cardio: Rate: tachycardic Rhythm: abnormal rhythm GI: Other: +PEG tube Urinary Catheter: Urinary Catheter: patent and draining Skin: Wounds: wounds noted (ischial region) Neuro: General: No gait normal Motor exam (neuro): strength not 5/5 throughout, tone not normal throughout and Abnormal motor strength present Extrem: General: abnormal to inspection Psych: Mental Status: mental status grossly abnormal Affect: No normal affect and No Anxious affect present H&P: Results Labs Labs: Short CBC 12/14/24 Range/Units 17:36 WBC 14.5 H (4.5-10.0) K/mm3 Hgb 13.3 (12.0-15.0) g/dL Hct 41.6 (37.0-47.0) % Plt Count 449 H D (150-375) k/mm3 BMP 12/14/24 17:36 Sodium 130 L Potassium 4.8 Chloride 95 L Carbon Dioxide 26 BUN 19 H Creatinine 0.42 L Glucose 111 H Calcium 9.5 Liver Function 12/14/24 Range/Units 17:36 Total Bilirubin 0.8 (0.2-1.3) mg/dL AST 45 H (14-36) U/L ALT 49 H (6-35) U/L Alkaline Phosphatase 200 H (38-126) U/L Albumin 3.9 (3.5-5.1) g/dL Assessment and Plan Assessment and plan (1) Aspiration pneumonia: Code(s): J69.0 - Pneumonitis due to inhalation of food and vomit Status: Acute (2) Acute hypoxemic respiratory failure: Code(s): J96.01 - Acute respiratory failure with hypoxia Status: Acute Plan Acute and principal conditions 1. Bilateral aspiration pneumonia. 2. Fecal impaction; probable stercoral colitis 3. Possible bilateral ischial decubitus ulcers. 4. Likely cystitis. . Rx: A. IVFs; B. Zosyn; Blood cultures C. May benefit from pulmonology input D. Chest physiotherapy Chronic and stable conditions 1. MS 2. Seizure disorder. 3. Recurrent depression. 4. Chronic right pubic symphysis osteomyelitis Miscellaneous care. 1. Code status. DNR 2. VTE prophylaxis. SCDs; EDU 3. Nutrition. NPO; Tube feeds Hospitalist MIPS Advance Care Plan I have confirmed that the patient's Advanced Care Plan is present, code status is documented, or surrogate decision maker is listed in patient medical record.: Yes Medication Reconciliation I have utilized all available resources to obtain, update and review the patients current medications (includes all prescriptions, OTC, herbals, cannabis, and nutritional supplements).: Yes The patient is not eligible for med reconciliation; the patient is in a emergent medical situation where delaying treatment would jeopardize the patients health.: Yes
[2024-12-15] VITALS (19 sets, daily range): BP systolic 122–166; BP diastolic 65–91; PULSE 87–110; RESP 20–25; TEMP 36.6–38.4; O2SAT 93–100; BMI 23.1
--- NOTE | 2024-12-15 | ADMGEN ---
This patient, Donita Bermeo, was admitted to IMU Room 214-01. Patient/family oriented to hospital policies and general routines including ID bracelet, bed and alarms, visiting hours, pain management, procedures, bathroom and other care routines, personal items, smoking policy, room service/diet, and visiting hours. Information on how to activate the Rapid Response Team has been discussed. Patient/Family are encouraged to report perceived risks to care and to ask questions if they do not understand what they are told or what they should do.
[2024-12-15] MEDS: PIPERACILLN/TAZ 3.375GM/NS50ML 3.375 GM/50 ML BAG IVPB ×4 (01:46→17:48)
[2024-12-15] MEDS: SODIUM CHLORIDE 0.9% IV 1,000 ML 100 ML IV CONT ×2 (01:46→11:47)
[2024-12-15] MEDS: LACOSAMIDE (*CRX) 50 MG TABLET FEED TUBE ×3 (01:51→16:36)
[2024-12-15 05:48] LABS: Basophils Percent Auto 0.3 % (0.2-1.2); Eosinophils Percent Auto 0.1 % (0-4.4); Hematocrit 38.7 % (37.0-47.0); Immature Granulocyte Absolute 0.05 K/mm3 (0.00-0.031); Immature Granulocyte Percent A 0.4 % (0-0.5); Lymphocytes Absolute Auto 0.77 K/mm3 (0.9-3.2); Lymphocytes Percent Auto 6.6 % (18.3-44.2); Mean Corpuscular Hemoglobin 28.4 pg (26-34); Mean Corpuscular Volume 91.5 fl (80-100); Monocytes Absolute Auto 1.1 K/mm3 (0.1-0.6); Monocytes Percent Auto 9.2 % (2.6-8.5); Neutrophils Absolute Auto 9.7 K/mm3 (1.3-6.7); Neutrophils Percent Auto 83.4 % (45.5-73.1); Platelet Count Result 339 k/mm3 (150-375); Red Blood Count 4.23 M/mm3 (4.2-5.4); Red Cell Distribution Width 14.6 % (11.5-14.5); White Blood Count 11.7 K/mm3 (4.5-10.0)
[2024-12-15 06:08] LABS: Alanine Aminotransferase 39 U/L (6-35); Albumin Level 3.2 g/dL (3.5-5.1); Alkaline Phosphatase 172 U/L (38-126); Anion Gap 11 mmol/L (4-12); Aspartate Amino Transferase 31 U/L (14-36); Blood Urea Nitrogen 13 mg/dL (7-17); Calcium 8.6 mg/dL (8.4-10.2); Carbon Dioxide 21 mmol/L (22-30); Chloride 102 mmol/L (98-107); Estimated CRCL calculation 126 ml/min; Estimated Glomerular Filt Rate > 60; Glucose 104 mg/dL (65-110); Potassium 4.5 mmol/L (3.4-5.0); Sodium 134 mmol/L (137-145)
[2024-12-15] MEDS: AMANTADINE HCL 100 MG CAPSULE PO (06:18)
[2024-12-15 06:49] LABS: Add Urine Microscopic? YES; Appearance Urine Clear (Clear); Bacteria Urine None Seen /hpf; Bilirubin Urine Negative (Negative); Blood Urine 1+ (Negative); Color Urine Yellow (Yellow); Glucose Urine UA Negative (Negative); Ketones Urine Negative (Negative); Leukocyte Esterase Ur 3+ LEU/UL (Negative); Need Manual Microscopic Reviewed; Nitrate Urine Negative (Negative); Protein Urine Trace mg/dL (Negative); Specific Grav Ur 1.026 (1.001-1.035); Squamous Epithelial Cell Urine None Seen /hpf (Few); Urobilinogen Urine 0.2 mg/dL (<2.0); WBC Urine >100 /hpf (0-3)
[2024-12-15] MEDS: HEPARIN SODIUM 5,000 UNITS/ML VIAL 5000 UNITS SUB-Q ×2 (09:04→21:41)
[2024-12-15] MEDS: polyethylene glycoL 3350 17 GM POWD.PACK FEED TUBE (09:04)
[2024-12-15] MEDS: [UNRECOGNIZED DRUG - OTHER] PO ×2 (09:05→16:36)
[2024-12-15] MEDS: TROSPIUM 20 MG PO ×2 (09:05→16:36)
[2024-12-15] MEDS: BACLOFEN 10 MG TABLET PO (09:07)
--- NOTE | 2024-12-15 09:14 | PHAR ---
The patient's home med of Trospium 20mg has been verified.
[2024-12-15] MEDS: AMANTADINE HCL 100 MG CAPSULE FEED TUBE (11:36)
[2024-12-15] MEDS: BACLOFEN 10 MG TABLET FEED TUBE ×4 (11:41→21:43)
[2024-12-15] MEDS: DOXYCYCLINE 100 MG/NS 100 ML 100 MG/100 ML BAG IVPB ×2 (12:36→21:41)
[2024-12-15] MEDS: ACETAMINOPHEN 325 MG TABLET 650 MG FEED TUBE ×2 (16:36→21:42)
--- NOTE | 2024-12-15 16:54 | PM.IMPN ---
Progress Note: A&P Assessment and Plan (1) Sepsis: Code(s): A41.9 - Sepsis, unspecified organism Status: Acute Assessment and Plan: Patient presents with shortness of breath and has a weak cough and found to have sepsis. CT of the chest with contrast shows multi segment, bilateral dependent consolidation with surrounding tree-in-bud opacities. She also has a patulous esophagus with fluid. These findings are concerning for bilateral aspiration pneumonia. Blood cultures collected and she was started on Zosyn. Doxycycline added today for atypical coverage and hx of MRSA colonization. COVID, RSV and influenza were negative. Lactic acid level was normal but white count elevated and patient febrile. White count trending downward. Blood cultures no growth to date. Monitor fever curve. Continue IV antibiotics. Check MRSA nasal swab (2) Acute hypoxemic respiratory failure: Code(s): J96.01 - Acute respiratory failure with hypoxia Status: Acute Assessment and Plan: Patient presented with shortness of breath and found to be hypoxic requiring up to 3 L nasal cannula. [place] related to aspiration pneumonia. She has been able to be weaned to room air now. Follow. (3) Aspiration pneumonia: Code(s): J69.0 - Pneumonitis due to inhalation of food and vomit Status: Acute Assessment and Plan: As above. Will elevate head of the bed. Resume tube feedings. Will switch to continuous feedings in hopes of preventing regurgitation. (4) Fecal impaction: Code(s): K56.41 - Fecal impaction Status: Acute Assessment and Plan: The CT scan of the abdomen and pelvis shows the rectum is dilated to 9 cm by form stool with mild wall thickening but no significant surrounding inflammatory changes. She has a dilated, mostly air-filled sigmoid colon but the remainder of the large bowel is decompressed. Large volume of colonic fecal material. MiraLax is scheduled now. Soapsuds enema ordered. Stop trospium Monitor stool output. 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 Wound care shows that the patient has flaking, maceration and peeling of the skin on areas in the back as well as bilateral buttock areas. She also has a right elbow stage III pressure ulcer noted. Appropriate wound care has been started. (6) Multiple sclerosis: Code(s): G35 - Multiple sclerosis Status: Acute Assessment and Plan: Patient with chronic MS with seizures. Continue Vimpat, Tegretol. Continue baclofen. (7) Functional quadriplegia secondary to MS: Code(s): G35 - Multiple sclerosis; R53.2 - Functional quadriplegia Status: Acute Assessment and Plan: Appropriate mattress, frequent turning. Plan 1. Code status. DNR 2. VTE prophylaxis. SCDs; EDU 3. Nutrition. NPO; Tube feeds Subjective Date/time seen: 12/15/24 16:54 Interval history: 64yo female with seizures, MS and severe debility here for SOB. Assuming care. Chart reviewed. Patient slept okay last night. She denies pain in the chest, abdomen or buttock area. Family does wound care at home. Patient is a Krysten lift to the chair. She has frequent UTIs due to a chronic Nichols. Family does bolus feedings at home. Exam Narrative: Tm 101.7 101.2 124/70 102 24 94% ra Gen - NARD Chest -lungs coarse anteriorly bilaterally. CV - RRR S1/S2. Telemetry showed 1 brief run of atrial tachycardia otherwise no acute dysrhythmias Abd -soft. Protuberant. Positive bowel sounds. G-tube site is clean, dry and intact. -fully secured with clear yellow urine in the bag Ext -trace pedal edema Neuro -patient is alert. He will provide some history. She is a functional quadriplegic. Psych - Nml mood Skin - Warm and dry. Sacral area not viewed at this time Objective Data Vital Signs Vital Signs: Vital Signs - 24 hr 12/14/24 17:08 12/14/24 17:20 12/14/24 17:30 Temperature 101.7 F H Pulse Rate 113 H 110 H Respiratory Rate 24 H 27 H Blood Pressure 164/93 H 159/89 H Pulse Oximetry 93 93 95 Oxygen Delivery Nasal Cannula Nasal Cannula Oxygen Flow Rate 3 3 12/14/24 17:45 12/14/24 18:00 12/14/24 18:15 Temperature Pulse Rate 117 H 119 H 119 H Respiratory Rate 26 H 26 H 27 H Blood Pressure 163/87 H 168/77 H 178/98 H Pulse Oximetry 96 97 99 Oxygen Delivery Oxygen Flow Rate 12/14/24 18:45 12/14/24 19:15 12/14/24 19:30 Temperature Pulse Rate 119 H 119 H 118 H Respiratory Rate 27 H 27 H 26 H Blood Pressure 174/90 H 148/91 H 152/90 H Pulse Oximetry 98 95 97 Oxygen Delivery Oxygen Flow Rate 12/14/24 20:02 12/14/24 20:15 12/14/24 20:30 Temperature Pulse Rate 111 H 111 H 111 H Respiratory Rate 27 H 27 H 25 H Blood Pressure 129/68 129/68 120/77 Pulse Oximetry 94 93 94 Oxygen Delivery Oxygen Flow Rate 12/14/24 22:52 12/15/24 00:00 12/15/24 00:00 Temperature 99.0 F 98.1 F Pulse Rate 88 87 Respiratory Rate 25 H Blood Pressure 128/70 Pulse Oximetry 100 Oxygen Delivery Oxygen Flow Rate 12/15/24 00:15 12/15/24 02:00 12/15/24 04:00 Temperature Pulse Rate 89 Respiratory Rate Blood Pressure Pulse Oximetry 98 97 Oxygen Delivery Nasal Cannula Nasal Cannula Oxygen Flow Rate 3 3 12/15/24 04:00 12/15/24 04:22 12/15/24 06:00 Temperature 98.0 F Pulse Rate 98 99 102 H Respiratory Rate 25 H Blood Pressure 162/91 H Pulse Oximetry 97 Oxygen Delivery Oxygen Flow Rate 12/15/24 08:00 12/15/24 08:00 12/15/24 08:07 Temperature 98 F Pulse Rate 107 H 107 H 107 H Respiratory Rate 20 20 Blood Pressure 166/77 H Pulse Oximetry 97 97 Oxygen Delivery Nasal Cannula Oxygen Flow Rate 2 12/15/24 10:00 12/15/24 11:25 12/15/24 12:00 Temperature 100.1 F H Pulse Rate 100 105 H 105 H Respiratory Rate 24 H 24 H Blood Pressure 124/70 Pulse Oximetry 96 96 Oxygen Delivery Room Air Oxygen Flow Rate 12/15/24 12:00 12/15/24 14:00 12/15/24 16:00 Temperature Pulse Rate 104 H 104 H 110 H Respiratory Rate Blood Pressure Pulse Oximetry 94 Oxygen Delivery Room Air Oxygen Flow Rate 12/15/24 16:00 12/15/24 16:36 Temperature 101.2 F H Pulse Rate 102 H Respiratory Rate Blood Pressure Pulse Oximetry Oxygen Delivery Oxygen Flow Rate Intake/Output Intake/Output: Intake & Output 12/12/24 12/13/24 12/14/2426/25 23:59 23:59 23:59 23:59 Intake Total 900 1150 Output Total 1550 Balance 900 -400 Meds/Results Medications: Active Medications Generic Name Dose Route Start Last Admin Trade Name Freq PRN Reason Stop Dose Admin Acetaminophen 650 mg 12/14/24 23:40 12/15/24 16:36 Acetaminophen 325 Mg Tablet FEED TUBE 650 mg Q4H PRN Administration Mild Pain (1-3) or Fever Albuterol/Ipratropium 3 ml 12/14/24 23:40 Ipratropium 0.5 Mg/Albuterol Sulfate 2.5 Mg Ampul.Neb 3 Ml INHALATION Q4HRT PRN shortness of breath/Wheezing Amantadine HCl 100 mg 12/15/24 11:00 12/15/24 11:36 Amantadine Hcl 100 Mg Capsule FEED TUBE 100 mg 0600,1100 EDU Administration Baclofen 10 mg 12/15/24 11:00 12/15/24 14:46 Baclofen 10 Mg Tablet FEED TUBE 10 mg 0800,1100,1400,1700,2000 EDU Administration Carbamazepine 100 mg 12/15/24 12:00 12/15/24 11:36 Carbamazepine Chew 100 Mg Chew FEED TUBE 100 mg Q6HR EDU Administration Duloxetine HCl 60 mg 12/16/24 09:00 Duloxetine Hcl 60 Mg Capsule.Dr EKATERINA ZAVALA EDU Guaifenesin/Dextromethorphan 10 ml 12/14/24 23:40 Guaifenesin/Dextromethorphan 10 Ml Udc FEED TUBE Q4H PRN Cough Heparin Sodium (Porcine) 5,000 units 12/15/24 09:00 12/15/24 09:04 Heparin Sodium 5,000 Units/Ml Vial SUB-Q 5,000 units Q12HR EDU Administration Piperacillin/Tazobactam/Dextrose 3.375 gm in 50 mls @ 100 mls/hr 12/15/24 00:00 12/15/24 12:41 Zosyn 3.375 Gm/Ns 50 Ml IVPB Infused Q6HR EDU Infusion Sodium Chloride 1,000 mls @ 100 mls/hr 12/14/24 23:40 12/15/24 11:47 Normal Saline Iv IV CONT 100 mls/hr .Q10H EDU Administration Doxycycline Hyclate 100 mg in 100 mls @ 100 mls/hr 12/15/24 11:25 12/15/24 12:36 Vibramycin 100 Mg/Ns 100 Ml IVPB 100 mls/hr Q12HR EDU Administration Lacosamide 50 mg 12/14/24 23:45 12/15/24 16:36 Lacosamide (*Crx) 50 Mg Tablet FEED TUBE 50 mg BID EDU Administration Melatonin 5 mg 12/14/24 23:40 Melatonin 5 Mg Tablet FEED TUBE HS PRN Insomnia Nonformulary Drug 0 mg 12/15/24 10:10 12/15/24 16:36 Trospium 20 Mg PO 01/14/25 10:09 20 mg Tablet BIDAC EDU Administration Polyethylene Glycol 17 gm 12/15/24 09:00 12/15/24 09:04 Polyethylene Glycol 3350 17 Gm Powd.Pack FEED TUBE 17 gm QAM EDU Administration Prochlorperazine Edisylate 10 mg 12/14/24 23:40 Prochlorperazine Edisylate 10 Mg/2 Ml Vial IV PUSH Q6H PRN Nausea And Vomiting Radiology Results: ITS Impressions Chest X-Ray 12/14/24 18:29 IMPRESSION: Subsegmental airspace disease and/or scarring in the right lower lung with a small adjacent bulla or loculated pneumothorax. Segmental left medial basal atelectasis/consolidation. Possible small right pleural effusion versus chronic pleural blunting. Chest/Abdomen/Pelvis CT 12/14/24 20:14 IMPRESSION: Bilateral aspiration pneumonia. Fecal impaction, with mild wall thickening and dilation of the sigmoid colon. Early stercoral colitis is not excluded. Likely cystitis. Chronic right pubic symphysis osteomyelitis. Possible bilateral ishcial decubitus ulcers. Labs Labs: Laboratory Results - last 24 hr 12/14/24 12/14/24 12/15/24 17:36 20:13 05:16 WBC 14.5 H 11.7 H RBC 4.75 4.23 Hgb 13.3 12.0 Hct 41.6 38.7 MCV 87.6 91.5 MCH 28.0 28.4 MCHC 32.0 31.0 L RDW 14.7 H 14.6 H Plt Count 449 H D 339 MPV 9.6 10.0 Immature Gran % (Auto) 0.4 0.4 Neut % (Auto) 84.6 H 83.4 H Lymph % (Auto) 4.5 L 6.6 L [place] % (Auto) 10.0 H 9.2 H Eos % (Auto) 0.2 0.1 Baso % (Auto) 0.3 0.3 Lymph # (Auto) 0.65 L 0.77 L [place] # (Auto) 1.5 H 1.1 H Eos # (Auto) 0.0 0.0 Baso # (Auto) 0.0 0.0 Abs Immat Gran (auto) 0.06 H 0.05 H Absolute Neuts (auto) 12.2 H 9.7 H Absolute Nucleated RBC 0.000 0.000 Nucleated RBC % 0.0 0.0 Sodium 130 L 134 L Potassium 4.8 4.5 Chloride 95 L 102 Carbon Dioxide 26 21 L Anion Gap 9 11 BUN 19 H 13 D Creatinine 0.42 L 0.36 L Estim Creat Clear Calc Not Reportable 126 Estimated GFR > 60 > 60 Glucose 111 H 104 Lactic Acid 1.1 Calcium 9.5 8.6 Total Bilirubin 0.8 1.0 AST 45 H 31 ALT 49 H 39 H Alkaline Phosphatase 200 H 172 H C-Reactive Protein 23.8 H Total Protein 8.0 7.0 Albumin 3.9 3.2 L Urine Color Urine Appearance Urine pH Ur Specific [place] Urine Protein Urine Glucose (UA) Urine Ketones Ur Blood (Man) Urine Nitrate Urine Bilirubin Urine Urobilinogen Add Ur Microanalysis Leukocyte Esterase Rfl Urine RBC Urine WBC Ur Squamous Epith Cells Urine Bacteria Urine Casts Influenza A (RT-PCR) Negative Influenza B (RT-PCR) Negative RSV (RT-PCR) Negative SARS-CoV-2 RNA (RT-PCR) Negative 12/15/24 05:26 WBC RBC Hgb Hct MCV MCH MCHC RDW Plt Count MPV Immature Gran % (Auto) Neut % (Auto) Lymph % (Auto) [place] % (Auto) Eos % (Auto) Baso % (Auto) Lymph # (Auto) [place] # (Auto) Eos # (Auto) Baso # (Auto) Abs Immat Gran (auto) Absolute Neuts (auto) Absolute Nucleated RBC Nucleated RBC % Sodium Potassium Chloride Carbon Dioxide Anion Gap BUN Creatinine Estim Creat Clear Calc Estimated GFR Glucose Lactic Acid Calcium Total Bilirubin AST ALT Alkaline Phosphatase C-Reactive Protein Total Protein Albumin Urine Color Yellow Urine Appearance Clear Urine pH 7.0 Ur Specific [place] 1.026 Urine Protein Trace Urine Glucose (UA) Negative Urine Ketones Negative Ur Blood (Man) 1+ H Urine Nitrate Negative Urine Bilirubin Negative Urine Urobilinogen 0.2 Add Ur Microanalysis Reviewed Leukocyte Esterase Rfl 3+ H Urine RBC 11-20 H Urine WBC >100 H Ur Squamous Epith Cells None seen Urine Bacteria None seen Urine Casts 3-5 Influenza A (RT-PCR) Influenza B (RT-PCR) RSV (RT-PCR) SARS-CoV-2 RNA (RT-PCR)
[2024-12-16] VITALS (17 sets, daily range): BP systolic 124–161; BP diastolic 68–93; PULSE 88–112; RESP 16–24; TEMP 36.4–38.1; O2SAT 90–99; BMI 24.0
[2024-12-16] MEDS: PIPERACILLN/TAZ 3.375GM/NS50ML 3.375 GM/50 ML BAG IVPB ×4 (00:49→17:24)
[2024-12-16] MEDS: SODIUM CHLORIDE 0.9% IV 1,000 ML 100 ML IV CONT ×2 (00:50→11:54)
[2024-12-16 02:41] LABS: MRSA (PCR) DETECTED (NOT DETECTE)
[2024-12-16 04:38] LABS: Basophils Percent Auto 0.5 % (0.2-1.2); Eosinophils Absolute Auto 0.2 K/mm3 (0-0.3); Eosinophils Percent Auto 2.7 % (0-4.4); Hematocrit 35.6 % (37.0-47.0); Immature Granulocyte Absolute 0.03 K/mm3 (0.00-0.031); Immature Granulocyte Percent A 0.3 % (0-0.5); Lymphocytes Absolute Auto 1.04 K/mm3 (0.9-3.2); Lymphocytes Percent Auto 11.8 % (18.3-44.2); Mean Corpuscular HGB Conc 30.9 g/dl (32-36); Mean Corpuscular Hemoglobin 28.1 pg (26-34); Mean Platelet Volume 9.6 fl (7.4-10.4); Monocytes Absolute Auto 0.9 K/mm3 (0.1-0.6); Monocytes Percent Auto 10.1 % (2.6-8.5); Neutrophils Absolute Auto 6.6 K/mm3 (1.3-6.7); Neutrophils Percent Auto 74.6 % (45.5-73.1); Platelet Count Result 253 k/mm3 (150-375); Red Blood Count 3.91 M/mm3 (4.2-5.4); Red Cell Distribution Width 14.6 % (11.5-14.5); White Blood Count 8.8 K/mm3 (4.5-10.0)
[2024-12-16 04:52] LABS: Alanine Aminotransferase 30 U/L (6-35); Albumin Level 2.9 g/dL (3.5-5.1); Alkaline Phosphatase 163 U/L (38-126); Anion Gap 10 mmol/L (4-12); Aspartate Amino Transferase 27 U/L (14-36); Bilirubin,Total 0.9 mg/dL (0.2-1.3); Blood Urea Nitrogen 8 mg/dL (7-17); Calcium 8.8 mg/dL (8.4-10.2); Carbon Dioxide 21 mmol/L (22-30); Chloride 106 mmol/L (98-107); Estimated CRCL calculation 120 ml/min; Estimated Glomerular Filt Rate > 60; Glucose 69 mg/dL (65-110); Magnesium 1.9 mg/dL (1.6-2.3); Phosphorus 2.9 mg/dL (2.5-4.5); Potassium 3.8 mmol/L (3.4-5.0); Sodium 137 mmol/L (137-145)
[2024-12-16] MEDS: AMANTADINE HCL 100 MG CAPSULE FEED TUBE ×2 (05:38→11:00)
[2024-12-16] MEDS: DOXYCYCLINE 100 MG/NS 100 ML 100 MG/100 ML BAG IVPB ×2 (10:57→20:27)
[2024-12-16] MEDS: polyethylene glycoL 3350 17 GM POWD.PACK FEED TUBE (10:58)
[2024-12-16] MEDS: HEPARIN SODIUM 5,000 UNITS/ML VIAL 5000 UNITS SUB-Q ×2 (10:58→20:27)
[2024-12-16] MEDS: LACOSAMIDE (*CRX) 50 MG TABLET FEED TUBE ×2 (10:59→17:24)
[2024-12-16] MEDS: BACLOFEN 10 MG TABLET FEED TUBE ×4 (10:59→20:27)
--- NOTE | 2024-12-16 11:54 | PM.IMPN ---
Progress Note: A&P Assessment and Plan (1) Sepsis: Code(s): A41.9 - Sepsis, unspecified organism Status: Acute Assessment and Plan: Patient presents with shortness of breath and has a weak cough and found to have sepsis. CT of the chest with contrast shows multi segment, bilateral dependent consolidation with surrounding tree-in-bud opacities. She also has a patulous esophagus with fluid. These findings are concerning for bilateral aspiration pneumonia. BCx collected and she was started on Zosyn. Doxycycline added for atypical coverage and MRSA colonization. COVID, RSV and influenza were negative. Lactic acid level was normal but white count elevated and patient febrile. White count normal now and fever curve better. Blood cultures no growth to date. UCx negative. Monitor fever curve. Continue IV antibiotics. (2) Acute hypoxemic respiratory failure: Code(s): J96.01 - Acute respiratory failure with hypoxia Status: Acute Assessment and Plan: Patient presented with shortness of breath and found to be hypoxic requiring up to 3 L nasal cannula. [place] related to aspiration pneumonia. She was weaned to room air but called back to the room for increasing O2 requirement. CXR repeated but remains unchanged. Patient was up to 6L. Patient was suctioned. Repeat exam showing clera lungs anteriorly and in flanks. She was mildly tachycardic. She was turned down to 4L then to 2L and currently at 94%. RN states patient does have transient hypoxia at night so consider sleep apnea. Consider also PE. Wean O2 as tolerated. Plan for apnea link close to discharge. Consider CTA if her hypoxa worsens. (3) Aspiration pneumonia: Code(s): J69.0 - Pneumonitis due to inhalation of food and vomit Status: Acute Assessment and Plan: As above. Elevate head of the bed. Resumed tube feedings as continuous feedings in hopes of preventing regurgitation. Stop IV fluids (4) Fecal impaction: Code(s): K56.41 - Fecal impaction Status: Acute Assessment and Plan: The CT scan of the abdomen and pelvis shows the rectum is dilated to 9 cm by form stool with mild wall thickening but no significant surrounding inflammatory changes. She has a dilated, mostly air-filled sigmoid colon but the remainder of the large bowel is decompressed. Large volume of colonic fecal material. BM x2 on 12/15 but none today. MiraLax is scheduled now. Repeat Soapsuds enema. Trospium stopped (was used for bladder spasms) Monitor stool output. 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 Wound care shows that the patient has flaking, maceration and peeling of the skin on areas in the back and bilateral buttock areas. She also has a right elbow stage III pressure ulcer noted. Appropriate wound care has been started. (6) Multiple sclerosis: Code(s): G35 - Multiple sclerosis Status: Acute Assessment and Plan: Patient with chronic MS with seizures. Continue Vimpat, Tegretol. Continue baclofen. (7) Functional quadriplegia secondary to MS: Code(s): G35 - Multiple sclerosis; R53.2 - Functional quadriplegia Status: Acute Assessment and Plan: Appropriate mattress, frequent turning. Plan 1. Code status. DNR 2. VTE prophylaxis. SCDs; EDU 3. Nutrition. NPO; Tube feeds Subjective Date/time seen: 12/16/24 11:54 Interval history: 64yo female with seizures, MS and severe debility here for SOB. No CP or abd pain. Family in room and they were updated. Exam Narrative: Tm 101.2 98.7 154/85 110 16 99% ra Gen - NARD Chest - clear anteriorly CV - RRR S1/S2. Telemetry showing no acute dysrhythmias Abd -soft. Positive bowel sounds. G-tube site is clean, dry and intact. -[place] secured with clear yellow urine in the bag Ext -trace pedal edema Neuro -patient is alert. Functional quadriplegic. Psych - Nml mood Skin - Warm and dry. Objective Data Vital Signs Vital Signs: Vital Signs - 24 hr 12/15/24 12:00 12/15/24 12:00 12/15/24 14:00 Temperature Pulse Rate 105 H 104 H 104 H Respiratory Rate 24 H Blood Pressure Pulse Oximetry 96 Oxygen Delivery Room Air Oxygen Flow Rate 12/15/24 16:00 12/15/24 16:00 12/15/24 16:30 Temperature 101.2 F H Pulse Rate 110 H 102 H 108 H Respiratory Rate 24 H Blood Pressure 158/77 H Pulse Oximetry 94 93 Oxygen Delivery Room Air Oxygen Flow Rate 12/15/24 16:36 12/15/24 17:36 12/15/24 18:00 Temperature 101.2 F H 99.6 F Pulse Rate 108 H Respiratory Rate Blood Pressure Pulse Oximetry Oxygen Delivery Oxygen Flow Rate 12/15/24 20:00 12/15/24 20:00 12/15/24 20:00 Temperature 98.3 F Pulse Rate 93 97 Respiratory Rate 24 H Blood Pressure 122/65 Pulse Oximetry 94 95 Oxygen Delivery Nasal Cannula Oxygen Flow Rate 2 12/15/24 22:00 12/16/24 00:00 12/16/24 00:00 Temperature 98.1 F Pulse Rate 98 92 Respiratory Rate 24 H Blood Pressure 124/68 Pulse Oximetry 95 93 Oxygen Delivery Room Air Oxygen Flow Rate 12/16/24 00:00 12/16/24 02:00 12/16/24 04:00 Temperature Pulse Rate 93 88 Respiratory Rate Blood Pressure Pulse Oximetry 95 Oxygen Delivery Room Air Oxygen Flow Rate 12/16/24 04:00 12/16/24 04:39 12/16/24 06:00 Temperature 97.5 F L Pulse Rate 95 102 H 104 H Respiratory Rate 24 H Blood Pressure 153/83 H Pulse Oximetry 96 Oxygen Delivery Oxygen Flow Rate 12/16/24 08:00 12/16/24 09:01 Temperature 98.7 F Pulse Rate 110 H Respiratory Rate 16 Blood Pressure 154/85 H Pulse Oximetry 99 99 Oxygen Delivery Room Air Oxygen Flow Rate Intake/Output Intake/Output: Intake & Output 12/13/24 12/14/24 12/15/24 12/16/24 23:59 23:59 23:59 23:59 Intake Total 900 1400 1050 Output Total 1850 800 Balance 900 -450 250 Meds/Results Medications: Active Medications Generic Name Dose Route Start Last Admin Trade Name Freq PRN Reason Stop Dose Admin Acetaminophen 650 mg 12/14/24 23:40 12/15/24 21:42 Acetaminophen 325 Mg Tablet FEED TUBE 650 mg Q4H PRN Administration Mild Pain (1-3) or Fever Albuterol/Ipratropium 3 ml 12/14/24 23:40 Ipratropium 0.5 Mg/Albuterol Sulfate 2.5 Mg Ampul.Neb 3 Ml INHALATION Q4HRT PRN shortness of breath/Wheezing Amantadine HCl 100 mg 12/15/24 11:00 12/16/24 11:00 Amantadine Hcl 100 Mg Capsule FEED TUBE 100 mg 0600,1100 EDU Administration Baclofen 10 mg 12/15/24 11:00 12/16/24 11:01 Baclofen 10 Mg Tablet FEED TUBE Not Given 0800,1100,1400,1700,2000 [facility] Carbamazepine 100 mg 12/15/24 12:00 12/16/24 10:58 Carbamazepine Chew 100 Mg Chew FEED TUBE 100 mg Q6HR EDU Administration Duloxetine HCl 60 mg 12/16/24 09:00 12/16/24 11:22 Duloxetine Hcl 60 Mg Capsule.Dr PO Not Given QAM EDU Guaifenesin/Dextromethorphan 10 ml 12/14/24 23:40 Guaifenesin/Dextromethorphan 10 Ml Udc FEED TUBE Q4H PRN Cough Heparin Sodium (Porcine) 5,000 units 12/15/24 09:00 12/16/24 10:58 Heparin Sodium 5,000 Units/Ml Vial SUB-Q 5,000 units Q12HR EDU Administration Piperacillin/Tazobactam/Dextrose 3.375 gm in 50 mls @ 100 mls/hr 12/15/24 00:00 12/16/24 05:33 Zosyn 3.375 Gm/Ns 50 Ml IVPB 100 mls/hr Q6HR EDU Administration Sodium Chloride 1,000 mls @ 100 mls/hr 12/14/24 23:40 12/16/24 00:50 Normal Saline Iv IV CONT 100 mls/hr .Q10H EDU Administration Doxycycline Hyclate 100 mg in 100 mls @ 100 mls/hr 12/15/24 11:25 12/16/24 10:57 Vibramycin 100 Mg/Ns 100 Ml IVPB 100 mls/hr Q12HR EDU Administration Lacosamide 50 mg 12/14/24 23:45 12/16/24 10:59 Lacosamide (*Crx) 50 Mg Tablet FEED TUBE 50 mg BID EDU Administration Melatonin 5 mg 12/14/24 23:40 Melatonin 5 Mg Tablet FEED TUBE HS PRN Insomnia Polyethylene Glycol 17 gm 12/15/24 09:00 12/16/24 10:58 Polyethylene Glycol 3350 17 Gm Powd.Pack FEED TUBE 17 gm QAM EDU Administration Prochlorperazine Edisylate 10 mg 12/14/24 23:40 Prochlorperazine Edisylate 10 Mg/2 Ml Vial IV PUSH Q6H PRN Nausea And Vomiting Radiology Results: ITS Impressions Chest X-Ray 12/14/24 18:29 IMPRESSION: Subsegmental airspace disease and/or scarring in the right lower lung with a small adjacent bulla or loculated pneumothorax. Segmental left medial basal atelectasis/consolidation. Possible small right pleural effusion versus chronic pleural blunting. Chest/Abdomen/Pelvis CT 12/14/24 20:14 IMPRESSION: Bilateral aspiration pneumonia. Fecal impaction, with mild wall thickening and dilation of the sigmoid colon. Early stercoral colitis is not excluded. Likely cystitis. Chronic right pubic symphysis osteomyelitis. Possible bilateral ishcial decubitus ulcers. Labs Labs: Laboratory Results - last 24 hr 12/16/24 12/16/24 01:02 04:31 WBC 8.8 RBC 3.91 L Hgb 11.0 L Hct 35.6 L MCV 91.0 MCH 28.1 MCHC 30.9 L RDW 14.6 H Plt Count 253 MPV 9.6 Immature Gran % (Auto) 0.3 Neut % (Auto) 74.6 H Lymph % (Auto) 11.8 L [place] % (Auto) 10.1 H Eos % (Auto) 2.7 Baso % (Auto) 0.5 Lymph # (Auto) 1.04 [place] # (Auto) 0.9 H Eos # (Auto) 0.2 Baso # (Auto) 0.0 Abs Immat Gran (auto) 0.03 Absolute Neuts (auto) 6.6 Absolute Nucleated RBC 0.000 Nucleated RBC % 0.0 Sodium 137 Potassium 3.8 Chloride 106 Carbon Dioxide 21 L Anion Gap 10 BUN 8 D Creatinine 0.38 L Estim Creat Clear Calc 120 Estimated GFR > 60 Glucose 69 Calcium 8.8 Phosphorus 2.9 Magnesium 1.9 Total Bilirubin 0.9 AST 27 ALT 30 Alkaline Phosphatase 163 H Total Protein 7.0 Albumin 2.9 L Nasal MRSA (PCR) Detected A*
[2024-12-16 12:58] LABS: Glucose Point of Care 72 mg/dl (65-105)
[2024-12-16 17:11] LABS: Glucose Point of Care 101 mg/dl (65-105)
--- NOTE | 2024-12-16 19:07 | PC.NURSE ---
Notified Dr Reeves of patient increased oxygen requirement. MD to review chart
[2024-12-16] MEDS: ACETAMINOPHEN 325 MG TABLET 650 MG FEED TUBE (20:27)
--- NOTE | 2024-12-16 23:48 | PC.NURSE ---
Pt diaphoretic at this. Covers removed, BS checked and stable, vital signs stable. Call placed to mother in regards to condition. Mother informed this nurse that pt has day/night sweats often. Mother stated that this has been going on for a year or so as she believes it started when she initially started getting tube feedings. Pt in bed without complaints at this time.
[2024-12-17] VITALS (26 sets, daily range): BP systolic 115–161; BP diastolic 69–100; PULSE 73–123; RESP 18–32; TEMP 35.9–36.9; O2SAT 85–100
[2024-12-17] MEDS: ACETAMINOPHEN 325 MG TABLET 650 MG FEED TUBE ×2 (00:04→13:10)
[2024-12-17] MEDS: PIPERACILLN/TAZ 3.375GM/NS50ML 3.375 GM/50 ML BAG IVPB ×5 (00:05→23:55)
[2024-12-17 00:40] LABS: Glucose Point of Care 136 mg/dl (65-105)
[2024-12-17 04:23] LABS: Basophils Percent Auto 0.3 % (0.2-1.2); Eosinophils Percent Auto 0.5 % (0-4.4); Hematocrit 33.5 % (37.0-47.0); Hemoglobin 10.4 g/dL (12.0-15.0); Immature Granulocyte Absolute 0.02 K/mm3 (0.00-0.031); Immature Granulocyte Percent A 0.3 % (0-0.5); Lymphocytes Absolute Auto 0.84 K/mm3 (0.9-3.2); Lymphocytes Percent Auto 13.1 % (18.3-44.2); Mean Corpuscular Hemoglobin 27.5 pg (26-34); Mean Corpuscular Volume 88.6 fl (80-100); Mean Platelet Volume 9.7 fl (7.4-10.4); Monocytes Absolute Auto 0.7 K/mm3 (0.1-0.6); Monocytes Percent Auto 11.5 % (2.6-8.5); Neutrophils Absolute Auto 4.8 K/mm3 (1.3-6.7); Neutrophils Percent Auto 74.3 % (45.5-73.1); Platelet Count Result 258 k/mm3 (150-375); Red Blood Count 3.78 M/mm3 (4.2-5.4); Red Cell Distribution Width 14.3 % (11.5-14.5); White Blood Count 6.4 K/mm3 (4.5-10.0)
[2024-12-17 04:38] LABS: Alanine Aminotransferase 24 U/L (6-35); Albumin Level 2.8 g/dL (3.5-5.1); Alkaline Phosphatase 145 U/L (38-126); Anion Gap 8 mmol/L (4-12); Aspartate Amino Transferase 19 U/L (14-36); Bilirubin,Total 0.4 mg/dL (0.2-1.3); Blood Urea Nitrogen 17 mg/dL (7-17); Carbon Dioxide 26 mmol/L (22-30); Chloride 104 mmol/L (98-107); Estimated CRCL calculation 120 ml/min; Estimated Glomerular Filt Rate > 60; Glucose 155 mg/dL (65-110); Potassium 3.3 mmol/L (3.4-5.0); Sodium 138 mmol/L (137-145)
[2024-12-17] MEDS: AMANTADINE HCL 100 MG CAPSULE FEED TUBE ×2 (05:10→13:19)
[2024-12-17] MEDS: LACOSAMIDE (*CRX) 50 MG TABLET FEED TUBE (09:56)
[2024-12-17] MEDS: polyethylene glycoL 3350 17 GM POWD.PACK FEED TUBE (09:56)
[2024-12-17] MEDS: HEPARIN SODIUM 5,000 UNITS/ML VIAL 5000 UNITS SUB-Q ×2 (09:57→21:13)
[2024-12-17] MEDS: POTASSIUM CHLORIDE 20 MEQ PACKET (FOR LIQUID) 40 MEQ FEED TUBE (09:57)
[2024-12-17] MEDS: DOXYCYCLINE 100 MG/NS 100 ML 100 MG/100 ML BAG IVPB ×2 (09:58→21:13)
[2024-12-17] MEDS: BACLOFEN 10 MG TABLET FEED TUBE ×2 (10:05→13:11)
--- NOTE | 2024-12-17 10:15 | PCSTNOTE ---
Please refer to the Bedside Swallow Evaluation in the EMR. Please note, silent aspiration cannot be ruled out at bedside.
--- NOTE | 2024-12-17 11:01 | PCNFU ---
Nutrition Follow-Up Complete: 1. Inability to meet estimated nutrition needs PO related to swallowing ability as evidenced by need for full tube feedings 2. Increased protein energy needs related to wound healing as evidenced by Stage 3 pressure injuries to elbow and sacrum Goal:Meet estimated nutrition needs Provide supplements for wound healing support Pt meeting goals, continue with same goals Pt current nutrition is NPO - Tube feedings: Jevity 1.5 @ 55ml/hr. Nutrition recommendation: continue with current plan of care Last recorded weight is 69.6 kg. Bowel Motility: +BM 12/15 Labs Reviewed: Hgb:10.4, HCT:33.5, Alb:2.8, K:3.3, Cr:0.38, Glu:155 Meds Noted: heparin, miralax Skin: Stage III to elbow, Stage III to sacrum Additional Notes: Pt on tube feedings, running per recommendations: Jevity 1,5 @ 55 ml/h with 150 ml flushes q 4 hours. Alec BID mixed with flushes for wound support (90 kcal, 2.5 g protein, glutamine and arginine for wound healing support.) Tube feeding provides 1815 kcal, 77 g protein, 920 ml free water. Total water with flushes 1820 ml/day. Meets needs @ 26 kcal/kg and 1.1 g protein/kg. Adequate for current needs. Pt tolerating. Agree with orders Monitoring tube feeding tolerance, output, labs, weights, wounds, plan of care Follow up Friday and Friday
--- NOTE | 2024-12-17 14:26 | P.PNIM_ITS ---
Progress Note: A&P Assessment and Plan (1) Sepsis: Code(s): A41.9 - Sepsis, unspecified organism Status: Acute Assessment and Plan: Patient presents with shortness of breath and has a weak cough and found to have sepsis. CT of the chest with contrast shows multi segment, bilateral dependent consolidation with surrounding tree-in-bud opacities. She also has a patulous esophagus with fluid. These findings are concerning for bilateral aspiration pneumonia. MRSA nasal swab positive. COVID, RSV and influenza PCR were negative. Lactic acid level was normal but white count elevated and patient febrile. BCx collected and she was started on Zosyn. Doxycycline added for atypical coverage and MRSA colonization. White count normal now and fever curve better. Blood cultures no growth to date. UCx negative. Monitor fever curve. Continue IV antibiotics. Change to abx via GTube if remains afebrile overnight. (2) Acute hypoxemic respiratory failure: Code(s): J96.01 - Acute respiratory failure with hypoxia Status: Acute Assessment and Plan: Patient presented with shortness of breath and found to be hypoxic requiring up to 3 L nasal cannula. [place] related to aspiration pneumonia. She was weaned to room air but had increasing O2 requirement last evening. CXR repeated but remains unchanged. Patient was up to 6L. Patient was suctioned. Oxygen was able to be weaned. RN states patient does have transient hypoxia at night so consider sleep apnea. [place] PE less likely. Weaned to room air now. Plan for apnea link close to discharge. Consider CTA if her hypoxia worsens. (3) Aspiration pneumonia: Code(s): J69.0 - Pneumonitis due to inhalation of food and vomit Status: Acute Assessment and Plan: As above. Elevate head of the bed. Resumed tube feedings as continuous feedings in hopes of preventing regurgitation. Speech therapy felt patient not able to handle oral intake or medications. Not sure if her worsening dysphagia from weakness due to sepsis or from progression of MS All meds are via GTube currently. Change cymbalta to venlafaxin and resume (discussed with pharmacy about equivalent dosing) (4) Fecal impaction: Code(s): K56.41 - Fecal impaction Status: Acute Assessment and Plan: The CT scan of the abdomen and pelvis shows the rectum is dilated to 9 cm by form stool with mild wall thickening but no significant surrounding inflammatory changes. She has a dilated, mostly air-filled sigmoid colon but the remainder of the large bowel is decompressed. Large volume of colonic fecal material. BM x2 on 12/15. Repeat Soapsuds enema with some benefit. MiraLax is scheduled now. Trospium stopped (was used for bladder spasms) Monitor stool output. 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 Wound care shows that the patient has flaking, maceration and peeling of the skin on areas in the back and bilateral buttock areas. She also has a right elbow stage III pressure ulcer noted. Appropriate wound care has been started. 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 (6) Multiple sclerosis: Code(s): G35 - Multiple sclerosis Status: Acute Assessment and Plan: Patient with chronic MS with seizures. Continue Vimpat, Tegretol. Continue baclofen. Family requesting information about private duty care and long term care phlebotomist notified. Also spoke with family about hospice care and all questions answered. (7) Functional quadriplegia secondary to MS: Code(s): G35 - Multiple sclerosis; R53.2 - Functional quadriplegia Status: Acute Assessment and Plan: Appropriate mattress, frequent turning. Plan 1. Code status. DNR 2. VTE prophylaxis. SCDs; DEU 3. Nutrition. NPO; Tube feeds Subjective Date/time seen: 12/17/24 14:26 Interval history: 64yo female with seizures, MS and severe debility here for SOB. Soap suds enema with some results. SHe has been moaning today. She denies pain but she is confused and unable to provide hx. She ws more hypoxic last night but improved after suctioning. Speech therapy felt she is high risk for aspiraiton. Exam Narrative: Tm 100.5 97.3 158/100 88 20 100% ra Gen - NARD but does moan on occasion. Chest - coarse BS. CV - RRR S1/S2. Telemetry showing no acute dysrhythmias Abd -soft. Positive bowel sounds. G-tube site is clean, dry and intact. mildly protuberant. She moans with abd exam. -[place] secured with clear yellow urine in the bag Ext -trace pedal edema Neuro -patient is alert. Mumbled speech. Functional quadriplegic. Skin - Warm and dry. Objective Data Vital Signs Vital Signs: Vital Signs - 24 hr 12/16/24 16:00 12/16/24 16:00 12/16/24 16:00 Temperature 99.2 F Pulse Rate 105 H 106 H Respiratory Rate 24 H Blood Pressure 155/93 H Pulse Oximetry 91 90 Oxygen Delivery Nasal Cannula Oxygen Flow Rate 2 12/16/24 18:00 12/16/24 18:00 12/16/24 20:00 Temperature Pulse Rate 112 H Respiratory Rate Blood Pressure Pulse Oximetry 90 94 Oxygen Delivery Nasal Cannula Nasal Cannula Oxygen Flow Rate 4 4 12/16/24 20:00 12/16/24 20:21 12/16/24 20:27 Temperature 100.5 F H 100.5 F H Pulse Rate 110 H 104 H Respiratory Rate 20 Blood Pressure 153/90 H Pulse Oximetry 93 Oxygen Delivery Oxygen Flow Rate 12/16/24 21:27 12/16/24 22:00 12/17/24 00:00 Temperature 99.6 F 97.6 F Pulse Rate 91 93 Respiratory Rate 20 Blood Pressure 151/77 H Pulse Oximetry 96 Oxygen Delivery Oxygen Flow Rate 12/17/24 00:00 12/17/24 00:00 12/17/24 02:00 Temperature Pulse Rate 79 74 Respiratory Rate Blood Pressure Pulse Oximetry 92 Oxygen Delivery Nasal Cannula Oxygen Flow Rate 2 12/17/24 03:24 12/17/24 04:00 12/17/24 04:00 Temperature 96.7 F L Pulse Rate 82 73 Respiratory Rate 20 Blood Pressure 133/76 Pulse Oximetry 99 97 Oxygen Delivery Nasal Cannula Oxygen Flow Rate 2 12/17/24 06:00 12/17/24 06:02 12/17/24 06:40 Temperature Pulse Rate 83 Respiratory Rate Blood Pressure Pulse Oximetry 91 97 Oxygen Delivery Nasal Cannula Room Air Oxygen Flow Rate 5 12/17/24 08:18 12/17/24 11:55 Temperature 98.4 F 97.3 F L Pulse Rate 75 88 Respiratory Rate 20 20 Blood Pressure 115/69 158/100 H Pulse Oximetry 96 100 Oxygen Delivery Oxygen Flow Rate Intake/Output Intake/Output: Intake & Output 12/14/24 12/15/24 12/16/24 12/17/24 23:59 23:59 23:59 23:59 Intake Total 900 1400 2742 968 Output Total 4135 6960 200 Balance 900 -594 525 768 Meds/Results Medications: Active Medications Generic Name Dose Route Start Last Admin Trade Name Freq PRN Reason Stop Dose Admin Acetaminophen 650 mg 12/14/24 23:40 12/17/24 13:10 Acetaminophen 325 Mg Tablet FEED TUBE 650 mg Q4H PRN Administration Mild Pain (1-3) or Fever Albuterol/Ipratropium 3 ml 12/14/24 23:40 Ipratropium 0.5 Mg/Albuterol Sulfate 2.5 Mg Ampul.Neb 3 Ml INHALATION Q4HRT PRN shortness of breath/Wheezing Amantadine HCl 100 mg 12/15/24 11:00 12/17/24 13:19 Amantadine Hcl 100 Mg Capsule FEED TUBE 100 mg 0600,1100 EDU Administration Baclofen 10 mg 12/15/24 11:00 12/17/24 13:49 Baclofen 10 Mg Tablet FEED TUBE Not Given 0800,1100,1400,1700,2000 EDU Carbamazepine 100 mg 12/15/24 12:00 12/17/24 13:11 Carbamazepine Chew 100 Mg Chew FEED TUBE 100 mg Q6HR EDU Administration Duloxetine HCl 60 mg 12/16/24 09:00 12/16/24 11:22 Duloxetine Hcl 60 Mg Capsule. PO Not Given QAM EDU Guaifenesin/Dextromethorphan 10 ml 12/14/24 23:40 Guaifenesin/Dextromethorphan 10 Ml Udc FEED TUBE Q4H PRN Cough Heparin Sodium (Porcine) 5,000 units 12/15/24 09:00 12/17/24 09:57 Heparin Sodium 5,000 Units/Ml Vial SUB-Q 5,000 units Q12HR EDU Administration Piperacillin/Tazobactam/Dextrose 3.375 gm in 50 mls @ 100 mls/hr 12/15/24 00:00 12/17/24 13:12 Zosyn 3.375 Gm/Ns 50 Ml IVPB 100 mls/hr Q6HR EDU Administration Doxycycline Hyclate 100 mg in 100 mls @ 100 mls/hr 12/15/24 11:25 12/17/24 09:58 Vibramycin 100 Mg/Ns 100 Ml IVPB 100 mls/hr Q12HR EDU Administration Lacosamide 50 mg 12/14/24 23:45 12/17/24 09:56 Lacosamide (*Crx) 50 Mg Tablet FEED TUBE 50 mg BID EDU Administration Melatonin 5 mg 12/14/24 23:40 Melatonin 5 Mg Tablet FEED TUBE HS PRN Insomnia Polyethylene Glycol 17 gm 12/15/24 09:00 12/17/24 09:56 Polyethylene Glycol 3350 17 Gm Powd.Pack FEED TUBE 17 gm QAM EDU Administration Prochlorperazine Edisylate 10 mg 12/14/24 23:40 Prochlorperazine Edisylate 10 Mg/2 Ml Vial IV PUSH Q6H PRN Nausea And Vomiting Radiology Results: ITS Impressions Chest/Abdomen/Pelvis CT 12/14/24 20:14 IMPRESSION: Bilateral aspiration pneumonia. Fecal impaction, with mild wall thickening and dilation of the sigmoid colon. Early stercoral colitis is not excluded. Likely cystitis. Chronic right pubic symphysis osteomyelitis. Possible bilateral ishcial decubitus ulcers. Chest X-Ray 12/16/24 16:35 IMPRESSION: Bilateral pneumonia unchanged from previous examination. Labs Labs: Laboratory Results - last 24 hr 12/16/24 12/16/24 12/17/24 11:51 23:41 04:16 WBC 6.4 RBC 3.78 L Hgb 10.4 L Hct 33.5 L MCV 88.6 MCH 27.5 MCHC 31.0 L RDW 14.3 Plt Count 258 MPV 9.7 Immature Gran % (Auto) 0.3 Neut % (Auto) 74.3 H Lymph % (Auto) 13.1 L [place] % (Auto) 11.5 H Eos % (Auto) 0.5 Baso % (Auto) 0.3 Lymph # (Auto) 0.84 L [place] # (Auto) 0.7 H Eos # (Auto) 0.0 Baso # (Auto) 0.0 Abs Immat Gran (auto) 0.02 Absolute Neuts (auto) 4.8 Absolute Nucleated RBC 0.000 Nucleated RBC % 0.0 Sodium 138 Potassium 3.3 L Chloride 104 Carbon Dioxide 26 Anion Gap 8 BUN 17 Creatinine 0.38 L Estim Creat Clear Calc 120 Estimated GFR > 60 Glucose 155 H POC Capillary Glucose 101 136 H Calcium 9.0 Total Bilirubin 0.4 AST 19 ALT 24 Alkaline Phosphatase 145 H Total Protein 7.0 Albumin 2.8 L
[2024-12-17] MEDS: ALBUTEROL SULFATE NEB 2.5 MG/3 ML INH INHALATION (17:06)
--- NOTE | 2024-12-17 17:06 | ECG_ITS ---
Test Date: 2024-12-17 17:11:24 Measurements Intervals Orient Rate: 128 P: 0 MT: 0 QRS: 238 QRSD: 151 T: 43 QT: 374 QTc: 546 Interpretive Statements WIDE COMPLEX TACHYCARDIA, CONSIDER ATRIAL FLUTTER/TACHYARDIA RIGHT AXIS DEVIATION RIGHT BUNDLE BRANCH BLOCK PEAKED T WAVES- CONSIDER HYPERKALEMIA BASELINE ARTIFACT- I, III, AVR, AVL, AVF ABNORMAL ECG Compared to ECG 12/14/2024 17:24:22 SINUS TACHYCARDIA NO LONGER PRESENT Right bundle-branch block now present PEAKED T WAVES NOW PRESENT Electronically Signed On 12-17-2024 19:28:46 LINEN ATTENDANT by Jasbir Albright D.O.
[2024-12-17 17:08] LABS: Alveolar/Arterial O2 Gradient 436.3 mmHg; Base Excess ABG -2.9 mEq/l (+/-2.0); Carboxyhemoglobin 0.3 % THb (0-2.0); Fractional Inspired Oxygen 80 %; HCO3 ABG 23.4 mEq/l (22.0-26.0); Methemoglobin ABG 0.2 %THb (0-1.5); Oxygen Content ABG 17.9 %vol (16.0-22.0); Oxygen Saturation ABG 95.6 % (95.0-100.0); Oxyhemoglobin 95.2 % THb (90.0-100.0); PCO2 ABG 46.7 mmHg (35.0-45.0); PO2 ABG 85.1 mmHg (80.0-100.0); PO2 FiO2 Ratio Arterial Blood 1.06 %; Reduced Hemoglobin 4.3 %THb (0-5.0); Total Hemoglobin 13.3 g/dL (12.0-18.0); pH ABG 7.318 (7.350-7.450)
[2024-12-17 17:10] LABS: Device HIGH FLOW NASAL CANN; Modified Allen's Test Pass; Site Drawn RIGHT RADIAL
[2024-12-17 17:45] LABS: Basophils Absolute Auto 0.1 K/mm3 (0.0-0.1); Basophils Percent Auto 0.6 % (0.2-1.2); Eosinophils Absolute Auto 0.2 K/mm3 (0-0.3); Eosinophils Percent Auto 2.9 % (0-4.4); Hematocrit 41.3 % (37.0-47.0); Hemoglobin 12.6 g/dL (12.0-15.0); Immature Granulocyte Absolute 0.09 K/mm3 (0.00-0.031); Immature Granulocyte Percent A 1.1 % (0-0.5); Immature Platelet Fraction Pct 2.5 % (0.9-11.2); Lymphocytes Absolute Auto 1.24 K/mm3 (0.9-3.2); Lymphocytes Percent Auto 14.9 % (18.3-44.2); Mean Corpuscular HGB Conc 30.5 g/dl (32-36); Mean Corpuscular Hemoglobin 27.8 pg (26-34); Mean Corpuscular Volume 91.2 fl (80-100); Monocytes Absolute Auto 1.2 K/mm3 (0.1-0.6); Monocytes Percent Auto 13.9 % (2.6-8.5); Neutrophils Absolute Auto 5.5 K/mm3 (1.3-6.7); Neutrophils Percent Auto 66.6 % (45.5-73.1); Platelet Count Result 326 k/mm3 (150-375); Red Blood Count 4.53 M/mm3 (4.2-5.4); Red Cell Distribution Width 14.6 % (11.5-14.5); White Blood Count 8.3 K/mm3 (4.5-10.0)
[2024-12-17 17:53] LABS: Prothrombin Time 13.2 Seconds (11.1-14.7)
[2024-12-17 17:54] LABS: Partial Thromboplastin Time 31.5 Seconds (22.3-36.8)
[2024-12-17 17:58] LABS: Lactic Acid Reflex 3.2 mmol/L (0.7-2.0)
[2024-12-17 18:11] LABS: NT Pro B Type Natriuretic Pept 922 pg/mL (19.9-100); Troponin I 0.026 ng/mL (0.000-0.034)
[2024-12-17 18:15] LABS: Platelet Estimate Adequate (Adequate); Schistocytes None Seen
[2024-12-17 18:16] LABS: Procalcitonin 0.2 ng/mL
[2024-12-17 18:16] LABS: Alanine Aminotransferase 30 U/L (6-35); Albumin Level 3.2 g/dL (3.5-5.1); Alkaline Phosphatase 180 U/L (38-126); Anion Gap 10 mmol/L (4-12); Aspartate Amino Transferase 25 U/L (14-36); Bilirubin,Total 0.5 mg/dL (0.2-1.3); Blood Urea Nitrogen 24 mg/dL (7-17); CRP 19.9 mg/dL (<1.0); Calcium 9.6 mg/dL (8.4-10.2); Carbon Dioxide 21 mmol/L (22-30); Chloride 106 mmol/L (98-107); Estimated CRCL calculation 115 ml/min; Estimated Glomerular Filt Rate > 60; Glucose 135 mg/dL (65-110); Magnesium 1.7 mg/dL (1.6-2.3); Phosphorus 3.5 mg/dL (2.5-4.5); Potassium 4.8 mmol/L (3.4-5.0); Sodium 137 mmol/L (137-145)
--- NOTE | 2024-12-17 19:33 | PM.CCN ---
Critical Care Event Note Summary Code activated: No (a) Narrative: Called back to the room for sudden onset of hypoxia after she was lying flat for an xray. She had been off her TF prior to lying flat. Upon entering the room, patient was sitting up right and tachypneic, clammy to touch and having grunting respirations. SBP was in the 200's. She was on HFNC at 15L and Spo2 was in the mid 90's. She was unable to provide hx. She was tachycardic. Coarse BS appreacited. Family was present in the room. Stat EKG, Labs, ABG and labs ordered. CBC was normal. ABG 7.32/47/85 on 15L. Lactic acid 3.2 with repeat pending. CMP unrevealing. CRP 20 but PCT 0.2. RN did state the SpO2 dropped to 20% before she started to respond. EKG showing irregular, tachycardic with wide complex felt to be AFib/RVR with abarrancy and possible acute MN. CXR showing persistent bibasilar atelecatsis vs PNA but no change. Increased density on right hilar noted. Spoke with family about the possible acute MN and that given the patient's critical conidtion and that she can not lay flat, that this would best be treated medically. First Trop has now returned negative. Patient's condition did improve and she was able to be weaned to 10L. Called back to room when she became more hypoxic after moving her in bed. SpO2 up to 97% on 15L after suctioning. Family in the room. They were updated and all questions were answered KUB does show persistent fecal impaction which will have to be dealt with later. This case had a high probability of a clinically significant, sudden, or life threatening deterioration of this patient's condition which required my full and direct attention, intervention and personal management. 50 minutes spent on critical care time. Critical care time: 30 - 74 mins
[2024-12-17 20:37] LABS: Lactic Acid Reflex 1.8 mmol/L (0.7-2.0)
[2024-12-17 20:39] LABS: Reflex Lactic Acid Yes or No Add Lactic
[2024-12-17 20:58] LABS: Troponin I 0.297 ng/mL (0.000-0.034)
[2024-12-17 21:14] LABS: Lactic Acid 1.4 mmol/L (0.7-2.0)
--- NOTE | 2024-12-17 22:22 | PC.NURSE ---
[address] Chase of information obtained from pharmacy - instructed to monitor over night. [address] Chase of patient being NPO and nothing by PEG tube; however, patient is on seizure medications. Instructed to monitor patient over night and check with pharmacy if medication has an IV alternative.
--- NOTE | 2024-12-17 22:24 | PC.NURSE ---
2220 Updated family at bedside of plans to monitor due to patient being NPO and nothing by PEG tube. Family reports IV Keppra does not control seizure activity.
--- NOTE | 2024-12-17 23:21 | PCRCNOTE ---
attempted CPT vest therapy, however, patient has a feeding tube and the vest was hitting tube, which possibly could dislodge it. therapy was not started as family member did not want to attempt it. BIOLOGICAL TECHNICIAN Sandra Monreal aware and nurse aware.
[2024-12-18] VITALS (26 sets, daily range): BP systolic 115–135; BP diastolic 84–97; PULSE 104–114; RESP 16–26; TEMP 36.3–36.8; O2SAT 93–100
[2024-12-18 00:18] LABS: Troponin I 0.375 ng/mL (0.000-0.034)
[2024-12-18] MEDS: FUROSEMIDE INJ 40 MG/4 ML VIAL IV PUSH (00:48)
[2024-12-18 04:04] LABS: Basophils Percent Auto 0.4 % (0.2-1.2); Eosinophils Percent Auto 0.2 % (0-4.4); Hemoglobin 12.5 g/dL (12.0-15.0); Immature Granulocyte Absolute 0.06 K/mm3 (0.00-0.031); Immature Granulocyte Percent A 0.7 % (0-0.5); Lymphocytes Absolute Auto 0.79 K/mm3 (0.9-3.2); Lymphocytes Percent Auto 8.9 % (18.3-44.2); Mean Corpuscular HGB Conc 32.1 g/dl (32-36); Mean Corpuscular Hemoglobin 28.2 pg (26-34); Mean Corpuscular Volume 87.8 fl (80-100); Mean Platelet Volume 9.7 fl (7.4-10.4); Monocytes Absolute Auto 0.9 K/mm3 (0.1-0.6); Monocytes Percent Auto 9.8 % (2.6-8.5); Neutrophils Absolute Auto 7.1 K/mm3 (1.3-6.7); Platelet Count Result 353 k/mm3 (150-375); Red Blood Count 4.44 M/mm3 (4.2-5.4); Red Cell Distribution Width 14.4 % (11.5-14.5); White Blood Count 8.9 K/mm3 (4.5-10.0)
[2024-12-18 04:21] LABS: Alanine Aminotransferase 35 U/L (6-35); Albumin Level 3.3 g/dL (3.5-5.1); Alkaline Phosphatase 192 U/L (38-126); Anion Gap 11 mmol/L (4-12); Aspartate Amino Transferase 31 U/L (14-36); Bilirubin,Total 0.6 mg/dL (0.2-1.3); Blood Urea Nitrogen 28 mg/dL (7-17); Calcium 9.7 mg/dL (8.4-10.2); Carbon Dioxide 26 mmol/L (22-30); Chloride 103 mmol/L (98-107); Estimated CRCL calculation 118 ml/min; Estimated Glomerular Filt Rate > 60; Glucose 134 mg/dL (65-110); Magnesium 1.8 mg/dL (1.6-2.3); Phosphorus 4.5 mg/dL (2.5-4.5); Potassium 4.4 mmol/L (3.4-5.0); Sodium 140 mmol/L (137-145)
[2024-12-18 04:42] LABS: Troponin I 0.369 ng/mL (0.000-0.034)
[2024-12-18] MEDS: PIPERACILLN/TAZ 3.375GM/NS50ML 3.375 GM/50 ML BAG IVPB ×3 (05:39→17:31)
--- NOTE | 2024-12-18 08:45 | PM.IMPN ---
Progress Note: A&P Assessment and Plan (1) Acute hypoxemic respiratory failure: Code(s): J96.01 - Acute respiratory failure with hypoxia Status: Acute Assessment and Plan: Patient presented with shortness of breath and found to be hypoxic requiring up to 3 L nasal cannula. [place] related to aspiration pneumonia. She was weaned to room air but had increasing O2 requirement last evening (12/17) treated with airvo. CXR repeated but remains unchanged. Patient was suctioned with some response. CPT ordered but patient has a very weak cough so doubt the benefit with this treatment. Curerntly on 45L at 55%. Family aware of the severity of the patient's care. She is DNR and family confirms this and would not want the patient on mechanical ventilation Strict NPO. All meds via GTube. Holding TF. Start IV fluids. Wean O2 as tolerated. Bronchodilators. (2) Sepsis: Code(s): A41.9 - Sepsis, unspecified organism Status: Acute Assessment and Plan: Patient presents with shortness of breath and has a weak cough and found to have sepsis. CT of the chest with contrast shows multi segment, bilateral dependent consolidation with surrounding tree-in-bud opacities. She also has a patulous esophagus with fluid. These findings are concerning for bilateral aspiration pneumonia. MRSA nasal swab positive. COVID, RSV and influenza PCR were negative. Lactic acid level was normal but white count elevated and patient febrile. BCx collected and she was started on Zosyn. Doxycycline added for atypical coverage and MRSA colonization. White count normal now and fever resolved. Blood cultures no growth to date. UCx negative. Continue IV antibiotics. Wean O2 as tolerated. (3) Aspiration pneumonia: Code(s): J69.0 - Pneumonitis due to inhalation of food and vomit Status: Acute Assessment and Plan: As above. Elevate head of the bed. Resumed tube feedings as continuous feedings but stopped now Speech therapy felt patient not able to handle oral intake or medications. [place] that her worsening dysphagia related to progression of her MS All meds are via GTube currently. (4) Fecal impaction: Code(s): K56.41 - Fecal impaction Status: Acute Assessment and Plan: The CT scan of the abdomen and pelvis shows the rectum is dilated to 9 cm by form stool with mild wall thickening but no significant surrounding inflammatory changes. She has a dilated, mostly air-filled sigmoid colon but the remainder of the large bowel is decompressed. Large volume of colonic fecal material. BM x2 on 12/15. Repeat Soapsuds enema with some benefit. MiraLax is scheduled but family says this obstructs the tube in the past. Trospium stopped (was used for bladder spasms) Change Miralax to Lactulose. Monitor stool output. 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 Wound care shows that the patient has flaking, maceration and peeling of the skin on areas in the back and bilateral buttock areas. She also has a right elbow stage III pressure ulcer noted. Appropriate wound care has been started. Will hold off on plans for [place] [facility] IV abx. (6) Multiple sclerosis: Code(s): G35 - Multiple sclerosis Status: Acute Assessment and Plan: Patient with chronic MS with seizures. Continue Vimpat, Tegretol. Continue baclofen. Family requesting information about private duty care and careers adviser notified. Also spoke with family about hospice care and all questions answered. (7) Functional quadriplegia secondary to MS: Code(s): G35 - Multiple sclerosis; R53.2 - Functional quadriplegia Status: Acute Assessment and Plan: Appropriate mattress, frequent turning. Plan 1. Code status. DNR 2. VTE prophylaxis. SCDs; EDU 3. Nutrition. NPO; Tube feeds Subjective Date/time seen: 12/18/24 08:45 Interval history: 64yo female with seizures, MS and severe debility here for SOB. Patient had a rapid response last night after she aspirated when laying flat for an xray. She is currently on max Airvo 45L 55%. Family at bedside. Patient is awake but has difficulty providing coherent hx. Review of Systems Review of Systems: ROS unobtainable: Yes unobtainable due to medical condition Exam Narrative: AF 98.1 127/88 111 24 93% HFNC Gen - sitting up right in bed and tachypneic Chest - coarse BS anteriorly. CV - RRR S1/S2. Telemetry showing normal sinus. No further episodes of AFib Abd -soft. Positive bowel sounds. G-tube site is clean, dry and intact. -Nichols secured with clear yellow urine in the bag Ext - no pedal edema Neuro -patient is alert. Mumbled speech. Functional quadriplegic. Skin - Warm and dry. Objective Data Vital Signs Vital Signs: Vital Signs - 24 hr 12/17/24 10:00 12/17/24 11:55 12/17/24 12:00 Temperature 97.3 F L Pulse Rate 79 88 Respiratory Rate 20 Blood Pressure 158/100 H Pulse Oximetry 100 Oxygen Delivery Room Air Oxygen Flow Rate Fraction of Inspired Oxygen 12/17/24 12:00 12/17/24 14:00 12/17/24 16:00 Temperature Pulse Rate 87 98 Respiratory Rate Blood Pressure Pulse Oximetry Oxygen Delivery Room Air Oxygen Flow Rate Fraction of Inspired Oxygen 12/17/24 16:00 12/17/24 16:20 12/17/24 17:00 Temperature 97.8 F Pulse Rate 77 99 Respiratory Rate 18 Blood Pressure 161/99 H Pulse Oximetry 96 94 Oxygen Delivery High Flow Nasal Cannula Oxygen Flow Rate 15 Fraction of Inspired Oxygen 12/17/24 17:06 12/17/24 17:42 12/17/24 18:00 Temperature Pulse Rate 115 H 123 H 109 H Respiratory Rate 24 H 32 H Blood Pressure 137/99 H Pulse Oximetry 97 Oxygen Delivery High Flow Nasal Cannula Oxygen Flow Rate 15 Fraction of Inspired Oxygen 12/17/24 19:01 12/17/24 19:40 12/17/24 19:45 Temperature 98.3 F Pulse Rate 88 Respiratory Rate 18 Blood Pressure 130/90 Pulse Oximetry 94 85 L 86 L Oxygen Delivery High Flow Nasal Cannula High Flow Therapy with Na Oxygen Flow Rate 15 45 Fraction of Inspired Oxygen 90 12/17/24 20:00 12/17/24 20:00 12/17/24 20:00 Temperature Pulse Rate 97 Respiratory Rate Blood Pressure Pulse Oximetry 87 L 91 Oxygen Delivery High Flow Therapy with Na High Flow Therapy with Na Oxygen Flow Rate 15 45 Fraction of Inspired Oxygen 90 12/17/24 20:50 12/17/24 22:00 12/17/24 22:00 Temperature Pulse Rate 105 H Respiratory Rate Blood Pressure Pulse Oximetry 85 L 100 Oxygen Delivery High Flow Therapy with Na Oxygen Flow Rate 50 Fraction of Inspired Oxygen 90 12/17/24 23:00 12/18/24 00:00 12/18/24 00:00 Temperature 97.7 F Pulse Rate 105 H Respiratory Rate 26 H Blood Pressure 125/84 Pulse Oximetry 97 100 99 Oxygen Delivery High Flow Therapy with Na High Flow Therapy with Na Oxygen Flow Rate 45 50 Fraction of Inspired Oxygen 80 80 12/18/24 00:00 12/18/24 01:45 12/18/24 02:00 Temperature Pulse Rate 104 H 106 H Respiratory Rate Blood Pressure Pulse Oximetry 97 Oxygen Delivery High Flow Therapy with Na Oxygen Flow Rate 45 Fraction of Inspired Oxygen 70 12/18/24 02:04 12/18/24 04:00 12/18/24 04:00 Temperature Pulse Rate 109 H Respiratory Rate Blood Pressure Pulse Oximetry 98 98 Oxygen Delivery High Flow Therapy with Na High Flow Therapy with Na Oxygen Flow Rate 45 45 Fraction of Inspired Oxygen 65 65 12/18/24 04:20 12/18/24 04:50 12/18/24 04:53 Temperature 98.2 F Pulse Rate 108 H Respiratory Rate 22 H Blood Pressure 115/94 H Pulse Oximetry 99 96 97 Oxygen Delivery High Flow Therapy with Na High Flow Therapy with Na Oxygen Flow Rate 45 45 Fraction of Inspired Oxygen 55 55 12/18/24 06:00 12/18/24 07:26 12/18/24 07:38 Temperature 98.1 F Pulse Rate 106 H 111 H Respiratory Rate 24 H Blood Pressure 127/88 Pulse Oximetry 96 93 Oxygen Delivery High Flow Therapy with Na Oxygen Flow Rate 45 Fraction of Inspired Oxygen 55 Intake/Output Intake/Output: Intake & Output 12/15/24 12/16/24 12/17/24 12/18/24 23:59 23:59 23:59 23:59 Intake Total 1400 2742 1268 50 Output Total 1850 2250 1250 1100 Balance -450 492 18 -1050 Meds/Results Medications: Active Medications Generic Name Dose Route Start Last Admin Trade Name Freq PRN Reason Stop Dose Admin Acetaminophen 650 mg 12/14/24 23:40 12/17/24 13:10 Acetaminophen 325 Mg Tablet FEED TUBE 650 mg Q4H PRN Administration Mild Pain (1-3) or Fever Albuterol/Ipratropium 3 ml 12/14/24 23:40 Ipratropium 0.5 Mg/Albuterol Sulfate 2.5 Mg Ampul.Neb 3 Ml INHALATION Q4HRT PRN shortness of breath/Wheezing Amantadine HCl 100 mg 12/15/24 11:00 12/18/24 02:03 Amantadine Hcl 100 Mg Capsule FEED TUBE Not Given 0600,1100 [facility] Baclofen 10 mg 12/15/24 11:00 12/17/24 20:13 Baclofen 10 Mg Tablet FEED TUBE Not Given 0800,1100,1400,1700,2000 [facility] Carbamazepine 100 mg 12/15/24 12:00 12/18/24 02:03 Carbamazepine Chew 100 Mg Chew FEED TUBE Not Given Q6HR EDU Clopidogrel Bisulfate 300 mg 12/18/24 08:42 Clopidogrel Bisulfate 300 Mg Tablet FEED TUBE 12/18/24 08:43 ONCE ONE Clopidogrel Bisulfate 75 mg 12/19/24 09:00 Clopidogrel Bisulfate 75 Mg Tablet FEED TUBE QAM EDU Guaifenesin/Dextromethorphan 10 ml 12/14/24 23:40 Guaifenesin/Dextromethorphan 10 Ml Udc FEED TUBE Q4H PRN Cough Heparin Sodium (Porcine) 5,000 units 12/15/24 09:00 12/17/24 21:13 Heparin Sodium 5,000 Units/Ml Vial SUB-Q 5,000 units Q12HR EDU Administration Piperacillin/Tazobactam/Dextrose 3.375 gm in 50 mls @ 100 mls/hr 12/15/24 00:00 12/18/24 05:39 Zosyn 3.375 Gm/Ns 50 Ml IVPB 100 mls/hr Q6HR EDU Administration Doxycycline Hyclate 100 mg in 100 mls @ 100 mls/hr 12/15/24 11:25 12/17/24 22:13 Vibramycin 100 Mg/Ns 100 Ml IVPB Infused Q12HR [facility] Infusion Lacosamide 50 mg 12/14/24 23:45 12/17/24 18:17 Lacosamide (*Crx) 50 Mg Tablet FEED TUBE Not Given BID EDU Melatonin 5 mg 12/14/24 23:40 Melatonin 5 Mg Tablet FEED TUBE HS PRN Insomnia Prochlorperazine Edisylate 10 mg 12/14/24 23:40 Prochlorperazine Edisylate 10 Mg/2 Ml Vial IV PUSH Q6H PRN Nausea And Vomiting Venlafaxine HCl 25 mg 12/17/24 17:00 12/17/24 18:17 Venlafaxine Hcl 25 Mg Tablet FEED TUBE Not Given BIDWM [facility] Radiology Results: ITS Impressions Chest/Abdomen/Pelvis CT 12/14/24 20:14 IMPRESSION: Bilateral aspiration pneumonia. Fecal impaction, with mild wall thickening and dilation of the sigmoid colon. Early stercoral colitis is not excluded. Likely cystitis. Chronic right pubic symphysis osteomyelitis. Possible bilateral ishcial decubitus ulcers. Abdomen X-Ray 12/17/24 16:44 IMPRESSION: 1. Large volume of stool in the colon with distention of the rectum. 2. Airspace opacities in the lower lung zones, consistent with pneumonia. Chest X-Ray 12/18/24 07:17 IMPRESSION: 1. Unchanged opacities in the mid and lower and left lower lung zones consistent with pneumonia. Labs Labs: Laboratory Results - last 24 hr 12/17/24 12/17/24 12/17/24 17:03 17:34 17:35 WBC 8.3 RBC 4.53 Hgb 12.6 Hct 41.3 MCV 91.2 MCH 27.8 MCHC 30.5 L RDW 14.6 H Plt Count 326 MPV 10.0 Immature Gran % (Auto) 1.1 H Neut % (Auto) 66.6 Lymph % (Auto) 14.9 L [place] % (Auto) 13.9 H Eos % (Auto) 2.9 Baso % (Auto) 0.6 Lymph # (Auto) 1.24 [place] # (Auto) 1.2 H Eos # (Auto) 0.2 Baso # (Auto) 0.1 Abs Immat Gran (auto) 0.09 H Absolute Neuts (auto) 5.5 Absolute Nucleated RBC 0.000 Band Neutrophils % Not Reportable Nucleated RBC % 0.0 Platelet Estimate Adequate % Immature Plt Fraction 2.5 Schistocytes None seen PT 13.2 INR 1.0 APTT 31.5 Puncture Site Right radial ABG pH 7.318 L ABG pCO2 46.7 H ABG pO2 85.1 ABG PO2/FiO2 Ratio 1.06 ABG HCO3 23.4 ABG O2 Saturation 95.6 ABG O2 Content 17.9 ABG Base Excess -2.9 A-a Gradient 436.3 Oxyhemoglobin 95.2 Carboxyhemoglobin 0.3 Methemoglobin 0.2 Reduced Hemoglobin 4.3 Total Hemoglobin 13.3 O2 Delivery Device High flow nasal florentino O2 Liters/Min 15.0 FiO2 80 Sodium 137 Potassium 4.8 Chloride 106 Carbon Dioxide 21 L Anion Gap 10 BUN 24 H Creatinine 0.40 L Estim Creat Clear Calc 115 Estimated GFR > 60 Glucose 135 H Lactic Acid 3.2 H Calcium 9.6 Phosphorus 3.5 Magnesium 1.7 Total Bilirubin 0.5 AST 25 ALT 30 Alkaline Phosphatase 180 H Troponin I 0.026 C-Reactive Protein 19.9 H NT-Pro-B Natriuret Pep 922 H Total Protein 7.0 Albumin 3.2 L Procalcitonin 0.2 12/17/24 12/17/24 12/17/24 20:21 21:00 23:39 WBC RBC Hgb Hct MCV MCH MCHC RDW Plt Count MPV Immature Gran % (Auto) Neut % (Auto) Lymph % (Auto) [place] % (Auto) Eos % (Auto) Baso % (Auto) Lymph # (Auto) [place] # (Auto) Eos # (Auto) Baso # (Auto) Abs Immat Gran (auto) Absolute Neuts (auto) Absolute Nucleated RBC Band Neutrophils % Nucleated RBC % Platelet Estimate % Immature Plt Fraction Schistocytes PT INR APTT Puncture Site ABG pH ABG pCO2 ABG pO2 ABG PO2/FiO2 Ratio ABG HCO3 ABG O2 Saturation ABG O2 Content ABG Base Excess A-a Gradient Oxyhemoglobin Carboxyhemoglobin Methemoglobin Reduced Hemoglobin Total Hemoglobin O2 Delivery Device O2 Liters/Min FiO2 Sodium Potassium Chloride Carbon Dioxide Anion Gap BUN Creatinine Estim Creat Clear Calc Estimated GFR Glucose Lactic Acid 1.8 1.4 Calcium Phosphorus Magnesium Total Bilirubin AST ALT Alkaline Phosphatase Troponin I 0.297 H* D 0.375 H* D C-Reactive Protein NT-Pro-B Natriuret Pep Total Protein Albumin Procalcitonin 12/18/24 04:00 WBC 8.9 RBC 4.44 Hgb 12.5 Hct 39.0 MCV 87.8 MCH 28.2 MCHC 32.1 RDW 14.4 Plt Count 353 MPV 9.7 Immature Gran % (Auto) 0.7 H Neut % (Auto) 80.0 H Lymph % (Auto) 8.9 L [place] % (Auto) 9.8 H Eos % (Auto) 0.2 Baso % (Auto) 0.4 Lymph # (Auto) 0.79 L [place] # (Auto) 0.9 H Eos # (Auto) 0.0 Baso # (Auto) 0.0 Abs Immat Gran (auto) 0.06 H Absolute Neuts (auto) 7.1 H Absolute Nucleated RBC 0.000 Band Neutrophils % Nucleated RBC % 0.0 Platelet Estimate % Immature Plt Fraction Schistocytes PT INR APTT Puncture Site ABG pH ABG pCO2 ABG pO2 ABG PO2/FiO2 Ratio ABG HCO3 ABG O2 Saturation ABG O2 Content ABG Base Excess A-a Gradient Oxyhemoglobin Carboxyhemoglobin Methemoglobin Reduced Hemoglobin Total Hemoglobin O2 Delivery Device O2 Liters/Min FiO2 Sodium 140 Potassium 4.4 Chloride 103 Carbon Dioxide 26 Anion Gap 11 BUN 28 H Creatinine 0.39 L Estim Creat Clear Calc 118 Estimated GFR > 60 Glucose 134 H Lactic Acid Calcium 9.7 Phosphorus 4.5 Magnesium 1.8 Total Bilirubin 0.6 AST 31 ALT 35 Alkaline Phosphatase 192 H Troponin I 0.369 H* C-Reactive Protein NT-Pro-B Natriuret Pep Total Protein 8.0 Albumin 3.3 L Procalcitonin
[2024-12-18] MEDS: DOXYCYCLINE 100 MG/NS 100 ML 100 MG/100 ML BAG IVPB ×2 (09:50→21:33)
[2024-12-18] MEDS: polyethylene glycoL 3350 17 GM POWD.PACK FEED TUBE (11:54)
[2024-12-18] MEDS: AMANTADINE HCL 100 MG CAPSULE FEED TUBE (11:55)
[2024-12-18] MEDS: BACLOFEN 10 MG TABLET FEED TUBE ×3 (11:55→21:33)
[2024-12-18] MEDS: HEPARIN SODIUM 5,000 UNITS/ML VIAL 5000 UNITS SUB-Q ×2 (11:55→21:32)
[2024-12-18] MEDS: VENLAFAXINE HCL 25 MG TABLET FEED TUBE ×2 (11:55→17:31)
[2024-12-18] MEDS: LACOSAMIDE (*CRX) 50 MG TABLET FEED TUBE ×2 (11:55→17:31)
[2024-12-18] MEDS: CLOPIDOGREL BISULFATE 300 MG TABLET FEED TUBE (12:01)
[2024-12-18] MEDS: LEVALBUTEROL NEB 1.25 MG/3 ML INHALATION ×2 (14:54→20:10)
[2024-12-18] MEDS: DEXTROSE 5%/0.9% SOD CHL 1,000 ML 70 ML IV CONT (17:30)
[2024-12-18] MEDS: LACTULOSE 20 GM/30 ML UDC FEED TUBE (17:31)
[2024-12-18] MEDS: BISACODYL 10 MG SUPPOSITORY RECTAL (18:49)
[2024-12-18] MEDS: PROCHLORPERAZINE EDISYLATE 10 MG/2 ML VIAL IV PUSH (19:52)
[2024-12-19] VITALS (27 sets, daily range): BP systolic 115–137; BP diastolic 69–90; PULSE 94–110; RESP 12–24; TEMP 36.3–37.4; O2SAT 92–97
[2024-12-19] MEDS: PIPERACILLN/TAZ 3.375GM/NS50ML 3.375 GM/50 ML BAG IVPB ×5 (00:44→23:06)
[2024-12-19] MEDS: LEVALBUTEROL NEB 1.25 MG/3 ML INHALATION ×4 (02:05→20:45)
[2024-12-19 05:50] LABS: Basophils Percent Auto 0.5 % (0.2-1.2); Eosinophils Percent Auto 0.2 % (0-4.4); Hematocrit 32.7 % (37.0-47.0); Hemoglobin 10.3 g/dL (12.0-15.0); Immature Granulocyte Absolute 0.06 K/mm3 (0.00-0.031); Immature Granulocyte Percent A 0.7 % (0-0.5); Lymphocytes Absolute Auto 1.41 K/mm3 (0.9-3.2); Lymphocytes Percent Auto 17.1 % (18.3-44.2); Mean Corpuscular HGB Conc 31.5 g/dl (32-36); Mean Corpuscular Hemoglobin 28.5 pg (26-34); Mean Corpuscular Volume 90.6 fl (80-100); Mean Platelet Volume 10.1 fl (7.4-10.4); Monocytes Absolute Auto 1.3 K/mm3 (0.1-0.6); Monocytes Percent Auto 15.7 % (2.6-8.5); Neutrophils Absolute Auto 5.4 K/mm3 (1.3-6.7); Neutrophils Percent Auto 65.8 % (45.5-73.1); Platelet Count Result 312 k/mm3 (150-375); Red Blood Count 3.61 M/mm3 (4.2-5.4); Red Cell Distribution Width 14.9 % (11.5-14.5); White Blood Count 8.2 K/mm3 (4.5-10.0)
[2024-12-19] MEDS: AMANTADINE HCL 100 MG CAPSULE FEED TUBE ×2 (05:51→11:42)
[2024-12-19 05:59] LABS: Alanine Aminotransferase 30 U/L (6-35); Albumin Level 2.8 g/dL (3.5-5.1); Alkaline Phosphatase 157 U/L (38-126); Anion Gap 10 mmol/L (4-12); Aspartate Amino Transferase 31 U/L (14-36); Bilirubin,Total 0.5 mg/dL (0.2-1.3); Blood Urea Nitrogen 29 mg/dL (7-17); Calcium 8.6 mg/dL (8.4-10.2); Carbon Dioxide 26 mmol/L (22-30); Chloride 105 mmol/L (98-107); Estimated CRCL calculation 95 ml/min; Estimated Glomerular Filt Rate > 60; Glucose 127 mg/dL (65-110); Potassium 3.1 mmol/L (3.4-5.0); Sodium 141 mmol/L (137-145)
--- NOTE | 2024-12-19 08:33 | P.PNIM_ITS ---
Progress Note: A&P Assessment and Plan (1) Acute hypoxemic respiratory failure: Code(s): J96.01 - Acute respiratory failure with hypoxia Status: Acute Assessment and Plan: Patient presented with SOB and found to be hypoxic requiring up to 3 L nasal cannula felt related to aspiration PNA. She was weaned to room air but had increasing O2 requirement in the evening of 12/17 treated with airvo. CXR was repeated but remained unchanged. Patient was suctioned with some response. CPT ordered but patient has a very weak cough so doubt the benefit with this treatment. Currently settings worse on 50L at 70%. Family aware of the severity of the patient's care. Patient remains a DNR and family confirms this and would not want the patient on mechanical ventilation Strict NPO. All meds via GTube. Continue to hold TF. Continue IV fluids. Wean O2 as tolerated. Continue bronchodilators. (2) Sepsis: Code(s): A41.9 - Sepsis, unspecified organism Status: Acute Assessment and Plan: Patient presents with shortness of breath and has a weak cough and found to have sepsis. CT of the chest with contrast shows multi segment, bilateral dependent consolidation with surrounding tree-in-bud opacities. She also has a patulous esophagus with fluid. These findings are concerning for bilateral aspiration pneumonia. MRSA nasal swab positive. COVID, RSV and influenza PCR were negative. Lactic acid level was normal but white count elevated and patient febrile. Started on Zosyn and Doxycycline added for atypical coverage and MRSA colonization. White count normal now and fever resolved. Blood cultures no growth to date. UCx negative. Continue IV antibiotics. Wean O2 as tolerated. (3) Aspiration pneumonia: Code(s): J69.0 - Pneumonitis due to inhalation of food and vomit Status: Acute Assessment and Plan: As above. Elevate head of the bed. Resumed tube feedings as continuous feedings but stopped now Before patient decompensated, Speech therapy evaluation was performed and felt patient not able to handle oral intake or medications. Caro that her worsening dysphagia related to progression of her MS All meds are via GTube currently. No plans for any oral intake or oral meds (4) Fecal impaction: Code(s): K56.41 - Fecal impaction Status: Acute Assessment and Plan: The CT scan of the abdomen and pelvis shows the rectum is dilated to 9 cm by form stool with mild wall thickening but no significant surrounding inflammatory changes. She has a dilated, mostly air-filled sigmoid colon but the remainder of the large bowel is decompressed. Large volume of colonic fecal material. BM x2 on 12/15 but only smears since. MiraLax was scheduled but family says this obstructs the Gtube in the past. Trospium stopped (was used for bladder spasms) Changed Miralax to Lactulose. Monitor stool output. 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 Wound care shows that the patient has flaking, maceration and peeling of the skin on areas in the back and bilateral buttock areas. She also has a right elbow stage III pressure ulcer noted. Appropriate wound care has been started. Will hold off on plans for nursing home IV abx. (6) Multiple sclerosis: Code(s): G35 - Multiple sclerosis Status: Acute Assessment and Plan: Patient with chronic MS with seizures. Continue Vimpat, Tegretol. Continue baclofen. Family requesting information about private duty care and critical care rn notified. Also spoke with family about hospice care at various times and all questions answered. 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 Plan 1. Code status. DNR 2. VTE prophylaxis. SCDs; EDU 3. Nutrition. NPO; Tube feeds on hold Subjective Date/time seen: 12/19/24 08:33 Interval history: 64yo female with seizures, MS and severe debility here for SOB. Patient alert but mostly nonverbal with only occasional whispered answer. She leblanc s not required suctioning. Oxygen requirement worse at 50L 70%. Review of Systems Review of Systems: ROS unobtainable: Yes unobtainable due to mental status Exam Narrative: AF 97.4 135/90 98 14 96% HFNC Gen - sitting up right in bed Chest - coarse BS anteriorly. CV - RRR S1/S2. Telemetry showing normal sinus Abd -soft. Positive bowel sounds. G-tube site is clean, dry and intact. -Nichols secured with dark yellow urine in the bag Ext - no pedal edema Neuro -patient is awake. Mumbled speech. Functional quadriplegic. Skin - Warm and dry. Objective Data Vital Signs Vital Signs: Vital Signs - 24 hr 12/18/24 10:00 12/18/24 11:44 12/18/24 12:00 Temperature 97.4 F L Pulse Rate 110 H 113 H Respiratory Rate 24 H Blood Pressure 133/97 H Pulse Oximetry 97 97 Oxygen Delivery High Flow Therapy with Na Oxygen Flow Rate 45 Fraction of Inspired Oxygen 55 12/18/24 12:00 12/18/24 14:00 12/18/24 14:57 Temperature Pulse Rate 111 H 114 H 109 H Respiratory Rate 18 Blood Pressure Pulse Oximetry Oxygen Delivery Oxygen Flow Rate Fraction of Inspired Oxygen 12/18/24 15:04 12/18/24 15:49 12/18/24 16:00 Temperature 98.1 F Pulse Rate 112 H 110 H Respiratory Rate 18 25 H Blood Pressure 134/92 H Pulse Oximetry 98 96 Oxygen Delivery High Flow Therapy with Na Oxygen Flow Rate 45 Fraction of Inspired Oxygen 55 12/18/24 18:00 12/18/24 19:03 12/18/24 20:00 Temperature 98 F Pulse Rate 109 H 112 H 109 H Respiratory Rate 22 H Blood Pressure 135/87 Pulse Oximetry 99 Oxygen Delivery Oxygen Flow Rate Fraction of Inspired Oxygen 12/18/24 20:00 12/18/24 20:00 12/18/24 20:10 Temperature Pulse Rate 110 H Respiratory Rate Blood Pressure Pulse Oximetry 93 94 Oxygen Delivery High Flow Therapy with Na High Flow Therapy with Na Oxygen Flow Rate 45 45 Fraction of Inspired Oxygen 55 55 12/18/24 20:10 12/18/24 20:19 12/18/24 22:00 Temperature Pulse Rate 107 H 111 H 106 H Respiratory Rate 16 16 Blood Pressure Pulse Oximetry Oxygen Delivery Oxygen Flow Rate Fraction of Inspired Oxygen 12/19/24 00:00 12/19/24 00:00 12/19/24 00:45 Temperature 98 F Pulse Rate 102 H 101 H Respiratory Rate 22 H Blood Pressure 115/69 Pulse Oximetry 95 94 Oxygen Delivery High Flow Therapy with Na Oxygen Flow Rate 45 Fraction of Inspired Oxygen 55 12/19/24 02:00 12/19/24 02:05 12/19/24 02:13 Temperature Pulse Rate 99 98 103 H Respiratory Rate 20 20 Blood Pressure Pulse Oximetry Oxygen Delivery Oxygen Flow Rate Fraction of Inspired Oxygen 12/19/24 02:17 12/19/24 04:00 12/19/24 04:00 Temperature 98.3 F Pulse Rate 98 Respiratory Rate 24 H Blood Pressure 133/87 Pulse Oximetry 92 95 96 Oxygen Delivery High Flow Therapy with Na High Flow Therapy with Na Oxygen Flow Rate 50 50 Fraction of Inspired Oxygen 72 72 12/19/24 04:00 12/19/24 06:00 12/19/24 07:23 Temperature Pulse Rate 95 96 Respiratory Rate Blood Pressure Pulse Oximetry 95 Oxygen Delivery High Flow Therapy with Na Oxygen Flow Rate 50 Fraction of Inspired Oxygen 60 12/19/24 07:23 12/19/24 07:35 12/19/24 08:00 Temperature 97.4 F L Pulse Rate 96 98 98 Respiratory Rate 18 18 14 Blood Pressure 135/90 Pulse Oximetry 96 Oxygen Delivery Oxygen Flow Rate Fraction of Inspired Oxygen Intake/Output Intake/Output: Intake & Output 12/16/24 12/17/24 12/18/24 12/19/24 23:59 23:59 23:59 23:59 Intake Total 2742 1268 300 350 Output Total 2250 1250 1700 350 Balance 492 18 -1400 0 Meds/Results Medications: Active Medications Generic Name Dose Route Start Last Admin Trade Name Freq PRN Reason Stop Dose Admin Acetaminophen 650 mg 12/14/24 23:40 12/17/24 13:10 Acetaminophen 325 Mg Tablet FEED TUBE 650 mg Q4H PRN Administration Mild Pain (1-3) or Fever Albuterol/Ipratropium 3 ml 12/14/24 23:40 Ipratropium 0.5 Mg/Albuterol Sulfate 2.5 Mg Ampul.Neb 3 Ml INHALATION Q4HRT PRN shortness of breath/Wheezing Amantadine HCl 100 mg 12/15/24 11:00 12/19/24 05:51 Amantadine Hcl 100 Mg Capsule FEED TUBE 100 mg 0600,1100 EDU Administration Baclofen 10 mg 12/15/24 11:00 12/18/24 21:33 Baclofen 10 Mg Tablet FEED TUBE 10 mg 0800,1100,1400,1700,2000 EDU Administration Bisacodyl 10 mg 12/18/24 09:00 12/18/24 18:49 Bisacodyl 10 Mg Suppository RECTAL 12/20/24 09:01 10 mg QAM EDU Administration Carbamazepine 100 mg 12/15/24 12:00 12/19/24 05:51 Carbamazepine Chew 100 Mg Chew FEED TUBE 100 mg Q6HR EDU Administration Clopidogrel Bisulfate 75 mg 12/19/24 09:00 Clopidogrel Bisulfate 75 Mg Tablet FEED TUBE QAM EDU Guaifenesin/Dextromethorphan 10 ml 12/14/24 23:40 Guaifenesin/Dextromethorphan 10 Ml Udc FEED TUBE Q4H PRN Cough Heparin Sodium (Porcine) 5,000 units 12/15/24 09:00 12/18/24 21:32 Heparin Sodium 5,000 Units/Ml Vial SUB-Q 5,000 units Q12HR EDU Administration Piperacillin/Tazobactam/Dextrose 3.375 gm in 50 mls @ 100 mls/hr 12/15/24 00:00 12/19/24 05:51 Zosyn 3.375 Gm/Ns 50 Ml IVPB 100 mls/hr Q6HR EDU Administration Doxycycline Hyclate 100 mg in 100 mls @ 100 mls/hr 12/15/24 11:25 12/18/24 21:33 Vibramycin 100 Mg/Ns 100 Ml IVPB 100 mls/hr Q12HR EDU Administration Dextrose/Sodium Chloride 1,000 mls @ 70 mls/hr 12/18/24 14:40 12/18/24 17:30 Dextrose 5% Sodium Chloride 0.9% IV CONT 70 mls/hr .[id number] EDU Administration Lacosamide 50 mg 12/14/24 23:45 12/18/24 17:31 Lacosamide (*Crx) 50 Mg Tablet FEED TUBE 50 mg BID EDU Administration Lactulose 20 gm 12/18/24 17:00 12/18/24 17:31 Lactulose 20 Gm/30 Ml Udc FEED TUBE 20 gm BID EDU Administration Levalbuterol HCl 1.25 mg 12/18/24 20:00 12/19/24 07:23 Levalbuterol Neb 1.25 Mg/3 Ml INHALATION 1.25 mg Q6HRT EDU Administration Melatonin 5 mg 12/14/24 23:40 Melatonin 5 Mg Tablet FEED TUBE HS PRN Insomnia Prochlorperazine Edisylate 10 mg 12/14/24 23:40 12/18/24 19:52 Prochlorperazine Edisylate 10 Mg/2 Ml Vial IV PUSH 10 mg Q6H PRN Administration Nausea And Vomiting Venlafaxine HCl 25 mg 12/17/24 17:00 12/18/24 17:31 Venlafaxine Hcl 25 Mg Tablet FEED TUBE 25 mg BIDWM EDU Administration Radiology Results: ITS Impressions Chest/Abdomen/Pelvis CT 12/14/24 20:14 IMPRESSION: Bilateral aspiration pneumonia. Fecal impaction, with mild wall thickening and dilation of the sigmoid colon. Early stercoral colitis is not excluded. Likely cystitis. Chronic right pubic symphysis osteomyelitis. Possible bilateral ishcial decubitus ulcers. Abdomen X-Ray 12/17/24 16:44 IMPRESSION: 1. Large volume of stool in the colon with distention of the rectum. 2. Airspace opacities in the lower lung zones, consistent with pneumonia. Chest X-Ray 12/19/24 06:33 Impression: Patchy bilateral airspace disease, worse the right lung base, unchanged from prior exam. Findings suggest bilateral pneumonia. Labs Labs: Laboratory Results - last 24 hr 12/19/24 04:44 WBC 8.2 RBC 3.61 L Hgb 10.3 L Hct 32.7 L MCV 90.6 MCH 28.5 MCHC 31.5 L RDW 14.9 H Plt Count 312 MPV 10.1 Immature Gran % (Auto) 0.7 H Neut % (Auto) 65.8 Lymph % (Auto) 17.1 L [place] % (Auto) 15.7 H Eos % (Auto) 0.2 Baso % (Auto) 0.5 Lymph # (Auto) 1.41 [place] # (Auto) 1.3 H Eos # (Auto) 0.0 Baso # (Auto) 0.0 Abs Immat Gran (auto) 0.06 H Absolute Neuts (auto) 5.4 Absolute Nucleated RBC 0.000 Nucleated RBC % 0.0 Sodium 141 Potassium 3.1 L Chloride 105 Carbon Dioxide 26 Anion Gap 10 BUN 29 H Creatinine 0.50 L Estim Creat Clear Calc 95 Estimated GFR > 60 Glucose 127 H Calcium 8.6 Total Bilirubin 0.5 AST 31 ALT 30 Alkaline Phosphatase 157 H Total Protein 7.0 Albumin 2.8 L
[2024-12-19 09:15] LABS: Magnesium 1.8 mg/dL (1.6-2.3)
[2024-12-19] MEDS: LACTULOSE 20 GM/30 ML UDC FEED TUBE ×2 (09:31→17:36)
[2024-12-19] MEDS: DOXYCYCLINE 100 MG/NS 100 ML 100 MG/100 ML BAG IVPB ×2 (09:31→20:14)
[2024-12-19] MEDS: HEPARIN SODIUM 5,000 UNITS/ML VIAL 5000 UNITS SUB-Q ×2 (09:32→20:14)
[2024-12-19] MEDS: LACOSAMIDE (*CRX) 50 MG TABLET FEED TUBE ×2 (09:33→17:37)
[2024-12-19] MEDS: POTASSIUM CHLORIDE 20 MEQ PACKET (FOR LIQUID) 40 MEQ FEED TUBE (09:33)
[2024-12-19] MEDS: BISACODYL 10 MG SUPPOSITORY RECTAL (09:33)
[2024-12-19] MEDS: CLOPIDOGREL BISULFATE 75 MG TABLET FEED TUBE (09:33)
[2024-12-19] MEDS: VENLAFAXINE HCL 25 MG TABLET FEED TUBE ×2 (09:33→17:36)
[2024-12-19] MEDS: BACLOFEN 10 MG TABLET FEED TUBE ×4 (09:37→20:14)
[2024-12-19] MEDS: DEXTROSE 5%/0.9% SOD CHL 1,000 ML 70 ML IV CONT (11:41)
[2024-12-19] MEDS: MAGNESIUM SULF 2 GM/WATER 50ML 2 GM/50 ML BAG IVPB (18:16)
[2024-12-20] VITALS (31 sets, daily range): BP systolic 134–144; BP diastolic 84–98; PULSE 95–104; RESP 14–20; TEMP 36.1–37.9; O2SAT 96–100
[2024-12-20] MEDS: LEVALBUTEROL NEB 1.25 MG/3 ML INHALATION ×4 (02:38→21:01)
[2024-12-20 04:45] LABS: Basophils Percent Auto 0.3 % (0.2-1.2); Eosinophils Percent Auto 0.3 % (0-4.4); Hematocrit 30.8 % (37.0-47.0); Hemoglobin 9.5 g/dL (12.0-15.0); Immature Granulocyte Absolute 0.06 K/mm3 (0.00-0.031); Immature Granulocyte Percent A 0.7 % (0-0.5); Lymphocytes Absolute Auto 1.37 K/mm3 (0.9-3.2); Lymphocytes Percent Auto 15.3 % (18.3-44.2); Mean Corpuscular HGB Conc 30.8 g/dl (32-36); Mean Corpuscular Hemoglobin 27.9 pg (26-34); Mean Corpuscular Volume 90.6 fl (80-100); Mean Platelet Volume 10.2 fl (7.4-10.4); Monocytes Absolute Auto 1.1 K/mm3 (0.1-0.6); Monocytes Percent Auto 12.4 % (2.6-8.5); Neutrophils Absolute Auto 6.3 K/mm3 (1.3-6.7); Platelet Count Result 247 k/mm3 (150-375); Red Cell Distribution Width 15.2 % (11.5-14.5); White Blood Count 8.9 K/mm3 (4.5-10.0)
[2024-12-20] MEDS: DEXTROSE 5%/0.9% SOD CHL 1,000 ML 70 ML IV CONT (05:26)
[2024-12-20] MEDS: PIPERACILLN/TAZ 3.375GM/NS50ML 3.375 GM/50 ML BAG IVPB ×4 (05:26→23:32)
[2024-12-20] MEDS: AMANTADINE HCL 100 MG CAPSULE FEED TUBE ×2 (05:27→12:43)
[2024-12-20 07:25] LABS: Alanine Aminotransferase 28 U/L (6-35); Albumin Level 2.6 g/dL (3.5-5.1); Alkaline Phosphatase 164 U/L (38-126); Anion Gap 10 mmol/L (4-12); Aspartate Amino Transferase 31 U/L (14-36); Bilirubin,Total 0.6 mg/dL (0.2-1.3); Blood Urea Nitrogen 21 mg/dL (7-17); Calcium 8.4 mg/dL (8.4-10.2); Carbon Dioxide 24 mmol/L (22-30); Chloride 108 mmol/L (98-107); Estimated CRCL calculation 95 ml/min; Estimated Glomerular Filt Rate > 60; Glucose 113 mg/dL (65-110); Magnesium 2.4 mg/dL (1.6-2.3); Potassium 3.3 mmol/L (3.4-5.0); Sodium 142 mmol/L (137-145)
--- NOTE | 2024-12-20 08:58 | PM.IMPN ---
Progress Note: A&P Assessment and Plan (1) Acute hypoxemic respiratory failure: Code(s): J96.01 - Acute respiratory failure with hypoxia Status: Acute Assessment and Plan: Patient presented with SOB and found to be hypoxic requiring up to 3 L nasal cannula felt related to aspiration PNA. She was weaned to room air but had increasing O2 requirement in the evening of 12/17 treated with airvo. CXR was repeated but remained unchanged. Patient was suctioned with some response. She required high AirVo settings; family aware of the severity of the patient's care and confirmed DNR status CPT ordered but patient has a very weak cough so doubt the benefit with this treatment. Airvo better at 30L at 35%. Strict NPO. All meds via GTube. Continue to hold TF given the exam findings. Continue IV fluids. Wean O2 as tolerated. Continue bronchodilators. (2) Sepsis: Code(s): A41.9 - Sepsis, unspecified organism Status: Acute Assessment and Plan: Patient presents with shortness of breath and has a weak cough and found to have sepsis. CT of the chest with contrast shows multi segment, bilateral dependent consolidation with surrounding tree-in-bud opacities. She also has a patulous esophagus with fluid. These findings are concerning for bilateral aspiration pneumonia. MRSA nasal swab positive. COVID, RSV and influenza PCR were negative. Lactic acid level was normal but white count elevated and patient febrile. Started on Zosyn and Doxycycline added for atypical coverage and MRSA colonization. White count normal now and fever resolved. Blood cultures negative. UCx negative. Continue IV antibiotics. Wean O2 as tolerated. Change to oral when able to tolerate TF. (3) Aspiration pneumonia: Code(s): J69.0 - Pneumonitis due to inhalation of food and vomit Status: Acute Assessment and Plan: As above. Elevate head of the bed. Resumed tube feedings as continuous feedings but stopped now Before patient decompensated, Speech therapy evaluation was performed and felt patient not able to handle oral intake or medications. [place] that her worsening dysphagia related to progression of her MS All meds are via GTube currently. No plans for any oral intake or oral meds (4) Fecal impaction: Code(s): K56.41 - Fecal impaction Status: Acute Assessment and Plan: CT scan of the abdomen and pelvis shows the rectum is dilated to 9 cm by form stool with mild wall thickening but no significant surrounding inflammatory changes. She has a dilated, mostly air-filled sigmoid colon but the remainder of the large bowel is decompressed. Large volume of colonic fecal material. BM x2 on 12/15 and 1 on 12/19 but only smears otherwise Family states that MiraLax obstructs the Gtube so she was changed to Lactulose. Trospium stopped (was used for bladder spasms) Tympanitic now. Ileus? Bloating from high flow O2 and/or Lactulose? Try to obtain KUB without laying patient flat or any other disruptions that may worsen her respiratory status. Monitor stool output. 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 Wound care shows that the patient has flaking, maceration and peeling of the skin on areas in the back and bilateral buttock areas. She also has a right elbow stage III pressure ulcer noted. Appropriate wound care has been started. Will hold off on plans for [facility] IV abx. (6) Multiple sclerosis: Code(s): G35 - Multiple sclerosis Status: Acute Assessment and Plan: Patient with chronic MS with seizures. Continue Vimpat, Tegretol. Continue baclofen. Family requesting information about private duty care and lawn care professional notified. Also spoke with family about hospice care at various times and all questions answered. 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 Plan 1. Code status. DNR 2. VTE prophylaxis. SCDs; EDU 3. Nutrition. NPO; Tube feeds on hold Subjective Date/time seen: 12/20/24 08:58 Interval history: 64yo female with seizures, MS and severe debility here for SOB. Patient arouses but unable provide history. She is down to 30 L at 35%. Review of Systems Review of Systems: ROS unobtainable: Yes unobtainable due to mental status Exam Narrative: AF 99.5 137/92 104 20 97% HFNC Gen - sitting up right in bed Chest - BS less coarse today. CV - RRR S1/S2. Telemetry showing no significant dysrhythmias Abd - soft, +BS, protuberant and tympanitic. G-tube site is clean, dry and intact. -Nichols secured with clear yellow urine in the bag Ext - no pedal edema Neuro -patient arouses easily. Mumbled speech. Functional quadriplegic. Skin - Warm and dry. Objective Data Vital Signs Vital Signs: Vital Signs - 24 hr 12/19/24 10:00 12/19/24 11:46 12/19/24 12:00 Temperature 98.3 F Pulse Rate 96 106 H Respiratory Rate 12 Blood Pressure 131/85 Pulse Oximetry 97 97 Oxygen Delivery High Flow Therapy with Na Oxygen Flow Rate 50 Fraction of Inspired Oxygen 72 12/19/24 12:00 12/19/24 13:45 12/19/24 13:47 Temperature Pulse Rate 104 H 106 H Respiratory Rate 20 Blood Pressure Pulse Oximetry 96 Oxygen Delivery High Flow Therapy with Na Oxygen Flow Rate 40 Fraction of Inspired Oxygen 41 12/19/24 13:55 12/19/24 14:00 12/19/24 16:00 Temperature 98.2 F Pulse Rate 104 H 105 H 107 H Respiratory Rate 20 20 Blood Pressure 137/90 Pulse Oximetry 96 Oxygen Delivery Oxygen Flow Rate Fraction of Inspired Oxygen 12/19/24 16:00 12/19/24 16:00 12/19/24 18:00 Temperature Pulse Rate 104 H 103 H Respiratory Rate Blood Pressure Pulse Oximetry 96 Oxygen Delivery High Flow Therapy with Na Oxygen Flow Rate 40 Fraction of Inspired Oxygen 40 12/19/24 19:51 12/19/24 20:00 12/19/24 20:00 Temperature 99.0 F Pulse Rate 102 H 102 H Respiratory Rate 22 H Blood Pressure 132/90 Pulse Oximetry 95 95 Oxygen Delivery High Flow Therapy with Na Oxygen Flow Rate 40 Fraction of Inspired Oxygen 40 12/19/24 20:45 12/19/24 20:49 12/19/24 20:55 Temperature Pulse Rate 102 H 110 H Respiratory Rate 20 20 Blood Pressure Pulse Oximetry 96 Oxygen Delivery High Flow Therapy with Na Oxygen Flow Rate 40 Fraction of Inspired Oxygen 41 12/19/24 22:00 12/19/24 22:58 12/20/24 00:00 Temperature 99.3 F Pulse Rate 102 H 104 H Respiratory Rate 22 H Blood Pressure 136/85 Pulse Oximetry 97 96 Oxygen Delivery High Flow Therapy with Na Oxygen Flow Rate 40 Fraction of Inspired Oxygen 40 12/20/24 00:00 12/20/24 02:00 12/20/24 02:38 Temperature Pulse Rate 98 100 101 H Respiratory Rate 20 Blood Pressure Pulse Oximetry Oxygen Delivery Oxygen Flow Rate Fraction of Inspired Oxygen 12/20/24 02:42 12/20/24 02:44 12/20/24 04:00 Temperature Pulse Rate 101 H Respiratory Rate 20 Blood Pressure Pulse Oximetry 97 97 Oxygen Delivery High Flow Therapy with Na High Flow Therapy with Na Oxygen Flow Rate 35 35 Fraction of Inspired Oxygen 41 40 12/20/24 04:00 12/20/24 04:12 12/20/24 06:00 Temperature 99.3 F Pulse Rate 95 98 96 Respiratory Rate 20 Blood Pressure 144/98 H Pulse Oximetry 96 Oxygen Delivery Oxygen Flow Rate Fraction of Inspired Oxygen 12/20/24 07:50 12/20/24 08:35 12/20/24 08:35 Temperature 97.6 F Pulse Rate 95 100 Respiratory Rate 20 20 Blood Pressure 134/88 Pulse Oximetry 99 96 Oxygen Delivery High Flow Therapy with Na Oxygen Flow Rate 35 Fraction of Inspired Oxygen 40 Intake/Output Intake/Output: Intake & Output 12/17/24 12/18/24 12/19/24 12/20/24 23:59 23:59 23:59 23:59 Intake Total 0246 300 8238 1300 Output Total 1250 1700 350 450 Balance 18 -1300 1400 850 Meds/Results Medications: Active Medications Generic Name Dose Route Start Last Admin Trade Name Freq PRN Reason Stop Dose Admin Acetaminophen 650 mg 12/14/24 23:40 12/17/24 13:10 Acetaminophen 325 Mg Tablet FEED TUBE 650 mg Q4H PRN Administration Mild Pain (1-3) or Fever Albuterol/Ipratropium 3 ml 12/14/24 23:40 Ipratropium 0.5 Mg/Albuterol Sulfate 2.5 Mg Ampul.Neb 3 Ml INHALATION Q4HRT PRN shortness of breath/Wheezing Amantadine HCl 100 mg 12/15/24 11:00 12/20/24 05:27 Amantadine Hcl 100 Mg Capsule FEED TUBE 100 mg 0600,1100 EDU Administration Baclofen 10 mg 12/15/24 11:00 12/19/24 20:14 Baclofen 10 Mg Tablet FEED TUBE 10 mg 0800,1100,1400,1700,2000 EDU Administration Bisacodyl 10 mg 12/18/24 09:00 12/19/24 09:33 Bisacodyl 10 Mg Suppository RECTAL 12/20/24 09:01 10 mg QAM EDU Administration Carbamazepine 100 mg 12/15/24 12:00 12/20/24 05:27 Carbamazepine Chew 100 Mg Chew FEED TUBE 100 mg Q6HR EDU Administration Clopidogrel Bisulfate 75 mg 12/19/24 09:00 12/19/24 09:33 Clopidogrel Bisulfate 75 Mg Tablet FEED TUBE 75 mg QAM DEU Administration Guaifenesin/Dextromethorphan 10 ml 12/14/24 23:40 Guaifenesin/Dextromethorphan 10 Ml Udc FEED TUBE Q4H PRN Cough Heparin Sodium (Porcine) 5,000 units 12/15/24 09:00 12/19/24 20:14 Heparin Sodium 5,000 Units/Ml Vial SUB-Q 5,000 units Q12HR EDU Administration Piperacillin/Tazobactam/Dextrose 3.375 gm in 50 mls @ 100 mls/hr 12/15/24 00:00 12/20/24 05:26 Zosyn 3.375 Gm/Ns 50 Ml IVPB 100 mls/hr Q6HR EDU Administration Doxycycline Hyclate 100 mg in 100 mls @ 100 mls/hr 12/15/24 11:25 12/19/24 21:14 Vibramycin 100 Mg/Ns 100 Ml IVPB Infused Q12HR EDU Infusion Potassium Chloride/Dextrose/Sod Cl 1,000 mls @ 70 mls/hr 12/20/24 08:55 Kcl 40 Meq/D5ns IV CONT .[id number] EDU Lacosamide 50 mg 12/14/24 23:45 12/19/24 17:37 Lacosamide (*Crx) 50 Mg Tablet FEED TUBE 50 mg BID EDU Administration Lactulose 20 gm 12/18/24 17:00 12/19/24 17:36 Lactulose 20 Gm/30 Ml Udc FEED TUBE 20 gm BID EDU Administration Levalbuterol HCl 1.25 mg 12/18/24 20:00 12/20/24 08:35 Levalbuterol Neb 1.25 Mg/3 Ml INHALATION 1.25 mg Q6HRT EDU Administration Melatonin 5 mg 12/14/24 23:40 Melatonin 5 Mg Tablet FEED TUBE HS PRN Insomnia Potassium Chloride 40 meq 12/20/24 08:56 Potassium Chloride 20 Meq Packet (For Liquid) FEED TUBE 12/20/24 08:57 ONCE STA Prochlorperazine Edisylate 10 mg 12/14/24 23:40 12/18/24 19:52 Prochlorperazine Edisylate 10 Mg/2 Ml Vial IV PUSH 10 mg Q6H PRN Administration Nausea And Vomiting Venlafaxine HCl 25 mg 12/17/24 17:00 12/19/24 17:36 Venlafaxine Hcl 25 Mg Tablet FEED TUBE 25 mg BIDWM EDU Administration Radiology Results: ITS Impressions Chest/Abdomen/Pelvis CT 12/14/24 20:14 IMPRESSION: Bilateral aspiration pneumonia. Fecal impaction, with mild wall thickening and dilation of the sigmoid colon. Early stercoral colitis is not excluded. Likely cystitis. Chronic right pubic symphysis osteomyelitis. Possible bilateral ishcial decubitus ulcers. Abdomen X-Ray 12/17/24 16:44 IMPRESSION: 1. Large volume of stool in the colon with distention of the rectum. 2. Airspace opacities in the lower lung zones, consistent with pneumonia. Chest X-Ray 12/19/24 06:33 Impression: Patchy bilateral airspace disease, worse the right lung base, unchanged from prior exam. Findings suggest bilateral pneumonia. Labs Labs: Laboratory Results - last 24 hr 12/19/24 12/20/24 04:44 04:05 WBC 8.9 RBC 3.40 L Hgb 9.5 L Hct 30.8 L MCV 90.6 MCH 27.9 MCHC 30.8 L RDW 15.2 H Plt Count 247 MPV 10.2 Immature Gran % (Auto) 0.7 H Neut % (Auto) 71.0 Lymph % (Auto) 15.3 L [place] % (Auto) 12.4 H Eos % (Auto) 0.3 Baso % (Auto) 0.3 Lymph # (Auto) 1.37 [place] # (Auto) 1.1 H Eos # (Auto) 0.0 Baso # (Auto) 0.0 Abs Immat Gran (auto) 0.06 H Absolute Neuts (auto) 6.3 Absolute Nucleated RBC 0.000 Nucleated RBC % 0.0 Sodium 142 Potassium 3.3 L Chloride 108 H Carbon Dioxide 24 Anion Gap 10 BUN 21 H Creatinine 0.50 L Estim Creat Clear Calc 95 Estimated GFR > 60 Glucose 113 H Calcium 8.4 Magnesium 1.8 2.4 H Total Bilirubin 0.6 AST 31 ALT 28 Alkaline Phosphatase 164 H Total Protein 6.0 L Albumin 2.6 L
[2024-12-20] MEDS: POTASSIUM CHLORIDE 20 MEQ PACKET (FOR LIQUID) 40 MEQ FEED TUBE (09:20)
[2024-12-20] MEDS: VENLAFAXINE HCL 25 MG TABLET FEED TUBE ×2 (09:20→17:39)
[2024-12-20] MEDS: LACOSAMIDE (*CRX) 50 MG TABLET FEED TUBE ×2 (09:20→17:47)
[2024-12-20] MEDS: KCL 40 MEQ/D5/0.9% SOD CHL 1,000 ML 70 ML IV CONT ×2 (09:20→23:33)
[2024-12-20] MEDS: CLOPIDOGREL BISULFATE 75 MG TABLET FEED TUBE (09:20)
[2024-12-20] MEDS: DOXYCYCLINE 100 MG/NS 100 ML 100 MG/100 ML BAG IVPB ×2 (09:21→21:49)
[2024-12-20] MEDS: BISACODYL 10 MG SUPPOSITORY RECTAL (09:21)
[2024-12-20] MEDS: LACTULOSE 20 GM/30 ML UDC FEED TUBE ×2 (09:22→17:38)
[2024-12-20] MEDS: HEPARIN SODIUM 5,000 UNITS/ML VIAL 5000 UNITS SUB-Q ×2 (09:22→21:49)
[2024-12-20] MEDS: BACLOFEN 10 MG TABLET FEED TUBE ×5 (09:24→21:49)
[2024-12-20 13:32] LABS: Cholesterol 134 mg/dL (0-200); HDL Direct 30 mg/dL; Triglycerides 80 mg/dL (<150)
[2024-12-20 13:43] LABS: LDL Cholesterol Direct 58 mg/dL
--- NOTE | 2024-12-20 15:36 | PCRCNOTE ---
RT called Dr. Reeves to notify of assessment prior to breathing treatment @ 1413. RT concerned about extremely diminished to absent breath sounds on the patient's right side where her pneumonia is. RT has been able to titrate AIRVO down a little bit today to 30L 35% FiO2 though. RT assessed patient this morning prior to breathing treatment @ 0835 and heard diminished breathsounds on the right side. Dr. Reeves stated if the patient's oxygen sat is doing okay and the patient still looks and acts clinically stable, to just keep an eye on the patient and to notify him of any changes.
[2024-12-20 16:36] LABS: Toxigenic C. Diff NEGATIVE (NEGATIVE)
[2024-12-21] VITALS (25 sets, daily range): BP systolic 127–148; BP diastolic 77–86; PULSE 86–102; RESP 12–22; TEMP 36.1–36.7; O2SAT 95–98
[2024-12-21] MEDS: LEVALBUTEROL NEB 1.25 MG/3 ML INHALATION ×4 (02:15→20:26)
[2024-12-21 05:13] LABS: Basophils Percent Auto 0.3 % (0.2-1.2); Eosinophils Absolute Auto 0.3 K/mm3 (0-0.3); Eosinophils Percent Auto 3.4 % (0-4.4); Hematocrit 33.1 % (37.0-47.0); Hemoglobin 10.2 g/dL (12.0-15.0); Immature Granulocyte Absolute 0.09 K/mm3 (0.00-0.031); Lymphocytes Absolute Auto 1.51 K/mm3 (0.9-3.2); Lymphocytes Percent Auto 16.9 % (18.3-44.2); Mean Corpuscular HGB Conc 30.8 g/dl (32-36); Mean Corpuscular Hemoglobin 28.3 pg (26-34); Mean Corpuscular Volume 91.7 fl (80-100); Mean Platelet Volume 10.3 fl (7.4-10.4); Monocytes Absolute Auto 1.1 K/mm3 (0.1-0.6); Monocytes Percent Auto 12.7 % (2.6-8.5); Neutrophils Absolute Auto 5.9 K/mm3 (1.3-6.7); Neutrophils Percent Auto 65.7 % (45.5-73.1); Platelet Count Result 225 k/mm3 (150-375); Red Blood Count 3.61 M/mm3 (4.2-5.4); Red Cell Distribution Width 15.4 % (11.5-14.5); White Blood Count 8.9 K/mm3 (4.5-10.0)
[2024-12-21 05:27] LABS: Blood Urea Nitrogen 15 mg/dL (7-17)
[2024-12-21 05:32] LABS: Alanine Aminotransferase 24 U/L (6-35); Albumin Level 2.7 g/dL (3.5-5.1); Alkaline Phosphatase 156 U/L (38-126); Anion Gap 10 mmol/L (4-12); Aspartate Amino Transferase 22 U/L (14-36); Bilirubin,Total 0.8 mg/dL (0.2-1.3); Calcium 8.6 mg/dL (8.4-10.2); Carbon Dioxide 23 mmol/L (22-30); Chloride 106 mmol/L (98-107); Estimated CRCL calculation 110 ml/min; Estimated Glomerular Filt Rate > 60; Glucose 111 mg/dL (65-110); Magnesium 2.1 mg/dL (1.6-2.3); Potassium 4.3 mmol/L (3.4-5.0); Sodium 139 mmol/L (137-145)
[2024-12-21] MEDS: AMANTADINE HCL 100 MG CAPSULE FEED TUBE ×2 (06:07→11:49)
[2024-12-21] MEDS: PIPERACILLN/TAZ 3.375GM/NS50ML 3.375 GM/50 ML BAG IVPB ×2 (06:07→11:48)
--- NOTE | 2024-12-21 07:21 | PM.IMPN ---
Progress Note: A&P Assessment and Plan (1) Acute hypoxemic respiratory failure: Code(s): J96.01 - Acute respiratory failure with hypoxia Status: Acute Assessment and Plan: Patient presented with SOB and found to be hypoxic requiring up to 3 L nasal cannula felt related to aspiration PNA. She was weaned to room air but had increasing O2 requirement in the evening of 12/17 treated with airvo. CXR was repeated but remained unchanged. Patient was suctioned with some response. She required high AirVo settings; family aware of the severity of the patient's care and confirmed DNR status CPT ordered but patient has a very weak cough so doubt the benefit with this treatment. Airvo was weaned to 2L NC now. Strict NPO. All meds via GTube. Resume TF at low rate and advance slowly. Resume flushes at low rate. Stop IV fluids Wean O2 as tolerated. Continue bronchodilators. (2) Sepsis: Code(s): A41.9 - Sepsis, unspecified organism Status: Acute Assessment and Plan: Patient presents with shortness of breath and has a weak cough and found to have sepsis. CT of the chest with contrast shows multi segment, bilateral dependent consolidation with surrounding tree-in-bud opacities. She also has a patulous esophagus with fluid. These findings are concerning for bilateral aspiration pneumonia. MRSA nasal swab positive. COVID, RSV and influenza PCR were negative. Lactic acid level was normal but white count elevated and patient febrile. Started on Zosyn and Doxycycline added for atypical coverage and MRSA colonization. White count normal now and fever resolved. Blood cultures negative. UCx negative. Continue antibiotics but change to oral. Wean O2 as tolerated. (3) Aspiration pneumonia: Code(s): J69.0 - Pneumonitis due to inhalation of food and vomit Status: Acute Assessment and Plan: As above. Elevate head of the bed. Before patient decompensated, Speech eval was performed and felt patient not able to handle oral intake or medications. [place] that her worsening dysphagia related to progression of her MS All meds are via GTube currently. No plans for any oral intake or oral meds Resume tube feedings as continuous feedings Advance free water flushes as she tolerates (4) Fecal impaction: Code(s): K56.41 - Fecal impaction Status: Acute Assessment and Plan: CT scan of the abdomen and pelvis shows the rectum is dilated to 9 cm by form stool with mild wall thickening but no significant surrounding inflammatory changes. She has a dilated, mostly air-filled sigmoid colon but the remainder of the large bowel is decompressed. Large volume of colonic fecal material. BM x2 on 12/15 and 1 on 12/19 but only smears otherwise Family states that MiraLax obstructs the Gtube so she was changed to Lactulose. Trospium stopped (was used for bladder spasms) Improved stool output. 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 Wound care shows that the patient has flaking, maceration and peeling of the skin on areas in the back and bilateral buttock areas. She also has a right elbow stage III pressure ulcer noted. Appropriate wound care has been started. 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 (6) Multiple sclerosis: Code(s): G35 - Multiple sclerosis Status: Acute Assessment and Plan: Patient with chronic MS with seizures. Continue Vimpat, Tegretol. Continue baclofen. Family requesting information about private duty care and youth care professional notified. Also spoke with family about hospice care at various times and all questions answered. 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 Plan 1. Code status. DNR 2. VTE prophylaxis. SCDs; EDU 3. Nutrition. NPO; Tube feeds on hold Subjective Date/time seen: 12/21/24 07:21 Interval history: 64yo female with seizures, MS and severe debility here for SOB. Unable to provide hx. Able to wean down to 2L now. Patient had 2 stools; one was very large. Review of Systems Review of Systems: ROS unobtainable: Yes unobtainable due to mental status Exam Narrative: Tm 100.3 98.1 148/83 95 20 98% HFNC Gen - sitting up right in bed Chest - improved air exchange. Right base inspiratory crackles. CV - RRR S1/S2. Telemetry showing one brief run of SVT o/w no significant dysrhythmias Abd - soft, +BS, nondistended. G-tube site is clean, dry and intact. -Nichols secured with clear yellow urine in the bag Ext - no pedal edema Neuro -patient awake but unable to provide hx. Mumbled speech. Functional quadriplegic. Skin - Warm and dry. Objective Data Vital Signs Vital Signs: Vital Signs - 24 hr 12/20/24 07:50 12/20/24 08:00 12/20/24 08:00 Temperature 97.6 F Pulse Rate 95 98 Respiratory Rate 20 Blood Pressure 134/88 Pulse Oximetry 99 97 Oxygen Delivery High Flow Therapy with Na Oxygen Flow Rate 30 Fraction of Inspired Oxygen 35 12/20/24 08:35 12/20/24 08:35 12/20/24 10:00 Temperature Pulse Rate 100 95 Respiratory Rate 20 Blood Pressure Pulse Oximetry 96 Oxygen Delivery High Flow Therapy with Na Oxygen Flow Rate 35 Fraction of Inspired Oxygen 40 12/20/24 11:35 12/20/24 12:00 12/20/24 12:00 Temperature 99.5 F Pulse Rate 104 H 102 H Respiratory Rate 14 Blood Pressure 137/92 H Pulse Oximetry 97 97 Oxygen Delivery High Flow Therapy with Na Oxygen Flow Rate 30 Fraction of Inspired Oxygen 35 12/20/24 12:21 12/20/24 14:00 12/20/24 14:13 Temperature Pulse Rate 103 H Respiratory Rate Blood Pressure Pulse Oximetry 97 97 Oxygen Delivery High Flow Therapy with Na High Flow Therapy with Na Oxygen Flow Rate 30 30 Fraction of Inspired Oxygen 35 35 12/20/24 14:13 12/20/24 14:21 12/20/24 16:00 Temperature Pulse Rate 101 H 102 H 101 H Respiratory Rate 20 20 Blood Pressure Pulse Oximetry Oxygen Delivery Oxygen Flow Rate Fraction of Inspired Oxygen 12/20/24 16:00 12/20/24 16:00 12/20/24 17:46 Temperature 100.3 F H Pulse Rate 101 H Respiratory Rate 16 Blood Pressure 134/87 Pulse Oximetry 96 97 97 Oxygen Delivery High Flow Nasal Cannula High Flow Therapy with Na Oxygen Flow Rate 4 30 Fraction of Inspired Oxygen 35 12/20/24 17:51 12/20/24 18:00 12/20/24 20:00 Temperature 97.0 F L Pulse Rate 102 H 102 H Respiratory Rate 16 Blood Pressure 139/89 Pulse Oximetry 100 98 Oxygen Delivery High Flow Nasal Cannula Oxygen Flow Rate 6 Fraction of Inspired Oxygen 44 12/20/24 20:00 12/20/24 21:02 12/20/24 21:06 Temperature Pulse Rate 102 H 101 H 101 H Respiratory Rate 20 Blood Pressure Pulse Oximetry 97 Oxygen Delivery High Flow Nasal Cannula Oxygen Flow Rate 4 Fraction of Inspired Oxygen 12/20/24 21:16 12/20/24 21:30 12/20/24 22:00 Temperature Pulse Rate 103 H 103 H 102 H Respiratory Rate 20 20 Blood Pressure Pulse Oximetry 97 Oxygen Delivery High Flow Nasal Cannula Oxygen Flow Rate 3 Fraction of Inspired Oxygen 12/20/24 22:30 12/20/24 23:40 12/20/24 23:59 Temperature 97.9 F Pulse Rate 101 H 101 H Respiratory Rate 16 16 Blood Pressure 141/84 H Pulse Oximetry 98 96 96 Oxygen Delivery High Flow Nasal Cannula High Flow Nasal Cannula Oxygen Flow Rate 3 3 Fraction of Inspired Oxygen 12/21/24 00:00 12/21/24 02:00 12/21/24 02:15 Temperature Pulse Rate 102 H 95 92 Respiratory Rate 20 Blood Pressure Pulse Oximetry Oxygen Delivery Oxygen Flow Rate Fraction of Inspired Oxygen 12/21/24 02:15 12/21/24 02:25 12/21/24 04:00 Temperature 98.1 F Pulse Rate 95 95 Respiratory Rate 20 16 Blood Pressure 148/83 H Pulse Oximetry 98 97 Oxygen Delivery High Flow Nasal Cannula Oxygen Flow Rate 3 Fraction of Inspired Oxygen 12/21/24 04:00 12/21/24 04:05 12/21/24 04:40 Temperature Pulse Rate 95 95 Respiratory Rate 20 Blood Pressure Pulse Oximetry 96 98 Oxygen Delivery High Flow Nasal Cannula High Flow Nasal Cannula Oxygen Flow Rate 2 2 Fraction of Inspired Oxygen Intake/Output Intake/Output: Intake & Output 12/18/24 12/19/24 12/20/24 12/21/24 23:59 23:59 23:59 23:59 Intake Total 400 1750 2645.2 50 Output Total 5932 409 2291 1000 Balance -1300 1400 1345.2 -950 Meds/Results Medications: Active Medications Generic Name Dose Route Start Last Admin Trade Name Freq PRN Reason Stop Dose Admin Acetaminophen 650 mg 12/14/24 23:40 12/17/24 13:10 Acetaminophen 325 Mg Tablet FEED TUBE 650 mg Q4H PRN Administration Mild Pain (1-3) or Fever Albuterol/Ipratropium 3 ml 12/14/24 23:40 Ipratropium 0.5 Mg/Albuterol Sulfate 2.5 Mg Ampul.Neb 3 Ml INHALATION Q4HRT PRN shortness of breath/Wheezing Amantadine HCl 100 mg 12/15/24 11:00 12/21/24 06:07 Amantadine Hcl 100 Mg Capsule FEED TUBE 100 mg 0600,1100 EDU Administration Baclofen 10 mg 12/15/24 11:00 12/20/24 21:49 Baclofen 10 Mg Tablet FEED TUBE 10 mg 0800,1100,1400,1700,2000 EDU Administration Carbamazepine 100 mg 12/15/24 12:00 12/21/24 06:07 Carbamazepine Chew 100 Mg Chew FEED TUBE 100 mg Q6HR EDU Administration Clopidogrel Bisulfate 75 mg 12/19/24 09:00 12/20/24 09:20 Clopidogrel Bisulfate 75 Mg Tablet FEED TUBE 75 mg QAM EDU Administration Guaifenesin/Dextromethorphan 10 ml 12/14/24 23:40 Guaifenesin/Dextromethorphan 10 Ml Udc FEED TUBE Q4H PRN Cough Heparin Sodium (Porcine) 5,000 units 12/15/24 09:00 12/20/24 21:49 Heparin Sodium 5,000 Units/Ml Vial SUB-Q 5,000 units Q12HR EDU Administration Piperacillin/Tazobactam/Dextrose 3.375 gm in 50 mls @ 100 mls/hr 12/15/24 00:00 12/21/24 06:07 Zosyn 3.375 Gm/Ns 50 Ml IVPB 100 mls/hr Q6HR EDU Administration Doxycycline Hyclate 100 mg in 100 mls @ 100 mls/hr 12/15/24 11:25 12/20/24 22:50 Vibramycin 100 Mg/Ns 100 Ml IVPB Infused Q12HR EDU Infusion Potassium Chloride/Dextrose/Sod Cl 1,000 mls @ 70 mls/hr 12/20/24 10:00 12/20/24 23:33 Kcl 40 Meq/D5ns IV CONT 70 mls/hr .[id number] EDU Administration Lacosamide 50 mg 12/14/24 23:45 12/20/24 17:47 Lacosamide (*Crx) 50 Mg Tablet FEED TUBE 50 mg BID EDU Administration Lactulose 20 gm 12/18/24 17:00 12/20/24 17:38 Lactulose 20 Gm/30 Ml Udc FEED TUBE 20 gm BID EDU Administration Levalbuterol HCl 1.25 mg 12/18/24 20:00 12/21/24 02:15 Levalbuterol Neb 1.25 Mg/3 Ml INHALATION 1.25 mg Q6HRT EDU Administration Melatonin 5 mg 12/14/24 23:40 Melatonin 5 Mg Tablet FEED TUBE HS PRN Insomnia Prochlorperazine Edisylate 10 mg 12/14/24 23:40 12/18/24 19:52 Prochlorperazine Edisylate 10 Mg/2 Ml Vial IV PUSH 10 mg Q6H PRN Administration Nausea And Vomiting Venlafaxine HCl 25 mg 12/17/24 17:00 12/20/24 17:39 Venlafaxine Hcl 25 Mg Tablet FEED TUBE 25 mg BIDWM EDU Administration Radiology Results: ITS Impressions Chest/Abdomen/Pelvis CT 12/14/24 20:14 IMPRESSION: Bilateral aspiration pneumonia. Fecal impaction, with mild wall thickening and dilation of the sigmoid colon. Early stercoral colitis is not excluded. Likely cystitis. Chronic right pubic symphysis osteomyelitis. Possible bilateral ishcial decubitus ulcers. Abdomen X-Ray 12/20/24 14:42 IMPRESSION: 1. Distended colon, likely adynamic ileus. 2. Airspace opacities in right mid and lower lung zones and left lower lung zone, consistent with pneumonia. Chest X-Ray 12/21/24 06:22 Impression: Small right pleural effusion with hazy right basilar airspace disease. Correlate for pneumonia. Probable areas of chronic scarring at the right upper lobe and left lower lobe. Labs Labs: Laboratory Results - last 24 hr 12/20/24 12/20/24 12/20/24 04:00 04:05 15:37 WBC RBC Hgb Hct MCV MCH MCHC RDW Plt Count MPV Immature Gran % (Auto) Neut % (Auto) Lymph % (Auto) [place] % (Auto) Eos % (Auto) Baso % (Auto) Lymph # (Auto) [place] # (Auto) Eos # (Auto) Baso # (Auto) Abs Immat Gran (auto) Absolute Neuts (auto) Absolute Nucleated RBC Nucleated RBC % Sodium 142 Potassium 3.3 L Chloride 108 H Carbon Dioxide 24 Anion Gap 10 BUN 21 H Creatinine 0.50 L Estim Creat Clear Calc 95 Estimated GFR > 60 Glucose 113 H Calcium 8.4 Magnesium 2.4 H Total Bilirubin 0.6 AST 31 ALT 28 Alkaline Phosphatase 164 H Total Protein 6.0 L Albumin 2.6 L Triglycerides 80 Cholesterol 134 LDL Cholesterol Direct 58 HDL Direct 30 C. difficile (PCR) Negative 12/21/24 04:42 WBC 8.9 RBC 3.61 L Hgb 10.2 L Hct 33.1 L MCV 91.7 MCH 28.3 MCHC 30.8 L RDW 15.4 H Plt Count 225 MPV 10.3 Immature Gran % (Auto) 1.0 H Neut % (Auto) 65.7 Lymph % (Auto) 16.9 L [place] % (Auto) 12.7 H Eos % (Auto) 3.4 Baso % (Auto) 0.3 Lymph # (Auto) 1.51 [place] # (Auto) 1.1 H Eos # (Auto) 0.3 Baso # (Auto) 0.0 Abs Immat Gran (auto) 0.09 H Absolute Neuts (auto) 5.9 Absolute Nucleated RBC 0.000 Nucleated RBC % 0.0 Sodium 139 Potassium 4.3 Chloride 106 Carbon Dioxide 23 Anion Gap 10 BUN 15 D Creatinine 0.42 L Estim Creat Clear Calc 110 Estimated GFR > 60 Glucose 111 H Calcium 8.6 Magnesium 2.1 Total Bilirubin 0.8 AST 22 ALT 24 Alkaline Phosphatase 156 H Total Protein 6.0 L Albumin 2.7 L Triglycerides Cholesterol LDL Cholesterol Direct HDL Direct C. difficile (PCR)
[2024-12-21] MEDS: CLOPIDOGREL BISULFATE 75 MG TABLET FEED TUBE (09:55)
[2024-12-21] MEDS: WATER FOR IRRIGATION, STERILE 1,000 ML BOTTLE 1000 ML (09:56)
[2024-12-21] MEDS: DOXYCYCLINE 100 MG/NS 100 ML 100 MG/100 ML BAG IVPB (09:56)
[2024-12-21] MEDS: BACLOFEN 10 MG TABLET FEED TUBE ×5 (09:56→20:32)
[2024-12-21] MEDS: HEPARIN SODIUM 5,000 UNITS/ML VIAL 5000 UNITS SUB-Q ×2 (09:56→20:34)
[2024-12-21] MEDS: LACOSAMIDE (*CRX) 50 MG TABLET FEED TUBE ×2 (09:56→18:10)
[2024-12-21] MEDS: VENLAFAXINE HCL 25 MG TABLET FEED TUBE ×2 (09:56→18:10)
[2024-12-21] MEDS: LACTULOSE 20 GM/30 ML UDC FEED TUBE ×2 (09:57→18:10)
--- NOTE | 2024-12-21 13:41 | PCNFU ---
Nutrition Follow-Up Complete: 1. Inability to meet estimated nutrition needs PO related to swallowing ability as evidenced by need for full tube feedings 2. Increased protein energy needs related to wound healing as evidenced by Stage 3 pressure injuries to elbow and sacrum Goal:Meet estimated nutrition needs Provide supplements for wound healing support Pt not meeting goals at this time. Continue with same goals Pt current nutrition is NPO, tube feedings on hold due to aspiration. Nutrition recommendation: trickle feeds and monitor tolerance Last recorded weight is 70.6 kg. Bowel Motility: +BM 12/20 Labs Reviewed: Hgb:10.2, HCT:33.1, Alb:2.7, Cr:0.42, Glu:111 Meds Noted: heparin, miralax Skin: Stage III to elbow, stage III to sacrum Additional Notes: Pt was on tube feedings, aspirated 12/17 and feedings were discontinued over the weekend, KUB showed an ileus. Nursing reports plan is to start trickle feeds today and monitor. Monitoring tube feeding tolerance, output, labs, weights, wounds, plan of care Follow up Friday and Friday
[2024-12-21] MEDS: ACETAMINOPHEN 325 MG TABLET 650 MG FEED TUBE (18:09)
[2024-12-21] MEDS: AMOXICILLIN/CLAVULANATE K 875-125 MG TAB 1 TABLET FEED TUBE (20:34)
[2024-12-21] MEDS: DOXYCYCLINE HYCLATE 100 MG TABLET FEED TUBE (20:34)
[2024-12-22] VITALS (20 sets, daily range): BP systolic 99–130; BP diastolic 64–79; PULSE 88–108; RESP 12–22; TEMP 36.4–36.8; O2SAT 91–95
[2024-12-22] MEDS: ACETAMINOPHEN 325 MG TABLET 650 MG FEED TUBE (00:25)
[2024-12-22] MEDS: LEVALBUTEROL NEB 1.25 MG/3 ML INHALATION ×4 (02:52→20:07)
[2024-12-22 04:56] LABS: Basophils Absolute Auto 0.1 K/mm3 (0.0-0.1); Basophils Percent Auto 0.7 % (0.2-1.2); Eosinophils Absolute Auto 0.9 K/mm3 (0-0.3); Hematocrit 38.2 % (37.0-47.0); Hemoglobin 11.6 g/dL (12.0-15.0); Immature Granulocyte Absolute 0.26 K/mm3 (0.00-0.031); Immature Granulocyte Percent A 2.3 % (0-0.5); Lymphocytes Absolute Auto 1.79 K/mm3 (0.9-3.2); Lymphocytes Percent Auto 15.9 % (18.3-44.2); Mean Corpuscular HGB Conc 30.4 g/dl (32-36); Mean Corpuscular Hemoglobin 27.8 pg (26-34); Mean Corpuscular Volume 91.6 fl (80-100); Mean Platelet Volume 10.4 fl (7.4-10.4); Monocytes Absolute Auto 1.5 K/mm3 (0.1-0.6); Monocytes Percent Auto 13.5 % (2.6-8.5); Neutrophils Absolute Auto 6.7 K/mm3 (1.3-6.7); Neutrophils Percent Auto 59.6 % (45.5-73.1); Platelet Count Result 263 k/mm3 (150-375); Red Blood Count 4.17 M/mm3 (4.2-5.4); Red Cell Distribution Width 16.2 % (11.5-14.5); White Blood Count 11.3 K/mm3 (4.5-10.0)
[2024-12-22 05:10] LABS: Alanine Aminotransferase 27 U/L (6-35); Albumin Level 2.8 g/dL (3.5-5.1); Alkaline Phosphatase 169 U/L (38-126); Anion Gap 11 mmol/L (4-12); Aspartate Amino Transferase 25 U/L (14-36); Bilirubin,Total 0.8 mg/dL (0.2-1.3); Blood Urea Nitrogen 14 mg/dL (7-17); Calcium 8.8 mg/dL (8.4-10.2); Carbon Dioxide 22 mmol/L (22-30); Chloride 101 mmol/L (98-107); Estimated CRCL calculation 108 ml/min; Estimated Glomerular Filt Rate > 60; Glucose 114 mg/dL (65-110); Magnesium 1.9 mg/dL (1.6-2.3); Potassium 3.8 mmol/L (3.4-5.0); Sodium 134 mmol/L (137-145)
[2024-12-22] MEDS: AMANTADINE HCL 100 MG CAPSULE FEED TUBE ×2 (06:08→11:27)
[2024-12-22] MEDS: DOXYCYCLINE HYCLATE 100 MG TABLET FEED TUBE ×2 (08:24→20:43)
[2024-12-22] MEDS: BACLOFEN 10 MG TABLET FEED TUBE ×5 (08:24→20:43)
[2024-12-22] MEDS: VENLAFAXINE HCL 25 MG TABLET FEED TUBE ×2 (08:24→17:12)
[2024-12-22] MEDS: CLOPIDOGREL BISULFATE 75 MG TABLET FEED TUBE (08:24)
[2024-12-22] MEDS: LACOSAMIDE (*CRX) 50 MG TABLET FEED TUBE ×2 (08:24→17:13)
[2024-12-22] MEDS: AMOXICILLIN/CLAVULANATE K 875-125 MG TAB 1 TABLET FEED TUBE ×2 (08:24→20:43)
[2024-12-22] MEDS: HEPARIN SODIUM 5,000 UNITS/ML VIAL 5000 UNITS SUB-Q ×2 (08:25→20:43)
[2024-12-22] MEDS: guaiFENesin/DEXTROMETHORPHAN 10 ML UDC FEED TUBE (11:27)
--- NOTE | 2024-12-22 12:02 | P.PNIM_ITS ---
Progress Note: A&P Assessment and Plan (1) Fecal impaction: Code(s): K56.41 - Fecal impaction Status: Acute (2) Sepsis: Code(s): A41.9 - Sepsis, unspecified organism Status: Acute (3) Osteomyelitis: Code(s): M86.9 - Osteomyelitis, unspecified Status: Acute (4) Multiple sclerosis: Code(s): G35 - Multiple sclerosis Status: Acute (5) Functional quadriplegia secondary to MS: Code(s): G35 - Multiple sclerosis; R53.2 - Functional quadriplegia Status: Acute (6) Aspiration pneumonia: Code(s): J69.0 - Pneumonitis due to inhalation of food and vomit Status: Acute (7) Acute hypoxemic respiratory failure: Code(s): J96.01 - Acute respiratory failure with hypoxia Status: Acute Plan (1) Acute hypoxemic respiratory failure: Code(s): J96.01 - Acute respiratory failure with hypoxia Status: Acute Assessment and Plan: Patient presented with SOB and found to be hypoxic requiring up to 3 L nasal cannula felt related to aspiration PNA. She was weaned to room air but had increasing O2 requirement in the evening of 12/17 treated with airvo. CXR was repeated but remained unchanged. Patient was suctioned with some response. She required high AirVo settings; family aware of the severity of the patient's care and confirmed DNR status CPT ordered but patient has a very weak cough so doubt the benefit with this treatment. Airvo was weaned to 2L NC now. Strict NPO. All meds via GTube. Resume TF at low rate and advance slowly. Resume flushes at low rate. Stop IV fluids Patient need O2 therapy Continue bronchodilators. (2) Sepsis: Code(s): A41.9 - Sepsis, unspecified organism Status: Acute Assessment and Plan: Patient presents with shortness of breath and has a weak cough and found to have sepsis. CT of the chest with contrast shows multi segment, bilateral dependent consolidation with surrounding tree-in-bud opacities. She also has a patulous esophagus with fluid. These findings are concerning for bilateral aspiration pneumonia. MRSA nasal swab positive. COVID, RSV and influenza PCR were negative. Lactic acid level was normal but white count elevated and patient febrile. Started on Zosyn and Doxycycline added for atypical coverage and MRSA colonization. White count normal now and fever resolved. Blood cultures negative. UCx negative. Continue antibiotics but change to oral. Wean O2 as tolerated. (3) Aspiration pneumonia: Code(s): J69.0 - Pneumonitis due to inhalation of food and vomit Status: Acute Assessment and Plan: As above. Elevate head of the bed. Before patient decompensated, Speech eval was performed and felt patient not able to handle oral intake or medications. [place] that her worsening dysphagia related to progression of her MS All meds are via GTube currently. No plans for any oral intake or oral meds Resume tube feedings as continuous feedings Advance free water flushes as she tolerates (4) Fecal impaction: Code(s): K56.41 - Fecal impaction Status: Acute Assessment and Plan: CT scan of the abdomen and pelvis shows the rectum is dilated to 9 cm by form stool with mild wall thickening but no significant surrounding inflammatory changes. She has a dilated, mostly air-filled sigmoid colon but the remainder of the large bowel is decompressed. Large volume of colonic fecal material. BM x2 on 12/15 and 1 on 12/19 but only smears otherwise Family states that MiraLax obstructs the Gtube so she was changed to Lactulose. Trospium stopped (was used for bladder spasms) Improved stool output. 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 Wound care shows that the patient has flaking, maceration and peeling of the skin on areas in the back and bilateral buttock areas. She also has a right elbow stage III pressure ulcer noted. Appropriate wound care has been started. Will hold off on plans for buttermaker continuous churn IV abx. (6) Multiple sclerosis: Code(s): G35 - Multiple sclerosis Status: Acute Assessment and Plan: Patient with chronic MS with seizures. Continue Vimpat, Tegretol. Continue baclofen. Family requesting information about private duty care and career representative notified. Also spoke with family about hospice care at various times and all questions answered. 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 Patient is on end-stage of MS with complications dysphagia, quadriplegia, on tube feeding, patient has aspiration pneumonia. I have discussed with patient's mother about patient's goal of care. Mother will admit hospice care with patient's daughter, the consider move patient to hospice care in her home after discharge. Consult career representative for aging hospice care meeting More patient to medical floor Subjective Date/time seen: 12/22/24 12:02 Interval history: I saw exam patient today in presents of patient's mother and the nurse. Patient is on continuous tube feeding, patient is nonverbal, paraplegia due to MS. Patient looks not comfortable, patient is afebrile patient has a tachycardia tachypnea. Pulse ox 91-92 on 2 L oxygen. Patient had a bowel movement today. Lab showed leukocytosis 11,300, chemistry unremarkable except sodium 134 Exam Narrative: GENERAL: Ill-appearing, nonverbal, in no acute distress. Severe malnutrition - EYES: EOMI. Anicteric. - HENT: Moist mucous membranes. - LUNGS: Coarse breath sound bilateral base - CARDIOVASCULAR: Regular rate and rhyth m. No murmur. No JVD. - ABDOMEN: Soft, non-tender and non-dist ended. No palpable masses. On NG tube feeding - EXTREMITIES: No edema. Peripheral puls es 2+. Non-tender. - NEUROLOGIC: No focal neurological defi cits. CN II-XII grossly intact. - PSYCHIATRIC: Awake, Alert and not orie nted x 3. Contracture of all extremities - SKIN: No rashes or lesions. Warm. - LYMPH: No cervical lymphadenopathy. Objective Data Vital Signs Vital Signs: Vital Signs - 24 hr 12/21/24 13:27 12/21/24 13:38 12/21/24 14:00 Temperature Pulse Rate 89 92 90 Respiratory Rate 20 20 Blood Pressure Pulse Oximetry Oxygen Delivery Oxygen Flow Rate 12/21/24 16:00 12/21/24 16:00 12/21/24 16:00 Temperature 97.4 F L Pulse Rate 90 90 Respiratory Rate 12 Blood Pressure 133/77 Pulse Oximetry 97 98 Oxygen Delivery High Flow Nasal Cannula Oxygen Flow Rate 2 12/21/24 18:00 12/21/24 19:44 12/21/24 20:00 Temperature 97.0 F L Pulse Rate 91 93 86 Respiratory Rate 16 12 Blood Pressure 135/77 Pulse Oximetry 95 97 Oxygen Delivery High Flow Nasal Cannula Oxygen Flow Rate 2 12/21/24 20:00 12/21/24 20:27 12/21/24 20:45 Temperature Pulse Rate 90 93 92 Respiratory Rate 20 20 Blood Pressure Pulse Oximetry Oxygen Delivery Oxygen Flow Rate 12/21/24 22:00 12/21/24 23:25 12/22/24 00:00 Temperature Pulse Rate 89 89 89 Respiratory Rate 20 Blood Pressure Pulse Oximetry 97 Oxygen Delivery High Flow Nasal Cannula Oxygen Flow Rate 2 12/22/24 00:00 12/22/24 02:00 12/22/24 02:53 Temperature 98.1 F Pulse Rate 91 90 89 Respiratory Rate 12 20 Blood Pressure 130/76 Pulse Oximetry 95 Oxygen Delivery Oxygen Flow Rate 12/22/24 03:03 12/22/24 03:45 12/22/24 04:00 Temperature 97.5 F L Pulse Rate 88 88 92 Respiratory Rate 20 20 12 Blood Pressure 126/77 Pulse Oximetry 95 93 Oxygen Delivery High Flow Nasal Cannula Oxygen Flow Rate 2 12/22/24 04:00 12/22/24 06:00 12/22/24 08:00 Temperature 98.2 F Pulse Rate 91 94 97 Respiratory Rate 22 H Blood Pressure 126/79 Pulse Oximetry 94 Oxygen Delivery Oxygen Flow Rate 12/22/24 08:00 12/22/24 08:00 12/22/24 08:00 Temperature 98.2 F Pulse Rate 97 103 H Respiratory Rate 22 H Blood Pressure 126/79 Pulse Oximetry 94 91 Oxygen Delivery High Flow Nasal Cannula Oxygen Flow Rate 2 12/22/24 08:49 12/22/24 08:49 12/22/24 09:00 Temperature Pulse Rate 103 H 103 H 105 H Respiratory Rate 20 20 20 Blood Pressure Pulse Oximetry 92 Oxygen Delivery Nasal Cannula Oxygen Flow Rate 2 12/22/24 10:00 12/22/24 11:37 Temperature Pulse Rate 106 H Respiratory Rate Blood Pressure Pulse Oximetry 91 Oxygen Delivery High Flow Nasal Cannula Oxygen Flow Rate 2 Intake/Output Intake/Output: Intake & Output 12/19/24 12/20/24 12/21/24 12/22/24 23:59 23:59 23:59 23:59 Intake Total 1750 2645.2 350 648 Output Total 350 1300 2800 552 Balance 1400 1345.2 -2450 96 Meds/Results Medications: Active Medications Generic Name Dose Route Start Last Admin Trade Name Freq PRN Reason Stop Dose Admin Acetaminophen 650 mg 12/14/24 23:40 12/22/24 00:25 Acetaminophen 325 Mg Tablet FEED TUBE 650 mg Q4H PRN Administration Mild Pain (1-3) or Fever Albuterol/Ipratropium 3 ml 12/14/24 23:40 Ipratropium 0.5 Mg/Albuterol Sulfate 2.5 Mg Ampul.Neb 3 Ml INHALATION Q4HRT PRN shortness of breath/Wheezing Amantadine HCl 100 mg 12/15/24 11:00 12/22/24 11:27 Amantadine Hcl 100 Mg Capsule FEED TUBE 100 mg 0600,1100 EDU Administration Amoxicillin/Clavulanate Potassium 1 tablet 12/21/24 21:00 12/22/24 08:24 Amoxicillin/Clavulanate K 875-125 Mg Tab FEED TUBE 12/24/24 21:01 1 tablet Q12HR EDU Administration Baclofen 10 mg 12/15/24 11:00 12/22/24 11:27 Baclofen 10 Mg Tablet FEED TUBE 10 mg 0800,1100,1400,1700,2000 EDU Administration Carbamazepine 100 mg 12/15/24 12:00 12/22/24 11:27 Carbamazepine Chew 100 Mg Chew FEED TUBE 100 mg Q6HR EDU Administration Clopidogrel Bisulfate 75 mg 12/19/24 09:00 12/22/24 08:24 Clopidogrel Bisulfate 75 Mg Tablet FEED TUBE 75 mg QAM EDU Administration Doxycycline Hyclate 100 mg 12/21/24 21:00 12/22/24 08:24 Doxycycline Hyclate 100 Mg Tablet FEED TUBE 12/24/24 21:01 100 mg Q12HR EDU Administration Guaifenesin/Dextromethorphan 10 ml 12/14/24 23:40 12/22/24 11:27 Guaifenesin/Dextromethorphan 10 Ml Udc FEED TUBE 10 ml Q4H PRN Administration Cough Heparin Sodium (Porcine) 5,000 units 12/15/24 09:00 12/22/24 08:25 Heparin Sodium 5,000 Units/Ml Vial SUB-Q 5,000 units Q12HR EDU Administration Lacosamide 50 mg 12/14/24 23:45 12/22/24 08:24 Lacosamide (*Crx) 50 Mg Tablet FEED TUBE 50 mg BID EDU Administration Lactulose 20 gm 12/18/24 17:00 12/22/24 08:25 Lactulose 20 Gm/30 Ml Udc FEED TUBE Not Given BID EDU Levalbuterol HCl 1.25 mg 12/18/24 20:00 12/22/24 08:47 Levalbuterol Neb 1.25 Mg/3 Ml INHALATION 1.25 mg Q6HRT EDU Administration Melatonin 5 mg 12/14/24 23:40 Melatonin 5 Mg Tablet FEED TUBE HS PRN Insomnia Prochlorperazine Edisylate 10 mg 12/14/24 23:40 12/18/24 19:52 Prochlorperazine Edisylate 10 Mg/2 Ml Vial IV PUSH 10 mg Q6H PRN Administration Nausea And Vomiting Venlafaxine HCl 25 mg 12/17/24 17:00 12/22/24 08:24 Venlafaxine Hcl 25 Mg Tablet FEED TUBE 25 mg BIDWM EDU Administration Radiology Results: ITS Impressions Chest/Abdomen/Pelvis CT 12/14/24 20:14 IMPRESSION: Bilateral aspiration pneumonia. Fecal impaction, with mild wall thickening and dilation of the sigmoid colon. Early stercoral colitis is not excluded. Likely cystitis. Chronic right pubic symphysis osteomyelitis. Possible bilateral ishcial decubitus ulcers. Abdomen X-Ray 12/20/24 14:42 IMPRESSION: 1. Distended colon, likely adynamic ileus. 2. Airspace opacities in right mid and lower lung zones and left lower lung zone, consistent with pneumonia. Chest X-Ray 12/21/24 06:22 Impression: Small right pleural effusion with hazy right basilar airspace disease. Correlate for pneumonia. Probable areas of chronic scarring at the right upper lobe and left lower lobe. Labs Labs: Laboratory Results - last 24 hr 12/22/24 04:43 WBC 11.3 H RBC 4.17 L Hgb 11.6 L Hct 38.2 MCV 91.6 MCH 27.8 MCHC 30.4 L RDW 16.2 H Plt Count 263 MPV 10.4 Immature Gran % (Auto) 2.3 H Neut % (Auto) 59.6 Lymph % (Auto) 15.9 L Mobile % (Auto) 13.5 H Eos % (Auto) 8.0 H Baso % (Auto) 0.7 Lymph # (Auto) 1.79 Mobile # (Auto) 1.5 H Eos # (Auto) 0.9 H Baso # (Auto) 0.1 Abs Immat Gran (auto) 0.26 H Absolute Neuts (auto) 6.7 Absolute Nucleated RBC 0.000 Nucleated RBC % 0.0 Sodium 134 L Potassium 3.8 Chloride 101 Carbon Dioxide 22 Anion Gap 11 BUN 14 Creatinine 0.43 L Estim Creat Clear Calc 108 Estimated GFR > 60 Glucose 114 H Calcium 8.8 Magnesium 1.9 Total Bilirubin 0.8 AST 25 ALT 27 Alkaline Phosphatase 169 H Total Protein 6.0 L Albumin 2.8 L
[2024-12-23 01:51] VITALS: PULSE 120; RESP 24
[2024-12-23] MEDS: LEVALBUTEROL NEB 1.25 MG/3 ML INHALATION (01:51)
[2024-12-23 02:09] VITALS: PULSE 109; RESP 24
--- NOTE | 2024-12-23 02:36 | PC.NURSE ---
Patient continues to deteriorate this shift. Patient diaphoretic, cold and clammy, tachypneic with audible, coarse lung sounds. RN attempted to suction patient but was unable to get up many of the secretions. Daughter of patient spoke with patient's mother (POA) and made decision to make patient comfort measures. RAMIREZ Mathews notified of family's decision and orders were obtained to make patient comfortable. Will continue to monitor.
[2024-12-23] MEDS: LORazepam INJ (*CRX) 2 MG/ML VIAL 1 MG IV PUSH ×5 (03:17→11:48)
[2024-12-23] MEDS: MORPHINE SULFATE (*CRX) 2 MG/ML INJ IV PUSH ×6 (03:17→11:49)
[2024-12-23 08:00] VITALS: PULSE 114; PULSE 117; RESP 10; O2SAT 88
[2024-12-23] MEDS: ATROPINE SULFATE 1% OPHTH SOLN 5 ML BOTTLE 1 DROP SUBLINGUAL (09:58)
--- NOTE | 2024-12-23 10:13 | PM.IMPN ---
Progress Note: A&P Assessment and Plan (1) Fecal impaction: Code(s): K56.41 - Fecal impaction Status: Acute (2) Sepsis: Code(s): A41.9 - Sepsis, unspecified organism Status: Acute (3) Osteomyelitis: Code(s): M86.9 - Osteomyelitis, unspecified Status: Acute (4) Multiple sclerosis: Code(s): G35 - Multiple sclerosis Status: Acute (5) Functional quadriplegia secondary to MS: Code(s): G35 - Multiple sclerosis; R53.2 - Functional quadriplegia Status: Acute (6) Aspiration pneumonia: Code(s): J69.0 - Pneumonitis due to inhalation of food and vomit Status: Acute (7) Acute hypoxemic respiratory failure: Code(s): J96.01 - Acute respiratory failure with hypoxia Status: Acute Plan (1) Acute hypoxemic respiratory failure: Code(s): J96.01 - Acute respiratory failure with hypoxia Status: Acute Assessment and Plan: Patient presented with SOB and found to be hypoxic requiring up to 3 L nasal cannula felt related to aspiration PNA. She was weaned to room air but had increasing O2 requirement in the evening of 12/17 treated with airvo. CXR was repeated but remained unchanged. Patient was suctioned with some response. She required high AirVo settings; family aware of the severity of the patient's care and confirmed DNR status CPT ordered but patient has a very weak cough so doubt the benefit with this treatment. Airvo was weaned to 2L NC now. Strict NPO. All meds via GTube. Resume TF at low rate and advance slowly. Resume flushes at low rate. Stop IV fluids Patient need O2 therapy Continue bronchodilators. (2) Sepsis: Code(s): A41.9 - Sepsis, unspecified organism Status: Acute Assessment and Plan: Patient presents with shortness of breath and has a weak cough and found to have sepsis. CT of the chest with contrast shows multi segment, bilateral dependent consolidation with surrounding tree-in-bud opacities. She also has a patulous esophagus with fluid. These findings are concerning for bilateral aspiration pneumonia. MRSA nasal swab positive. COVID, RSV and influenza PCR were negative. Lactic acid level was normal but white count elevated and patient febrile. Started on Zosyn and Doxycycline added for atypical coverage and MRSA colonization. White count normal now and fever resolved. Blood cultures negative. UCx negative. Continue antibiotics but change to oral. Wean O2 as tolerated. (3) Aspiration pneumonia: Code(s): J69.0 - Pneumonitis due to inhalation of food and vomit Status: Acute Assessment and Plan: As above. Elevate head of the bed. Before patient decompensated, Speech eval was performed and felt patient not able to handle oral intake or medications. [place] that her worsening dysphagia related to progression of her MS All meds are via GTube currently. No plans for any oral intake or oral meds Resume tube feedings as continuous feedings Advance free water flushes as she tolerates (4) Fecal impaction: Code(s): K56.41 - Fecal impaction Status: Acute Assessment and Plan: CT scan of the abdomen and pelvis shows the rectum is dilated to 9 cm by form stool with mild wall thickening but no significant surrounding inflammatory changes. She has a dilated, mostly air-filled sigmoid colon but the remainder of the large bowel is decompressed. Large volume of colonic fecal material. BM x2 on 12/15 and 1 on 12/19 but only smears otherwise Family states that MiraLax obstructs the Gtube so she was changed to Lactulose. Trospium stopped (was used for bladder spasms) Improved stool output. 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 Wound care shows that the patient has flaking, maceration and peeling of the skin on areas in the back and bilateral buttock areas. She also has a right elbow stage III pressure ulcer noted. Appropriate wound care has been started. Will hold off on plans for longitudinal float operator IV abx. (6) Multiple sclerosis: Code(s): G35 - Multiple sclerosis Status: Acute Assessment and Plan: Patient with chronic MS with seizures. Continue Vimpat, Tegretol. Continue baclofen. Family requesting information about private duty care and animal care service worker notified. Also spoke with family about hospice care at various times and all questions answered. 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 Patient is on end-stage of MS with complications dysphagia, quadriplegia, on tube feeding, patient has aspiration pneumonia. I have discussed with patient's mother about patient's goal of care. Mother will admit hospice care with patient's daughter, the consider move patient to hospice care in her home after discharge. Consult animal care service worker for aging hospice care meeting move patient to medical floor 12/23: Patient is on comfort care. When I saw and examined patient in the morning, patient was unresponsive to verbal command, patient had slow shallow breathing. Patient is waiting to be transferred to hospice care Subjective Date/time seen: 12/23/24 10:13 Interval history: I saw exam patient today in presents of patient's mother and and patient daughter. Patient was unresponsive, no obvious distress. Patient had slow and shallow breath. Patient is on comfort care. Exam Narrative: GENERAL: Ill-appearing, nonverbal, in no acute distress. Severe malnutrition - LUNGS: Slow shallow breathing - CARDIOVASCULAR: Regular rate and rhythm. No murmur. No JVD. - ABDOMEN: Soft, non-tender and non-distended. No palpable masses. off NG tube feeding - NEUROLOGIC: No focal neurological deficits. CN II-XII grossly intact. - PSYCHIATRIC: Confused, not responsive to verbal command not oriented x 3. s - Objective Data Vital Signs Vital Signs: Vital Signs - 24 hr 12/22/24 11:37 12/22/24 12:00 12/22/24 12:00 Temperature 98.0 F Pulse Rate 103 H 103 H Respiratory Rate 22 H Blood Pressure 116/73 Pulse Oximetry 91 92 Oxygen Delivery High Flow Nasal Cannula Oxygen Flow Rate 2 12/22/24 14:18 12/22/24 14:18 12/22/24 14:27 Temperature Pulse Rate 100 100 108 H Respiratory Rate 20 20 20 Blood Pressure Pulse Oximetry 93 Oxygen Delivery Nasal Cannula Oxygen Flow Rate 2 12/22/24 19:47 12/22/24 20:12 12/22/24 20:17 Temperature Pulse Rate 108 H 102 H Respiratory Rate 20 22 H Blood Pressure Pulse Oximetry 93 92 Oxygen Delivery Nasal Cannula Nasal Cannula Oxygen Flow Rate 2 2 12/22/24 20:18 12/22/24 23:55 12/23/24 01:51 Temperature 97.8 F Pulse Rate 106 H 105 H 120 H Respiratory Rate 22 H 20 24 H Blood Pressure 99/64 L Pulse Oximetry 94 Oxygen Delivery Oxygen Flow Rate 12/23/24 02:09 12/23/24 08:00 Temperature Pulse Rate 109 H 117 H Respiratory Rate 24 H 10 L Blood Pressure Pulse Oximetry 88 L Oxygen Delivery Oxygen Flow Rate Intake/Output Intake/Output: Intake & Output 12/20/24 12/21/24 12/22/24 12/23/24 23:59 23:59 23:59 23:59 Intake Total 2645.2 350 1300 Output Total 1300 2800 1202 150 Balance 1345.2 -2450 98 -150 Meds/Results Medications: Active Medications Generic Name Dose Route Start Last Admin Trade Name Freq PRN Reason Stop Dose Admin Acetaminophen 650 mg 12/14/24 23:40 12/22/24 00:25 Acetaminophen 325 Mg Tablet FEED TUBE 650 mg Q4H PRN Administration Mild Pain (1-3) or Fever Atropine Sulfate 1 drop 12/23/24 02:36 12/23/24 09:58 Atropine Sulfate 1% Ophth Soln 5 Ml Bottle SUBLINGUAL 1 drop Q4H PRN Administration Secretions Lorazepam 1 mg 12/23/24 02:36 12/23/24 09:47 Lorazepam Inj (*Crx) 2 Mg/Ml Vial IV PUSH 1 mg Q2H PRN Administration Anxiety or air hunger Morphine Sulfate 2 mg 12/23/24 02:36 12/23/24 09:48 Morphine Sulfate (*Crx) 2 Mg/Ml Inj IV PUSH 2 mg Q2H PRN Administration Pain Rated 7-10 Prochlorperazine Edisylate 10 mg 12/14/24 23:40 12/18/24 19:52 Prochlorperazine Edisylate 10 Mg/2 Ml Vial IV PUSH 10 mg Q6H PRN Administration Nausea And Vomiting Radiology Results: ITS Impressions Chest/Abdomen/Pelvis CT 12/14/24 20:14 IMPRESSION: Bilateral aspiration pneumonia. Fecal impaction, with mild wall thickening and dilation of the sigmoid colon. Early stercoral colitis is not excluded. Likely cystitis. Chronic right pubic symphysis osteomyelitis. Possible bilateral ishcial decubitus ulcers. Abdomen X-Ray 12/20/24 14:42 IMPRESSION: 1. Distended colon, likely adynamic ileus. 2. Airspace opacities in right mid and lower lung zones and left lower lung zone, consistent with pneumonia. Chest X-Ray 12/21/24 06:22 Impression: Small right pleural effusion with hazy right basilar airspace disease. Correlate for pneumonia. Probable areas of chronic scarring at the right upper lobe and left lower lobe.
[2024-12-23 12:00] VITALS: PULSE 62; RESP 12; O2SAT 73
--- NOTE | 2024-12-23 12:33 | PC.NURSE ---
This RN called to the room from family. Upon entry to the room family concerned that she had . This RN listened to lung and cardiac sounds for 1 minute, along with another RN (Jo). Time of reported to physician at 1229pm. Family remains at the bedside at this time.
--- NOTE | 2024-12-23 14:18 | PC.NURSE ---
transported via [employer] cart to the [facility] [place]. slip operator has release of body information sheet.
--- NOTE | 2024-12-23 15:14 | P.DS_ITS ---
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: Code(s): G35 - Multiple sclerosis; R53.2 - Functional quadriplegia Status: Acute (6) Aspiration pneumonia: Code(s): J69.0 - Pneumonitis due to inhalation of food and vomit Status: Acute (7) Acute hypoxemic respiratory failure: Code(s): J96.01 - Acute respiratory failure with hypoxia Status: Acute DS: Discharge Diagnosis Discharge Diagnosis (1) Fecal impaction: Code(s): K56.41 - Fecal impaction Status: Acute (2) Sepsis: Code(s): A41.9 - Sepsis, unspecified organism Status: Acute (3) Osteomyelitis: Code(s): M86.9 - Osteomyelitis, unspecified Status: Acute (4) Multiple sclerosis: Code(s): G35 - Multiple sclerosis Status: Acute (5) 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 She resides at home and is under the care of her mother and daughter; she receives tube feeds and her routine medications via the tube. She also has a chronically indwelling obrien catheter. 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 There were no associated symptoms of vomiting, diarrhea, LOC, falls or chest pain. 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 bili 0.8 Influenza A/B, RSV, COVID-19: Not detected CXR: Subsegmental airspace disease and/or scarring in the right lower lung with a small adjacent bulla or loculated pneumothorax. Segmental left medial basal atelectasis/consolidation. Possible small right pleural effusion versus chronic pleural blunting. CTAP: Bilateral aspiration pneumonia. Fecal impaction, with mild wall thickening and dilation of the sigmoid colon. Early stercoral colitis is not excluded. Likely cystitis. Chronic right pubic symphysis osteomyelitis. Possible bilateral ishcial decubitus ulcers. Donita Bermeo will be admitted, evaluated and managed for pneumonia with concerns for aspiration Acute hypoxemic respiratory failure: Code(s): J96.01 - Acute respiratory failure with hypoxia Status: Acute Assessment and Plan: Patient presented with SOB and found to be hypoxic requiring up to 3 L nasal cannula felt related to aspiration PNA. She was weaned to room air but had increasing O2 requirement in the evening of 12/17 treated with airvo. CXR was repeated but remained unchanged. Patient was suctioned with some response. She required high AirVo settings; family aware of the severity of the patient's care and confirmed DNR status CPT ordered but patient has a very weak cough so doubt the benefit with this treatment. Airvo was weaned to 2L NC now. Strict NPO. All meds via GTube. Resume TF at low rate and advance slowly. Resume flushes at low rate. Stop IV fluids Patient need O2 therapy Continue bronchodilators. Sepsis: Code(s): A41.9 - Sepsis, unspecified organism Status: Acute Assessment and Plan: Patient presents with shortness of breath and has a weak cough and found to have sepsis. CT of the chest with contrast shows multi segment, bilateral dependent consolidation with surrounding tree-in-bud opacities. She also has a patulous esophagus with fluid. These findings are concerning for bilateral aspiration pneumonia. MRSA nasal swab positive. COVID, RSV and influenza PCR were negative. Lactic acid level was normal but white count elevated and patient febrile. Started on Zosyn and Doxycycline added for atypical coverage and MRSA colonization. White count normal now and fever resolved. Blood cultures negative. UCx negative. Continue antibiotics but change to oral. Wean O2 as tolerated. Aspiration pneumonia: Code(s): J69.0 - Pneumonitis due to inhalation of food and vomit Status: Acute Assessment and Plan: As above. Elevate head of the bed. Before patient decompensated, Speech eval was performed and felt patient not able to handle oral intake or medications. [place] that her worsening dysphagia related to progression of her MS All meds are via GTube currently. No plans for any oral intake or oral meds Resume tube feedings as continuous feedings Advance free water flushes as she tolerates Fecal impaction: Code(s): K56.41 - Fecal impaction Status: Acute Assessment and Plan: CT scan of the abdomen and pelvis shows the rectum is dilated to 9 cm by form stool with mild wall thickening but no significant surrounding inflammatory changes. She has a dilated, mostly air-filled sigmoid colon but the remainder of the large bowel is decompressed. Large volume of colonic fecal material. BM x2 on 12/15 and 1 on 12/19 but only smears otherwise Family states that MiraLax obstructs the Gtube so she was changed to Lactulose. Trospium stopped (was used for bladder spasms) Improved stool output. Follow clinically Osteomyelitis: Code(s): M86.9 - Osteomyelitis, unspecified Status: Acute Assessment and Plan: CT scan also shows possible chronic right pubic symphysis osteomyelitis. Wound care shows that the patient has flaking, maceration and peeling of the skin on areas in the back and bilateral buttock areas. She also has a right elbow stage III pressure ulcer noted. Appropriate wound care has been started. 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 (6) Multiple sclerosis: Code(s): G35 - Multiple sclerosis Status: Acute Assessment and Plan: Patient with chronic MS with seizures. Continue Vimpat, Tegretol. Continue baclofen. Family requesting information about private duty care and social worker palliative care notified. Also spoke with family about hospice care at various times and all questions answered. 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 Patient is on end-stage of MS with complications dysphagia, quadriplegia, on tube feeding, patient has aspiration pneumonia. I have discussed with patient's mother about patient's goal of care. Mother will admit hospice care with patient's daughter, the consider move patient to hospice care in her home after discharge. Consult social worker palliative care for aging hospice care meeting move patient to medical floor 12/22 12/23: Patient is on comfort care. When I saw and examined patient in the morning, patient was unresponsive to verbal command, patient had slow shallow breathing. Patient is waiting to be transferred to hospice care Patient at 12:29 pm today Time Spent with Patient Time attestation: Total time spent providing and/or coordinating discharge services: Exam Narrative: GENERAL: Ill-appearing, nonverbal, in no acute distress. Severe malnutrition - LUNGS: Slow shallow breathing - CARDIOVASCULAR: Regular rate and rhyth m. No murmur. No JVD. - ABDOMEN: Soft, non-tender and non-dist ended. No palpable masses. off NG tube feeding - NEUROLOGIC: No focal neurological defi cits. CN II-XII grossly intact. - PSYCHIATRIC: Confused, not responsive to verbal command not oriented x 3. s - Discharge Plan Discharge Attending physician on discharge: Darcy Myers Discharging Clinician: Darcy Myers Anticipated Discharge Date/Time: 12/23/24 15:23 Patient Disposition: Discharge Instructions: Per Care Coordination: Patient to resume [facility] P: [phone]. RN please fax discharge instructions to: F: [phone] Patient Instructions: Antibiotic Form, Pneumonia (GEN) Patient Language: [place]al[place] Stand Alone Forms: General Discharge Information Discharge Medications: Discontinued amantadine HCl 100 mg capsule 100 mg PO BID Patient Comments: both doses before noon baclofen 10 mg tablet 10 mg PO .COMPLEX Rx Instructions: 10 mg orally 5 TIMES PER DAY; carbamazepine 100 mg tablet,chewable 100 mg PO .COMPLEX Rx Instructions: 100 mg orally 4 TIMES PER DAY trospium 20 mg tablet 20 mg PO BID duloxetine 60 mg capsule,delayed release(DR/EC) 60 mg PO AC lacosamide [Vimpat] 50 mg tablet 50 mg PO BID polyethylene glycol 3350 [Miralax] 17 gram Powder In Packet 17 g feeding tube QAM PRN (Reason: constipation) Patient Comments: PRN Date of admission: 12/15/24 17:27 Primary Care Provider: MarianaEri Admitting Provider: Aubrey Chase Attending physician on admission: Aubrey Chase Condition: Serious
== END 2024-12-23 12:29 | disposition expired | DRG 871 ==
LOC: ANHED 21:01 → ANHIMU 22:17
PROVIDERS: Emergency Medicine; Family Medicine; Internal Medicine; Admitting Provider Internal Medicine; Emergency Provider Emergency Medicine; PCP Internal Medicine; Visit Provider Hospitalist
DX: A41.9 Sepsis, unspecified organism (principal); J69.0 Pneumonitis due to inhalation of food and vomit; L89.013 Pressure ulcer of right elbow, stage 3; J96.01 Acute respiratory failure with hypoxia; R53.2 Functional quadriplegia; M86.68 Other chronic osteomyelitis, other site; G35 Multiple sclerosis; K56.41 Fecal impaction; G40.909 Epilepsy, unspecified, not intractable, without status epilepticus; F32.A Depression, unspecified; Z20.822 Contact with and (suspected) exposure to COVID-19; Z74.01 Bed confinement status; Z93.1 Gastrostomy status; Z22.322 Carrier or suspected carrier of Methicillin resistant Staphylococcus aureus
CPT/HCPCS: 36415; 36600; 71045; 71260; 74018; 74019; 74177; 80053; 80061; 81001; 82375; 82805; 82948; 83050; 83605; 83735; 83880; 84100; 84145; 84484; 85018; 85025; 85055; 85610; 85730; 86140; 87040; 87086; 87493; 87637; 87641; 92526; 92610; 93005; 94640; 94668; 94669; 96361; 96374; 99212; 99285; A9270; G0378; G0463; J0780; J1644; J1940; J2060; J2270; J2543; J3475; J3480; J7030; J7042; Q9967